=== PATIENT | male | born 1990 | race Caucasian/White ===

== ENCOUNTER → 2018-08-12 13:24 | Outpatient (CLI) | payer SELFPAY ==
[2018-08-12 16:09] LABS: Thyroid Stimulating Hormone 3.92 uIU/mL (0.47-4.68)
== END ==
PROVIDERS: PCP Family Medicine; Visit Provider Internal Medicine
DX: E03.9 Hypothyroidism, unspecified (principal)
CPT/HCPCS: 36415; 84443

== ENCOUNTER → 2019-01-03 14:14 | Outpatient (CLI) | payer OTHER, SELFPAY ==
[2019-01-03 15:29] LABS: Creatinine Urine Random 39.6 mg/dL
[2019-01-03 15:54] LABS: Microalbumi Creatinin Ratio Ur 760.1 ug/mg CR (<30); Microalbumin Urine Random 30.1 mg/dL (0-1.6)
== END ==
PROVIDERS: PCP Student in an Organized Health Care Education/Training Program; Visit Provider Student in an Organized Health Care Education/Training Program
DX: E10.9 Type 1 diabetes mellitus without complications (principal)
CPT/HCPCS: 82043; 82570

== ENCOUNTER → 2019-11-21 14:07 | Outpatient (CLI) | payer OTHER, SELFPAY ==
[2019-11-21 15:33] LABS: BUN Creatinine Ratio 27.1 (6-22); Blood Urea Nitrogen 19 mg/dL (9-20); Carbon Dioxide 27 mmol/L (22-32); Chloride 102 mmol/L (98-107); Cholesterol 232 mg/dL (140-199); Estimated Glomerular Filt Rate > 60.0 mL/min (>60); Glucose 173 mg/dL (70-100); HDL Cholesterol 52 mg/dL (40-60); HEMOLYSIS 18 (0-50); LDL Cholesterol Calculated 166 mg/dL (<100); Potassium 3.8 mmol/L (3.4-5.1); Sodium 142 mmol/L (137-145); Triglycerides 69 mg/dL (35-150); Uric Acid 4.4 mg/dL (3.5-8.5)
[2019-11-21 15:37] LABS: Rheumatoid Factor < 8.6 IU/mL (<12.0)
[2019-11-21 16:27] LABS: Vitamin D 25 Hydroxy (D3) 18.2 ng/mL (30.0-100.0)
[2019-11-21 16:38] LABS: TSH w/ Reflex to FT4 3.75 uIU/mL (0.47-4.68)
[2019-11-28 10:26] LABS: ANA Screen, IFA NEGATIVE (NEGATIVE)
== END ==
PROVIDERS: PCP Student in an Organized Health Care Education/Training Program; Visit Provider Student in an Organized Health Care Education/Training Program
DX: E03.9 Hypothyroidism, unspecified (principal); E10.69 Type 1 diabetes mellitus with other specified complication; E10.9 Type 1 diabetes mellitus without complications; E78.5 Hyperlipidemia, unspecified; M79.673 Pain in unspecified foot; M13.0 Polyarthritis, unspecified
CPT/HCPCS: 36415; 80048; 80061; 82306; 83036; 84443; 84550; 86038; 86430

== ENCOUNTER → 2020-11-10 09:45 | Outpatient (CLI) | payer OTHER, SELFPAY ==
--- NOTE | 2020-11-10 09:48 | DI.RAD.S_ITS ---
PROCEDURE: XR SINUS MIN 3V INDICATIONS: Chronic cough TECHNIQUE: 3 views of the sinuses were acquired. COMPARISON: [facility], , CT SINUS SCREEN, 10/18/2004, 15:01. FINDINGS: Sinuses: The visualized sinuses demonstrate no air-fluid levels or mucosal thickening except at the left maxillary sinus where mild mucosal thickening without air-fluid level appears present. The visualized mastoids also appear clear. Bones: No suspicious bony lesions. Nasal septum is midline. IMPRESSION: No air-fluid level is seen. There is a relatively subtle asymmetric increased radiodensity along the mucosal surface of the left maxillary sinus consistent with mild sinusitis in that area at this time. This may be chronic. On a prior sinus CT from 10/18/04 no mucosal thickening had been present in that area. Dictated by: Rahul Jain M.D. on 11/10/2020 at 11:13 Approved by: Rahul Jain M.D. on 11/10/2020 at 11:16
--- NOTE | 2020-11-10 09:48 | DI.RAD.S_ITS ---
PROCEDURE: XR CHEST 2V INDICATIONS: Chronic cough TECHNIQUE: 2 views of the chest were acquired. COMPARISON: None. FINDINGS: Surgical changes and devices: None. Lungs and pleura: Lungs are clear. No pleural effusions or pneumothorax. Mediastinum: Mediastinal contours are normal. Heart size is normal. Bones and chest wall: No suspicious bony abnormalities. Soft tissues appear unremarkable. IMPRESSION: Normal for age, source of current chronic cough symptoms is not seen. Dictated by: Rahul Jain M.D. on 11/10/2020 at 11:10 Approved by: Rahul Jain M.D. on 11/10/2020 at 11:10
== END ==
PROVIDERS: PCP Student in an Organized Health Care Education/Training Program; Referring Provider Student in an Organized Health Care Education/Training Program; Visit Provider Student in an Organized Health Care Education/Training Program
DX: J40 Bronchitis, not specified as acute or chronic (principal); R05 Cough; R04.0 Epistaxis
CPT/HCPCS: 70220; 71046

== ENCOUNTER → 2021-01-11 07:56 | Outpatient (CLI) | payer OTHER, SELFPAY ==
[2021-01-11 10:21] LABS: Vitamin D 25 Hydroxy (D3) 38.4 ng/mL (30.0-100.0)
[2021-01-13 14:05] LABS: Lipase 35 U/L (23-300)
== END ==
PROVIDERS: PCP Student in an Organized Health Care Education/Training Program; Referring Provider Student in an Organized Health Care Education/Training Program; Visit Provider Student in an Organized Health Care Education/Training Program
DX: E03.9 Hypothyroidism, unspecified (principal); E55.9 Vitamin D deficiency, unspecified
CPT/HCPCS: 36415; 82306; 83690; 84443

== ENCOUNTER 2021-08-29 09:43 | Emergency (ER) | payer OTHER, SELFPAY ==
[2021-08-29 09:58] VITALS: BP 202/111; PULSE 81; RESP 17; TEMP 36.6; O2SAT 100
--- NOTE | 2021-08-29 10:07 | ED_ITS ---
HPI - Abdominal Pain General Chief Complaint: Abdominal Pain Stated Complaint: Abd pain- Sent by [facility] Time Seen by Provider: 08/29/21 10:06 Source: patient Mode of arrival: Wheelchair History of Present Illness HPI narrative: The patient was sent from the walk-in clinic due to concerns for cholecystitis. The patient has right upper quadrant pain. However, patient started experiencing pain yesterday. He works at a nearby [employer]. 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 There is a lot of rotational motion involved. He also does workouts. His workouts require rotational motion also. He has pain in his right back, right flank, and right upper quadrant. He has no nausea or vomiting. He denies abdominal intolerance. He has no history of abdominal or gallbladder disease. He does have anxiety, which is currently quite elevated. He is type 1 diabetic, his glucose was 150 this morning. He denies acute illness. Related Data Previous Rx's Medication Instructions Recorded Glucose: Test Strips #100 each 01/06/19 B-D PEN NEEDLE #400 each 11/12/19 insulin lispro 100 unit/mL 5.5 unit SUBCUT QAC #3 ml 12/09/19 subcutaneous half-unit pen (Humalog Allan KwikPen (U-100)) insulin glargine 100 unit/mL (3 32 unit SUBCUT DAILY #15 ml 02/03/21 mL) subcutaneous pen levothyroxine 150 mcg tablet 150 mcg PO QAM #90 tab 06/28/21 lisinopril 5 mg tablet 5 mg PO DAILY #90 tab 08/04/21 methocarbamol 750 mg tablet 750 mg PO Q6H #30 tab 08/29/21 Allergies Allergy/AdvReac Type Severity Reaction Status Date / Time atorvastatin Allergy Mild kidney Verified 08/29/21 10:05 pain Review of Systems Constitutional Constitutional: Denies body ache(s), Denies chills, Denies fever(s) and Denies headache(s) ENT Ears, Nose, Mouth, and Throat: Denies headache(s), Denies sinus pressure and Denies sore throat Cardiovascular Cardiovascular: Denies chest pain, Denies rapid heart rate and Denies dyspnea Respiratory Respiratory: Denies cough and Denies dyspnea Gastrointestinal Gastrointestinal: Reports as per HPI Genitourinary Genitourinary: Denies testicular pain Musculoskeletal Musculoskeletal: Reports back pain Integumentary/Breasts Skin/Breast: Denies rash Neurologic Neurologic: Denies headache(s) Psychiatric Psychiatric: Reports anxiety Patient History Medical History Acne Ankle pain Anxiety Chicken pox (~1996) Chronic back pain Controlled diabetes mellitus type 1 without complications (03/06/17) Dental caries Depression Diabetes mellitus Hearing loss Hypothyroidism (~1995) Post traumatic stress disorder (PTSD) Restless leg syndrome Seasonal allergies Sleep apnea Surgical History History of repair of pyloric stenosis Family History Father Age: 53 Cancer Hypertension Social History Smoking Status: Former smoker alcohol intake: current substance use type: marijuana Smoking Status: Former smoker alcohol intake frequency: a few times a week Substance Use Type: marijuana Exam Initial Vital Signs Initial Vital Signs: Vital Signs Temperature 98 F 08/29/21 09:58 Pulse Rate 81 08/29/21 09:58 Respiratory Rate 17 08/29/21 09:58 Blood Pressure 202/111 H 08/29/21 09:58 Pulse Oximetry 100 08/29/21 09:58 Const General: cooperative and anxious Nutritional Appearance: well nourished [facility] Head: normocephalic and atraumatic Chest Chest: normal inspection of the chest Resp Auscultation: clear to auscultation bilaterally Cardio Rate: regular rate Rhythm: regular rhythm Heart Sounds: S1 normal, S2 normal and no murmurs GI Inspection: normal to inspection Other: Tenderness along the right costal margin. Mild right upper quadrant tenderness, but the issue seems to be the costal margin. No distension. No masses. No guarding rebound. Normal bowel sounds. Back/Spine/Pelvis Back: normal to inspection and No back tenderness Course Course Course Narrative: Patient's symptoms are much improved with ibuprofen and Robaxin. Ultrasound shows a single gallstone, no suggestion of cholecystitis. Orders Ordered: ED Orders 08/29/21 10:00 Urine Microscopic Stat 08/29/21 10:10 US abdomen limited Stat Discontinued Medications Ibuprofen (Ibuprofen 400 Mg Tablet) 800 mg PO NOW ONE Stop: 08/29/21 10:11 Last Admin: 08/29/21 11:05 Dose: 800 mg Documented by: AIRAM Methocarbamol (Methocarbamol 500 Mg Tablet) 750 mg PO NOW ONE Stop: 08/29/21 10:11 Last Admin: 08/29/21 11:05 Dose: 750 mg Documented by: AIRAM Vital Signs Vital signs: Vital Signs - 8 hr 08/29/21 09:58 Temperature 98 F Pulse Rate 81 Respiratory Rate 17 Blood Pressure 202/111 H Pulse Oximetry 100 MDM - Abdominal Pain Lab Data Labs: Lab Results 08/29/21 Range/Units 10:00 Urine RBC 10-30/hpf H (0-5/HPF) Urine WBC 0-1/hpf (0-5/HPF) Ur Squamous Epith Cells 0-1 /hpf (0-5/HPF) Urine Bacteria Few (2-10) H (None) Ur Culture Indicated? Cult not indicated Point of care testing: Urine Dip Bedside Urine Glucose 250 mg/dl Bedside Urine Bilirubin - Negative Bedside Urine Ketone - Negative Urine Specific [place] 1.025 Bedside Urine Occult Blood +++ Bedside Urine pH 6.0 Bedside Urine Protein - Negative Bedside Urine Urobilinogen - Negative Bedside Urine Nitrite - Negative Bedside Urine Leukocytes - Negative Esterase Imaging Data US - abdomen: Radiologist's Impression: [place] [address] Ultrasound Report Signed Patient: Francis Bazan MR#: [id number] : 1990 Acct:[id number] Age/Sex: 30 / M Date of Service: 08/29/21 Loc: ED Accession Number: [id number] ?? Procedure: US abdomen limited Ordering Provider: Buddy Hendricks MD PROCEDURE: US ABDOMEN LIMITED ? INDICATIONS:? RUQ pain ? TECHNIQUE:? Real-time focused scanning was performed of the abdomen, with image documentation.? ? COMPARISON:? None. ? FINDINGS:? The liver is prominent in size and demonstrates no focal lesions. ? A 7 mm nonobstructing gallstone can seen.? ? The gallbladder wall is not thickened, measuring 3 mm or less.? No specific pericholecystic fluid is seen.? The sonogra phic Rodrigez sign is negative. ? There is minimal biliary dilatation, the common bile duct measures 7-8 mm.? ? No significant pancreatic abnormality is seen on these images.? IMPRESSION:? 7 mm nonobstructing gallstone.? No additional sonographic signs cholecystitis are seen. ? Minimal biliary dilatation, measuring 7-8 mm. ? Prominent liver size. ? Note: Concordant preliminary findings given by the manager regulatory upon the completion of the examination to Dr. Hendricks. ? ? Dictated by: Brodie Jean M.D. on 08/29/2021 at 10:11 ? ? Approved by: Brodie Jean M.D. on 08/29/2021 at 10:15?? Discharge Plan Departure Patient Disposition: Home Clinical Impression: Abdominal muscle strain Qualifiers: Encounter type: initial encounter Qualified Code(s): S39.011A - Strain of muscle, fascia and tendon of abdomen, initial encounter Instructions: DI for Abdominal Muscle Strain Activity Restrictions/Additional Instructions: Advil 2 tablets every 6 hours as needed for pain. Robaxin every 6 hours for spasm. Take the medications at the same time. Rest at home for couple days. I have given you a work release. Follow-up with your doctor if not improved within 3 days. Return here as needed. Prescriptions: New methocarbamol 750 mg tablet 750 mg PO Q6H Qty: 30 RF: 0 No Action (DME) Glucose: Test Strips 0 .Route .MEDSUPPLY Qty: 100 RF: 11 (DME) B-D PEN NEEDLE 8MM Qty: 400 RF: 11 Humalog Allan KwikPen U-100 100 unit/mL insulin pen, half-unit 5.5 unit SUBCUT QAC Qty: 3 RF: 11 levothyroxine 150 mcg tablet 150 mcg PO QAM Qty: 90 RF: 1 lisinopril 5 mg tablet 5 mg PO DAILY Qty: 90 RF: 1 insulin glargine 100 unit/mL (3 mL) insulin pen 32 unit SUBCUT DAILY Qty: 15 RF: 3 Referrals: Devon Gibson MD [Primary Care Provider] - Stand Alone Forms: Work Release Note
--- NOTE | 2021-08-29 10:10 | DI.US.S_ITS ---
PROCEDURE: US ABDOMEN LIMITED INDICATIONS: RUQ pain TECHNIQUE: Real-time focused scanning was performed of the abdomen, with image documentation. COMPARISON: None. FINDINGS: The liver is prominent in size and demonstrates no focal lesions. A 7 mm nonobstructing gallstone can seen. The gallbladder wall is not thickened, measuring 3 mm or less. No specific pericholecystic fluid is seen. The sonographic Rodrigez sign is negative. There is minimal biliary dilatation, the common bile duct measures 7-8 mm. No significant pancreatic abnormality is seen on these images. IMPRESSION: 7 mm nonobstructing gallstone. No additional sonographic signs cholecystitis are seen. Minimal biliary dilatation, measuring 7-8 mm. Prominent liver size. Note: Concordant preliminary findings given by the certified neurodiagnostic technologist upon the completion of the examination to Dr. Hendricks. Dictated by: Brodie Jean M.D. on 08/29/2021 at 10:11 Approved by: Brodie Jean M.D. on 08/29/2021 at 10:15
[2021-08-29] MEDS: methocarbamoL 500 MG TABLET 750 MG PO (11:05)
[2021-08-29] MEDS: IBUPROFEN 400 MG TABLET 800 MG PO (11:05)
[2021-08-29 11:51] LABS: Bacteria Urine Few (2-10); Culture Indicated Urine Cult Not Indicated; RBC Urine 10-30/HPF (0-5/HPF); Squamous Epithelial Cell Urine 0-1 /HPF (0-5/HPF); WBC Urine 0-1/HPF (0-5/HPF)
== END 2021-08-29 11:27 | disposition home or self-care (01) ==
PROVIDERS: Emergency Provider Emergency Medicine; PCP Student in an Organized Health Care Education/Training Program
DX: S39.011A Strain of muscle, fascia and tendon of abdomen, initial encounter (principal); X50.0XXA Overexertion from strenuous movement or load, initial encounter
CPT/HCPCS: 76705; 81003; 81015; 99283

== ENCOUNTER → 2021-09-23 15:36 | Outpatient (CLI) | payer OTHER, SELFPAY ==
[2021-09-23 16:01] LABS: Add Manual Diff / Slide Review NO; Basophils Absolute Auto 0 /uL (0-100); Basophils Percent Auto 0.3 % (0-2); Eosinophils Absolute Auto 100 /uL (0-450); Eosinophils Percent Auto 1.6 % (2-4); Hematocrit 44.3 % (41-53); Hemoglobin 15.4 g/dL (13.5-17.5); Lymphocytes Absolute Auto 2300 /uL (1100-4500); Lymphocytes Percent Auto 29.7 % (25-40); Mean Corpuscular HGB Conc 34.7 % (30-36); Mean Corpuscular Hemoglobin 30.8 PG (26-34); Mean Corpuscular Volume 88.5 fL (80-100); Monocytes Absolute Auto 500 /uL (0-900); Neutrophils Absolute Auto 4700 /uL (1500-7000); Neutrophils Percent Auto 61.4 % (50-75); Platelet Count 249 X10^3/uL (150-400); Red Cell Distribution Width 14.5 % (11.6-14.8); White Blood Cell Count 7.6 X10^3/uL (4.5-11.0)
[2021-09-23 16:13] LABS: Hemoglobin A1C% w Est Avg Glu 6.6 % (4.0-6.0)
[2021-09-23 16:21] LABS: Alanine Aminotransferase 31 IU/L (<50); Albumin Globulin Ratio 1.5 (1.0-2.8); Alkaline Phosphatase 79 U/L (38-126); Aspartate Aminotransferase 33 IU/L (17-59); BUN Creatinine Ratio 16.7 (6-22); Bilirubin Total 1.1 mg/dL (0.2-1.3); Blood Urea Nitrogen 15 mg/dL (9-20); Calcium 9.5 mg/dL (8.4-10.2); Carbon Dioxide 31 mmol/L (22-32); Chloride 98 mmol/L (98-107); Estimated Glomerular Filt Rate > 60.0 mL/min (>60); Gamma Glutamyl Transpeptidase 62 U/L (15-73); Globulin 2.7 g/dL (1.7-4.1); Glucose 342 mg/dL (70-100); HEMOLYSIS < 15 (0-50); Lipase 39 U/L (23-300); Potassium 4.7 mmol/L (3.4-5.1); Sodium 138 mmol/L (137-145); Total Protein 6.7 g/dL (6.3-8.2)
== END ==
PROVIDERS: PCP Student in an Organized Health Care Education/Training Program; Referring Provider Student in an Organized Health Care Education/Training Program; Visit Provider Student in an Organized Health Care Education/Training Program
DX: E10.65 Type 1 diabetes mellitus with hyperglycemia (principal); R10.11 Right upper quadrant pain; F10.10 Alcohol abuse, uncomplicated
CPT/HCPCS: 36415; 80053; 82977; 83036; 83690; 85025

== ENCOUNTER 2021-11-03 15:41 | Emergency (ER) | payer OTHER, SELFPAY ==
[2021-11-03 15:50] VITALS: BP 236/128; PULSE 97; RESP 18; TEMP 37.2; O2SAT 97; BMI 21.9
--- NOTE | 2021-11-03 16:02 | ED_ITS ---
HPI - General Adult General Chief complaint: Hypertension Stated complaint: High BP 220/125 Lowest Time Seen by Provider: 11/03/21 16:02 Source: patient Mode of arrival: Ambulatory Limitations: no limitations History of Present Illness HPI narrative: This is a 31-year-old insulin-dependent diabetic male for his entire life he is on levothyroxine and lisinopril. He has had eye surgery for retinopathy with Lasix, scraping for scar tissue and reattachment of his retina. He was on a medication for his blood pressure kidneys in the past but it made him feel very unwell so they stopped it. He has been his blood pressures were typically in the 180s on primary care visits every 3-6 months. Does not normally check it. Sunday he felt very shaky after having 2 energy drinks, some caffeine and no real food. They checked his glucose was was quite elevated he corrected with his pump but his blood pressure was 210/97. He had multiple checks and has been persistently elevated sometimes in the 200s this week. He had 2 days of headache, his blood pressure was 201 70s at that time. He has not had any new acute vision changes. He denies chest pain, shortness of breath currently. He has got a bit of mild nausea but states he has only had energy drinks today and coffee and no food. No vomiting. No abdominal pain. He states he has a 7 mm stone in his gallbladder which he is aware of. No dysuria, urgency frequency or increasing urine output, no swelling in his extremities. 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 His glucose with his monitor today at this time is 2:50 a.m.. He denies other surgeries besides his eye. No allergies. He quit smoking 5 months ago. He drinks 2 alcoholic drinks nightly and on weekends when he goes out will have 10 alcoholic drinks. No illicit. He does drink 1-3 caffeinated drinks or energy drinks daily. 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 Patient states they discuss starting a blood pressure medication but they were more focused on controlling his glucose and getting his vision changes addressed so this had not been fully addressed. Patient is very polite but adamantly does not really want to do any blood work today. He is open to a chest x-ray. Related Data Previous Rx's Medication Instructions Recorded Glucose: Test Strips #100 each 01/06/19 B-D PEN NEEDLE #400 each 11/12/19 insulin lispro 100 unit/mL 5.5 unit (0.055 mL) SUBCUT QAC #3 12/09/19 subcutaneous half-unit pen ml (Humalog Allan KwikPen (U-100)) insulin glargine 100 unit/mL (3 32 unit (0.32 mL) SUBCUT DAILY #15 02/03/21 mL) subcutaneous pen ml levothyroxine 150 mcg tablet 150 mcg PO QAM #90 tab 06/28/21 lisinopril 5 mg tablet 5 mg PO DAILY #90 tab 08/04/21 methocarbamol 750 mg tablet 750 mg PO Q6H #30 tab 08/29/21 lisinopril 20 mg tablet 20 mg PO DAILY #30 tab 11/03/21 Allergies Allergy/AdvReac Type Severity Reaction Status Date / Time atorvastatin Allergy Mild kidney Verified 09/19/21 09:25 pain Review of Systems Review of Systems ROS Unobtainable: All systems reviewed & are unremarkable except as noted in HPI and below Patient History Medical History Acne Ankle pain Anxiety Chicken pox (~1996) Chronic back pain Controlled diabetes mellitus type 1 without complications (03/06/17) Dental caries Depression Diabetes mellitus Hearing loss Hypothyroidism (~1995) Post traumatic stress disorder (PTSD) Restless leg syndrome Seasonal allergies Sleep apnea Surgical History History of repair of pyloric stenosis Family History Father Age: 53 Cancer Hypertension Social History Smoking Status: Former smoker alcohol intake: current substance use type: marijuana Smoking Status: Former smoker alcohol intake frequency: a few times a week Substance Use Type: marijuana Exam Narrative Exam Narrative: GEN: well nourished, well appearing male, alert and oriented x 3, patient appears to be in mild distress. HEENT: Atraumatic, pupils are equal round reactive to light, extraocular movements are intact, nares are clear. HEART: Regular rate and rhythm without murmur, clicks, rubs. LUNGS:Lungs clear to auscultation, no wheezes, rales, crackles, chest moves symmetrically, no tachypnea accessory muscle use. ABD:bowel sounds normal, nondistended,soft, non-tender, no guarding, rebound, rigidity, no masses noted, no hepatosplenomegaly, no bruit or hepatosplenomegaly. :No CVA tenderness MSCL: Non-tender, no muscle atrophy, muscles strength 5/5 upper and lower extremities, full range of motion, normal gait NEURO:CN 2-12 intact, sensation normal SKIN: No rash, erythema or other skin changes noted. Initial Vital Signs Initial Vital Signs: Vital Signs Temperature 98.9 F 11/03/21 15:50 Pulse Rate 97 H 11/03/21 15:50 Respiratory Rate 18 11/03/21 15:50 Blood Pressure 236/128 H 11/03/21 15:50 Pulse Oximetry 97 11/03/21 15:50 Course Orders Ordered: Discontinued Medications Metoprolol Tartrate (Metoprolol Ir 25 Mg Tablet) 50 mg PO NOW ONE Stop: 11/03/21 16:23 Last Admin: 11/03/21 16:30 Dose: 50 mg Documented by: ADIS Reevaluation(s) Reevaluation #1: Recheck BP 175/96. Discussed recommendations from his primary care service to increase his lisinopril. He had metoprolol as evening so we discussed he can start the lisinopril in the morning it does not half to be this evening. Patient and I discussed his findings today. All questions answered. Return precautions Time: 17:36 Consultations Consultation #1: Dr. Santos covering for Dr. Amador. He recommends increasing lisinopril to 20 mg daily at this time rather than adding a 2nd agent. He will also help facilitate follow-up by making sure Dr. Amador is aware patient was here. We did discuss that patient did not have complete workup of but that he is high risk for cardiac disease as well. Vital Signs Vital signs: Vital Signs - 8 hr 11/03/21 15:50 11/03/21 16:34 11/03/21 17:00 Temperature 98.9 F Pulse Rate 97 H 86 75 Respiratory Rate 18 18 Blood Pressure 236/128 H 232/118 H Pulse Oximetry 97 98 99 11/03/21 17:03 11/03/21 17:30 11/03/21 17:32 Temperature Pulse Rate 75 67 70 Respiratory Rate Blood Pressure 173/92 H 175/96 H Pulse Oximetry 99 96 99 Medical Decision Making Lab Data Labs: Lab Results 11/03/21 Range/Units 15:54 SARS-CoV-2 (PCR) Negative (Negative) Imaging Data Chest x-ray: Radiologist's Impression: [address] [address] XRay Report Signed Patient: Francis Bazan MR#: [id number] : 1990 Acct:[id number] Age/Sex: 31 / M Date of Service: 11/03/21 Loc: ED Accession Number: [id number] ?? Procedure: XR chest 1V Ordering Provider: Reena Pacheco D.O. PROCEDURE:? XR CHEST 1V ? INDICATIONS:? shortness of breath ? TECHNIQUE:? One view of the chest was acquired.? ? COMPARISON:? [facility], CR, XR CHEST 2V, 11/10/2020, 9:49. ? FINDINGS:? ? Surgical changes and devices:? None.? ? Lungs and pleura:? Lungs are clear.? No pleural effusions or pneumothorax.? ? Mediastinum:? Mediastinal contours appear normal.? Heart size is normal.? ? Bones and chest wall:? No suspicious bony lesions.? Overlying soft tissues appear unremarkable.? ? IMPRESSION:? No acute cardiopulmonary disease. ? ? Dictated by: Aria Hernandez M.D. on 11/03/2021 at 16:49 ? ? Approved by: Aria Hernandez M.D. on 11/03/2021 at 16:50?? ECG Data Attestation: I personally reviewed and interpreted this ECG as follows: Interpretation: Sinus rhythm rate 83, WI 152 QRS 82 and QTC 444. Patient has nonspecific change. Elevation in V3 but not appreciated in other leads. Patient does not have prior for comparison. MDM Narrative Medical decision making narrative: This is a 31-year-old insulin-dependent diabetic male with known retinopathy and likely other end-organ disease. Patient comes in feeling shaky with elevated blood pressures in the 200 range consistently for the past week. He has been told he was elevated the 180s in the past. He is on 5 mg lisinopril likely more for nephro protection. Patient is. Polite but does not wish to do any lab work we discussed that I have concerns for potential cardiac or end-organ disease issues and that the only way to check this is with lab work. Patient politely refuses. He is open to chest x-ray, EKG was reviewed. Discussed adding an additional blood pressure medication and he may have his lisinopril adjusted as well. Patient is open to this. His glucose is 250 on his monitor today. Besides his hypertension his vital signs are otherwise appropriate. His exam is otherwise reassuring. Patient has labs from 09/23/2021 which show normal renal function, a serum glucose of 342 and hemoglobin A1c of 6.6 with otherwise negative CBC and CMP. Discharge Plan Departure Patient Disposition: Home Clinical Impression: Hypertension Instructions: DI for High Blood Pressure Activity Restrictions/Additional Instructions: Follow-up with your physician for recheck of blood pressure. I suspect you have had longstanding elevated blood pressure. I recommend having your medications adjusted. I spoke with Dr. Santos who is covering for Dr. Gibson today. They recommend increasing lisinopril from 5mg to 20 mg daily. (You can take 4 tablets of your 5mg lisinopril to finish your home prescription. Prescription sent to [facility] in [place] Please return for fevers, chest pain, shortness of breath, lightheadedness or passing out, decrease in urine output or rapidly increasing amounts and frequency of urine output, elevated or persistently high or low glucose or other new or concerning symptoms. Prescriptions: New lisinopril 20 mg tablet 20 mg PO DAILY Qty: 30 0RF No Action (DME) Glucose: Test Strips 0 .Route .MEDSUPPLY Qty: 100 11RF Dose Instruction: As directed Rx Instructions: Test blood sugars up to 3 times daily (DME) B-D PEN NEEDLE 8MM Qty: 400 11RF Dose Instruction: As directed Rx Instructions: TO ADMINISTER INSULIN UP TO 4 TIMES A DAY Humalog Allan DamirPen U-100 100 unit/mL insulin pen, half-unit 5.5 unit SUBCUT QAC Qty: 3 11RF levothyroxine 150 mcg tablet 150 mcg PO QAM Qty: 90 1RF lisinopril 5 mg tablet 5 mg PO DAILY Qty: 90 1RF insulin glargine 100 unit/mL (3 mL) insulin pen 32 unit SUBCUT DAILY Qty: 15 3RF methocarbamol 750 mg tablet 750 mg PO Q6H Qty: 30 0RF Referrals: Devon Gibson MD [Primary Care Provider] -
--- NOTE | 2021-11-03 16:22 | DI.RAD.S_ITS ---
PROCEDURE: XR CHEST 1V INDICATIONS: shortness of breath TECHNIQUE: One view of the chest was acquired. COMPARISON: [facility], CR, XR CHEST 2V, 11/10/2020, 9:49. FINDINGS: Surgical changes and devices: None. Lungs and pleura: Lungs are clear. No pleural effusions or pneumothorax. Mediastinum: Mediastinal contours appear normal. Heart size is normal. Bones and chest wall: No suspicious bony lesions. Overlying soft tissues appear unremarkable. IMPRESSION: No acute cardiopulmonary disease. Dictated by: Aria Hernandez M.D. on 11/03/2021 at 16:49 Approved by: Aria Hernandez M.D. on 11/03/2021 at 16:50
[2021-11-03 16:23] LABS: COVID19 -Nasal RAPID Negative (Negative)
[2021-11-03] MEDS: METOPROLOL IR 25 MG TABLET 50 MG PO (16:30)
[2021-11-03 16:34] VITALS: BP 232/118; PULSE 86; RESP 18; O2SAT 98
[2021-11-03 17:00] VITALS: PULSE 75; O2SAT 99
[2021-11-03 17:03] VITALS: BP 173/92; PULSE 75; O2SAT 99
[2021-11-03 17:30] VITALS: PULSE 67; O2SAT 96
[2021-11-03 17:32] VITALS: BP 175/96; PULSE 70; O2SAT 99
== END 2021-11-03 17:40 | disposition home or self-care (01) ==
PROVIDERS: Emergency Provider Emergency Medicine; PCP Student in an Organized Health Care Education/Training Program
DX: I10 Essential (primary) hypertension (principal); Z87.891 Personal history of nicotine dependence; Z20.822 Contact with and (suspected) exposure to COVID-19
CPT/HCPCS: 71045; 87635; 93005; 93010; 99283; 99284; C9803

== ENCOUNTER → 2021-11-15 14:45 | Outpatient (CLI) | payer OTHER, SELFPAY ==
[2021-11-15 15:39] LABS: Appearance Urine UA CLEAR; Bilirubin Urine UA NEGATIVE (NEGATIVE); Color Urine UA YELLOW; Glucose Urine UA 2+ g/dL (Negative); Ketones Urine UA NEGATIVE (NEGATIVE); Leukocyte Esterase Urine UA NEGATIVE (NEGATIVE); Nitrite Urine UA NEGATIVE (Negative); Occult Blood Urine UA 3+ (Negative); Protein Urine UA 2+ (Negative); Urobilinogen Urine UA 0.2 E.U./dL (0.2)
[2021-11-15 16:00] LABS: Bacteria Urine None Seen; Culture Indicated Urine Cult Not Indicated; RBC Urine 1-5/HPF (0-5/HPF); Squamous Epithelial Cell Urine None Seen (0-5/HPF); WBC Urine 0-1/HPF (0-5/HPF)
== END ==
PROVIDERS: PCP Student in an Organized Health Care Education/Training Program; Referring Provider Student in an Organized Health Care Education/Training Program; Visit Provider Student in an Organized Health Care Education/Training Program
DX: R31.9 Hematuria, unspecified (principal)
CPT/HCPCS: 81001

== ENCOUNTER → 2021-11-18 09:59 | Outpatient (CLI) | payer OTHER, SELFPAY ==
[2021-11-18 10:59] LABS: Add Manual Diff / Slide Review NO; Basophils Absolute Auto 0 /uL (0-100); Basophils Percent Auto 0.4 % (0-2); Eosinophils Absolute Auto 200 /uL (0-450); Eosinophils Percent Auto 1.9 % (2-4); Hematocrit 46.2 % (41-53); Hemoglobin 16.3 g/dL (13.5-17.5); Lymphocytes Absolute Auto 2600 /uL (1100-4500); Lymphocytes Percent Auto 30.4 % (25-40); Mean Corpuscular HGB Conc 35.2 % (30-36); Mean Corpuscular Hemoglobin 30.7 PG (26-34); Mean Corpuscular Volume 87.1 fL (80-100); Monocytes Absolute Auto 600 /uL (0-900); Monocytes Percent Auto 7.5 % (3-14); Neutrophils Absolute Auto 5100 /uL (1500-7000); Neutrophils Percent Auto 59.8 % (50-75); Platelet Count 263 X10^3/uL (150-400); Red Blood Cell Count 5.31 X10^6/uL (4.5-5.9); Red Cell Distribution Width 13.3 % (11.6-14.8); White Blood Cell Count 8.4 X10^3/uL (4.5-11.0)
[2021-11-18 11:13] LABS: BUN Creatinine Ratio 14.9 (6-22); Blood Urea Nitrogen 13 mg/dL (9-20); Calcium 9.7 mg/dL (8.4-10.2); Carbon Dioxide 34 mmol/L (22-32); Chloride 103 mmol/L (98-107); Estimated Glomerular Filt Rate > 60.0 mL/min (>60); Glucose 75 mg/dL (70-100); HEMOLYSIS < 15 (0-50); Potassium 3.3 mmol/L (3.4-5.1); Sodium 143 mmol/L (137-145)
[2021-11-18 11:44] LABS: Cortisol AM (Before 10AM) 15.5 ug/dL (4.46-22.7)
[2021-11-18 11:45] LABS: TSH w/ Reflex to FT4 2.77 uIU/mL (0.47-4.68)
== END ==
PROVIDERS: PCP Student in an Organized Health Care Education/Training Program; Referring Provider Student in an Organized Health Care Education/Training Program; Visit Provider Student in an Organized Health Care Education/Training Program
DX: I16.1 Hypertensive emergency (principal)
CPT/HCPCS: 36415; 80048; 82384; 82533; 84443; 85025

== ENCOUNTER → 2021-11-23 08:50 | Outpatient (CLI) | payer OTHER, SELFPAY ==
--- NOTE | 2021-11-23 08:54 | DI.CT.S_ITS ---
PROCEDURE: CT ABDOMEN PELVIS WO CON INDICATIONS: Hematuria, flank pain TECHNIQUE: Axial sections were acquired from the lung bases to the pubic symphysis. Coronal and sagittal reformats were performed. For radiation dose reduction, the following was used: automated exposure control, adjustment of mA and/or kV according to patient size. COMPARISON: None. FINDINGS: Image quality: Excellent. Lung bases: Unremarkable. Heart: No significant findings. URINARY: Right Kidney: No stones or hydronephrosis. Right Ureter: No hydroureter. Left Kidney: No stones or hydronephrosis. Left Ureter: No hydroureter. Bladder: Normal wall thickness. No stones. ABDOMEN: Liver: Unremarkable. Gallbladder: There are a few small dependent stones within the gallbladder without wall thickening or pericholecystic fat stranding. Biliary ducts: Unremarkable. Pancreas: Unremarkable. Spleen: Unremarkable. Adrenal Glands: Unremarkable. Stomach and Bowel: Stomach, small bowel loops, and colon are normal in caliber and wall thickness. The appendix is normal in appearance. There is colonic diverticulosis without acute diverticulitis. Peritoneum: No abnormal intraperitoneal fluid. No free air. Ventral Wall: No hernia. Abdominal Nodes: No enlarged retroperitoneal or mesenteric lymph nodes. Vessels: Aorta and inferior vena cava are normal in size. PELVIS: Pelvic Organs: Unremarkable. Pelvic Nodes: Unremarkable. Miscellaneous: No inguinal hernias are seen. Bones: Visualized osseous structures demonstrate no suspicious focal lesions. IMPRESSION: 1. No evidence of nephrolithiasis or obstructive uropathy. 2. No evidence of appendicitis. 3. Colonic diverticulosis without acute diverticulitis. Dictated by: Siddharth De La Garza M.D. on 11/23/2021 at 9:33 Approved by: Siddharth De La Garza M.D. on 11/23/2021 at 9:52
== END ==
PROVIDERS: PCP Student in an Organized Health Care Education/Training Program; Referring Provider Student in an Organized Health Care Education/Training Program; Visit Provider Student in an Organized Health Care Education/Training Program
DX: K57.90 Diverticulosis of intestine, part unspecified, without perforation or abscess without bleeding (principal); R31.9 Hematuria, unspecified; R10.9 Unspecified abdominal pain
CPT/HCPCS: 74176

== ENCOUNTER → 2021-11-28 15:00 | Outpatient (CLI) | payer OTHER, SELFPAY ==
[2021-11-28 15:57] LABS: Appearance Urine UA CLEAR; Bilirubin Urine UA NEGATIVE (NEGATIVE); Color Urine UA YELLOW; Glucose Urine UA 2+ g/dL (Negative); Ketones Urine UA NEGATIVE (NEGATIVE); Leukocyte Esterase Urine UA NEGATIVE (NEGATIVE); Nitrite Urine UA NEGATIVE (Negative); Occult Blood Urine UA 3+ (Negative); Protein Urine UA 1+ (Negative); Specific Gravity Urine UA <=1.005 (1.000-1.035); Urobilinogen Urine UA 0.2 E.U./dL (0.2); pH Urine UA 5.5 (4.5-8.0)
[2021-11-28 16:12] LABS: Bacteria Urine None Seen; Culture Indicated Urine Cult Not Indicated; RBC Urine 1-5/HPF (0-5/HPF); Squamous Epithelial Cell Urine None Seen (0-5/HPF); WBC Urine None Seen (0-5/HPF)
== END ==
PROVIDERS: PCP Student in an Organized Health Care Education/Training Program; Referring Provider Student in an Organized Health Care Education/Training Program; Visit Provider Student in an Organized Health Care Education/Training Program
DX: R10.9 Unspecified abdominal pain (principal); R31.9 Hematuria, unspecified; I16.1 Hypertensive emergency; Z53.20 Procedure and treatment not carried out because of patient's decision for unspecified reasons
CPT/HCPCS: 81001

== ENCOUNTER → 2021-12-09 14:30 | Outpatient (CLI) | payer OTHER, SELFPAY | PROVIDERS: PCP Student in an Organized Health Care Education/Training Program; Referring Provider Student in an Organized Health Care Education/Training Program; Visit Provider Student in an Organized Health Care Education/Training Program | DX: R10.9 Unspecified abdominal pain (principal); Z53.20 Procedure and treatment not carried out because of patient's decision for unspecified reasons; R31.9 Hematuria, unspecified; I16.1 Hypertensive emergency ==

== ENCOUNTER 2022-07-19 04:09 | Emergency (ER) | payer SELFPAY ==
[2022-07-19 04:14] VITALS: BP 185/91; PULSE 99; RESP 16; TEMP 36; O2SAT 99; BMI 21.2
--- NOTE | 2022-07-19 04:14 | ED.GENADULT ---
HPI - General Adult General Chief complaint: Upper Respiratory Symptoms Stated complaint: swollen throat, hard to swallow Time Seen by Provider: 07/19/22 04:11 History of Present Illness HPI narrative: 31-year-old male former smoker with history of hypertension and diabetes presents with family in the chief complaint of sore throat and difficulty swallowing over the course of the day. He denies any runny nose, fever or chills. He is had no chest pain, shortness of breath or cough. He states that he feels like he is gagging and it is caused him to vomit a few times. He denies any swelling of his lips, face and has no rash. He denies any exposure to new substances, foods, lotions, soaps or other Related Data Previous Rx's Medication Instructions Recorded Glucose: Test Strips #100 ea 01/06/19 B-D PEN NEEDLE #400 ea 11/12/19 insulin lispro 100 unit/mL 5.5 unit (0.055 mL) SUBCUT QAC #3 12/09/19 subcutaneous half-unit pen mL (Humalog Allan KwikPen (U-100)) insulin glargine 100 unit/mL (3 32 unit (0.32 mL) SUBCUT DAILY #15 02/03/21 mL) subcutaneous pen mL lisinopril 20 mg tablet 20 mg PO DAILY #90 tabs 12/19/21 levothyroxine 150 mcg tablet 150 mcg PO QAM #90 tabs 12/26/21 acyclovir 5 % topical ointment 1 applic topical QID shingles 7 04/06/22 days #30 grams amlodipine 10 mg tablet 10 mg PO DAILY #90 tabs 06/21/22 hydralazine 25 mg tablet 25 mg PO TID #90 tabs 06/21/22 ketorolac 10 mg tablet 10 mg PO Q6H PRN pain #14 tabs 07/19/22 ondansetron 4 mg disintegrating 4 mg PO TID-QID PRN nausea and 07/19/22 tablet vomiting #10 tabs Allergies Allergy/AdvReac Type Severity Reaction Status Date / Time atorvastatin Allergy Mild kidney Verified 06/21/22 11:22 pain Review of Systems Review of Systems Narrative: GENERAL: Denies chills, fatigue, malaise, fever, sweats. HEENT: See HPI RESPIRATORY: Denies dyspnea, cough, wheezing, hemoptysis, sputum. CARDIOVASCULAR: Denies chest pain, palpitations, orthopnea, edema, GASTROINTESTINAL: See HPI : Denies dysuria, frequency, incontinence, hematuria, urinary retention. MUSCULOSKELETAL: denies weakness, joint pain, or bony pain SKIN: Denies rash, skin lesions, or other NEUROLOGIC: Denies weakness, headache, numbness, change in speech, confusion, seizures, incoordination. PSYCHIATRIC: No concerning psychosocial issues. 12 point review of systems is negative except for those stated above Patient History Medical History Acne Ankle pain Anxiety Chicken pox (~1996) Chronic back pain Controlled diabetes mellitus type 1 without complications (03/06/17) Dental caries Depression Diabetes mellitus Hearing loss Hypothyroidism (~1995) Post traumatic stress disorder (PTSD) Restless leg syndrome Seasonal allergies Shingles Sleep apnea Surgical History History of repair of pyloric stenosis Family History Father Age: 54 Cancer Hypertension Social History Smoking Status: Former smoker alcohol intake: current substance use type: marijuana Smoking Status: Former smoker alcohol intake frequency: a few times a week Substance Use Type: marijuana Exam Narrative Exam Narrative: GENERAL: [31] year old patient appears stated age. Well-developed patient, in mild distress. HEAD: Atraumatic. Normocephalic. EYES: Pupils equal round and reactive. Extraocular motions intact. No scleral icterus. No injection or drainage. ENT: Nose without bleeding, purulent drainage. Throat without erythema, tonsillar hypertrophy or exudate. Airway patent. NECK: Trachea midline. Non tender CARDIOVASCULAR: Regular rate and rhythm without murmurs, gallops, or rubs. RESPIRATORY: Clear to auscultation. Breath sounds equal bilaterally. No wheezes, rales, or rhonchi. GASTROINTESTINAL: Abdomen soft, non-tender, nondistended. EXTREMITIES: No edema or joint tenderness. BACK: Nontender without deformity or crepitance. No flank tenderness. NEURO: AOx3. SKIN: No rash or erythema of visible areas Initial Vital Signs Initial Vital Signs: Vital Signs Temperature 96.8 F L 07/19/22 04:14 Pulse Rate 99 H 07/19/22 04:14 Respiratory Rate 16 07/19/22 04:14 Blood Pressure 185/91 H 07/19/22 04:14 Pulse Oximetry 99 07/19/22 04:14 Oxygen Delivery Method 07/19/22 04:14 Course Orders Ordered: ED Orders 07/19/22 04:35 Throat Culture Stat Discontinued Medications Al Hydrox/Mg Hydrox/Simethicone 20 ml/ Lidocaine HCl 15 ml 0 ml PO NOW ONE Stop: 07/19/22 04:16 Last Admin: 07/19/22 04:21 Dose: 10 ml Documented By: SUSIE Ondansetron HCl (Ondansetron 4 Mg Odt Prepack) 1 bottle MISC SEEINSTR ONE Stop: 07/19/22 04:16 Last Admin: 07/19/22 04:20 Dose: 1 bottle Documented By: SUSIE Vital Signs Vital signs: Vital Signs - 8 hr 07/19/22 04:14 Temperature 96.8 F L Pulse Rate 99 H Respiratory Rate 16 Blood Pressure 185/91 H Pulse Oximetry 99 Oxygen Delivery Method Room Air Medical Decision Making Lab Data Labs: Point of Care Testing Rapid Strep A Negative Point of care testing: Point of Care Testing Rapid Strep A Negative MDM Narrative Additional Information: patient feeling much better after above stated therapies. He is tolerating orals, has no trouble swallowing or breathing. Exam is most consistent with a mild uvulitis. There is no evidence of peritonsillar abscess, strep is negative. We did discuss the potential of using Decadron, however he is a type 1 diabetic and his sugars have been running slightly high lately, as a result we elected not to employed this modality. Patient given return precautions and questions answered to his apparent satisfaction Discharge Plan Departure Patient Disposition: Home Clinical Impression: Uvulitis, Vomiting Instructions: DI for Vomiting -- Adult Activity Restrictions/Additional Instructions: *You have been diagnosed with [uvulitis and vomiting] *What to do: *Please continue to take your regular medications as directed. [x ] New medication prescriptions sent to your pharmacy: [ [facility]] [ ] New medication written as a paper prescription [ ] No new medications given *Please follow up with your primary care provider in 2-3 days, call for an appointment. Let them know you were seen in the Emergency Department and that we ask that you be seen in follow up. We will electronically transmit a record of today's note if your PCP is in our system *If you do not have a primary care provider please contact the [facility] Resource line at [phone]. They will ask some questions about your medical history and help get you set up with a doctor in the community. *Return to Emergency Department if you should have any new, worsening or concerning symptoms, such as [fever greater than 101 F, shaking chills, worsening pain, persistent vomiting or other bothersome symptoms] Prescriptions: New ketorolac 10 mg tablet 10 mg PO Q6H PRN (Reason: pain) Qty: 14 0RF ondansetron 4 mg tablet,disintegrating 4 mg PO TID-QID PRN (Reason: nausea and vomiting) Qty: 10 0RF No Action (DME) Glucose: Test Strips 0 .Route .MEDSUPPLY Qty: 100 11RF Dose Instruction: As directed Rx Instructions: Test blood sugars up to 3 times daily (DME) B-D PEN NEEDLE 8MM Qty: 400 11RF Dose Instruction: As directed Rx Instructions: TO ADMINISTER INSULIN UP TO 4 TIMES A DAY Humalog Allan KwikPen U-100 100 unit/mL insulin pen, half-unit 5.5 unit SUBCUT QAC Qty: 3 11RF lisinopril 20 mg tablet 20 mg PO DAILY Qty: 90 3RF levothyroxine 150 mcg tablet 150 mcg PO QAM Qty: 90 2RF insulin glargine 100 unit/mL (3 mL) insulin pen 32 unit SUBCUT DAILY Qty: 15 3RF acyclovir 5 % ointment 1 applic topical QID 7 Days Qty: 30 1RF Rx Instructions: Minimum 4 times daily to any rash eruption, with potential to go up to 5-6 times daily if helping. amlodipine 10 mg tablet 10 mg PO DAILY Qty: 90 3RF hydralazine 25 mg tablet 25 mg PO TID Qty: 90 0RF Referrals: Devon Gibson MD [Primary Care Provider] -
[2022-07-19] MEDS: ONDANSETRON 4 MG ODT PREPACK 1 BOTTLE MISC (04:20)
[2022-07-19] MEDS: MAG HYDROX/ALUMINUM/SIMETH SUS 20 ML, LIDOCAINE VISCOUS 2% 15 ML PO (04:21)
[2022-07-19 05:44] VITALS: BP 175/74; PULSE 85; RESP 18; O2SAT 100
== END 2022-07-19 05:46 | disposition home or self-care (01) ==
PROVIDERS: Emergency Provider Emergency Medicine; PCP Student in an Organized Health Care Education/Training Program
DX: K12.2 Cellulitis and abscess of mouth (principal); R11.10 Vomiting, unspecified
CPT/HCPCS: 82384; 87070; 87077; 87147; 87880; 99283

== ENCOUNTER → 2022-08-16 10:44 | Outpatient (CLI) | payer SELFPAY ==
[2022-08-21 23:08] LABS: Creatinine, 24 Urine 1208 mg/24 hr (1000-2000); Creatinine,Urine 54.9 mg/dL (Not Estab.); Dopamine, Ur 24hr 125 ug/24 hr (0-510); Epinephrine, U 24hr <2 ug/24 hr (0-20); Norepinephrine Ur 24hr <11 ug/24 hr (0-135)
== END ==
PROVIDERS: PCP Student in an Organized Health Care Education/Training Program; Referring Provider Student in an Organized Health Care Education/Training Program; Visit Provider Student in an Organized Health Care Education/Training Program
DX: I16.1 Hypertensive emergency (principal)
CPT/HCPCS: 82384

== ENCOUNTER → 2022-08-17 08:53 | Outpatient (CLI) | payer SELFPAY ==
--- NOTE | 2022-08-17 09:11 | DI.ECHO.S_ITS ---
[facility] +---------+ : : [address] : : : : [phone] : : : : Phone: [phone]+ Echocardiogram Report + + :Name: YASMIN SMALLWOOD Study Date: 08/17/2022 Height: 67 in : :[facility] ReadingLocation: Weight: 140 lb : : Gender: Male BSA: 1.7 m2 : :: 1990 Age: 31 yrs BP: 165/97 mmHg: :Reason For Study: Hypertension : :Ordering Physician: MICAELA, : :SHRUTHI Performed By: Cedric Beard : :Referring: SHRUTHI HINOJOSA : + + Interpretation Summary The left ventricle is normal in size. There is mild concentric left ventricular hypertrophy. The ejection fraction is estimated to be 65-70%. The right ventricle is normal in size and function. No significant valvular pathology seen. The IVC is of normal diameter and collapses greater than 50% with a sniff. This suggests a low right atrial pressure of 3 mm Hg. Procedure: A two-dimensional transthoracic echocardiogram with color flow and Doppler was performed. The study quality was technically adequate. There is no prior echocardiogram noted for this patient. The patient was in normal sinus rhythm during the exam. Left Ventricle: The left ventricle is normal in size. There is mild concentric left ventricular hypertrophy. There is no thrombus. Left ventricular systolic function is normal. The ejection fraction is estimated to be 65-70%. There are no focal wall motion abnormalities. Diastolic parameters suggest a relaxation abnormality of the left ventricle, consistent with probable normal filling pressures. Right Ventricle: The right ventricle is normal in size and function. Atria: Both atria are normal in size. The interatrial septum grossly appears intact with no obvious evidence for an atrial septal defect. Mitral Valve: The mitral valve is normal in structure and function. There is no mitral regurgitation noted. Aortic Valve: The aortic valve is normal in structure and function. The aortic valve is trileaflet. There is no aortic valve stenosis. There is trace aortic regurgitation. Tricuspid Valve: The tricuspid valve is normal in structure and function. Pulmonary artery pressures cannot be estimated because of the lack of a measurable TR jet velocity. There is trace tricuspid regurgitation. Pulmonic Valve: The pulmonic valve is normal in structure and function. There is no pulmonic valvular regurgitation. Great Vessels: The aortic root is normal size. The dimensions of the ascending aorta are normal. The IVC is of normal diameter and collapses greater than 50% with a sniff. This suggests a low right atrial pressure of 3 mm Hg. Pericardium/ Pleura There is no pericardial effusion. There is no pleural effusion. MMode/2D Measurements & Calculations LVIDd: 4.2 cm LVOT diam: 2.1 cm LVIDs: 2.8 cm Ao root diam: 3.4 cm FS: 33.3 % asc Aorta Diam: 3.0 cm IVSd: 1.2 cm LVPWd: 1.3 cm LV velasco. diameter/BSA (cm/m^2): 2.4 LV sys. diameter/BSA (cm/m^2): 1.6 LA dimension: 3.0 cm RA long axis: 4.9 cm LA A2 area: 17.6 cm2 RA area: 14.1 cm2 LA A4 area: 17.0 cm2 RA vol: 34.1 ml LA length (vol): 5.2 cm RA : 19.6 ml/m2 LA vol: 48.9 ml LA vol index: 28.2 ml/m2 TAPSE_phl: 2.4 cm Doppler Measurements & Calculations Ao V2 max: 155.0 cm/sec LVOT Max Josafat: 131.0 cm/sec Ao V2 mean: 106.0 cm/sec LV V1 max P.9 mmHg Ao max P.0 mmHg LV V1 VTI: 25.0 cm Ao mean P.0 mmHg SURY(I,D): 3.1 cm2 Ao V2 VTI: 28.1 cm SURY(V,D): 2.9 cm2 sev ratio: 0.89 SURY indexed to BSA (cm^2/m^2): 1.8 MV E max josafat: 104.0 cm/sec SV(LVOT): 86.6 ml MV A max josafat: 113.0 cm/sec MV E/A: 0.92 Med Peak E' Josafat: 7.5 cm/sec E/E' med: 13.8 Lat Peak E' Josafat: 11.6 cm/sec E/E' lat: 9.0 E/e' average: 11.4 MV dec time: 0.26 sec AV VR_phl: 0.85 MV P1/2t-pr_phl: 76.0 msec SURY(VTI)/BSA_phl: 1.8 Reading Physician:04:14 PM
== END ==
PROVIDERS: PCP Student in an Organized Health Care Education/Training Program; Referring Provider Student in an Organized Health Care Education/Training Program; Visit Provider Student in an Organized Health Care Education/Training Program
DX: I16.1 Hypertensive emergency (principal)
CPT/HCPCS: 93306

== ENCOUNTER → 2022-09-25 17:29 | Outpatient (CLI) | payer OTHER, SELFPAY ==
--- NOTE | 2022-09-25 17:37 | DI.RAD.S_ITS ---
PROCEDURE: XR CHEST 2V INDICATIONS: Cough, congestion TECHNIQUE: 2 views of the chest were acquired. COMPARISON: [facility], CR, XR CHEST 1V, 11/03/2021, 16:26. [facility], CR, XR CHEST 2V, 11/10/2020, 9:49. FINDINGS: Surgical changes and devices: None. Lungs and pleura: No acute airspace opacity. No pleural effusions or pneumothorax. Mediastinum: Mediastinal contours are normal. Heart size is normal. Bones and chest wall: No suspicious bony abnormalities. Soft tissues appear unremarkable. IMPRESSION: No acute cardiopulmonary process demonstrated radiographically. Dictated by: Stewart Alejandra M.D. on 09/25/2022 at 17:04 Approved by: Stewart Alejandra M.D. on 09/25/2022 at 17:06
== END ==
PROVIDERS: PCP Student in an Organized Health Care Education/Training Program; Referring Provider Student in an Organized Health Care Education/Training Program; Visit Provider Student in an Organized Health Care Education/Training Program
DX: R05.9 Cough, unspecified (principal); Z87.891 Personal history of nicotine dependence
CPT/HCPCS: 71046

== ENCOUNTER → 2022-09-29 09:03 | Outpatient (CLI) | payer OTHER, SELFPAY ==
--- NOTE | 2022-09-29 09:06 | DI.US.S_ITS ---
PROCEDURE: US ABDOMEN LIMITED INDICATIONS: PAIN. HISTORY OF BILIARY DISEASE. TECHNIQUE: Real-time focused scanning was performed of the abdomen, with image documentation. COMPARISON: [facility], CT, CT ABDOMEN PELVIS WO CON, 11/23/2021, 8:54. [facility], US, US ABDOMEN LIMITED, 08/29/2021, 10:36. FINDINGS: The liver is increased in size and demonstrates no focal lesions. Minimal mobile gallbladder sludge can be seen. There are multiple mobile gallstone seen, with the largest measuring up to 9 mm. The gallbladder wall is not thickened, measuring 3 mm or less. No specific pericholecystic fluid is seen. The sonographic Rodrigez sign is negative. There is no biliary dilatation, the common bile duct measures 5-6 mm. No significant pancreatic abnormality is seen on these images. However, the pancreas is not well seen. The right kidney is prominent in size, measuring 13.7 cm, with mildly increased generalized echogenicity. No hydronephrosis is seen. IMPRESSION: Gallbladder sludge and multiple mobile gallstones are seen, without additional sonographic signs of cholecystitis. The common bile duct measures near the upper limits of normal. Mildly enlarged liver. Mildly prominent right kidney size, without hydronephrosis. Dictated by: Brodie Jean M.D. on 09/29/2022 at 15:14 Approved by: Brodie Jean M.D. on 09/29/2022 at 15:15
== END ==
PROVIDERS: PCP Student in an Organized Health Care Education/Training Program; Referring Provider Student in an Organized Health Care Education/Training Program; Visit Provider Student in an Organized Health Care Education/Training Program
DX: K80.20 Calculus of gallbladder without cholecystitis without obstruction (principal); R10.11 Right upper quadrant pain; R16.0 Hepatomegaly, not elsewhere classified
CPT/HCPCS: 76705

== ENCOUNTER → 2022-10-24 12:45 | Outpatient (CLI) | payer OTHER, MEDICAID, SELFPAY ==
[2022-10-24 15:43] LABS: Creatinine Urine Random 59.8 mg/dL; Protein (Total) Urine Random 1012 mg/dL (0-12); Protein Creatinine Ratio Urine 16.92 GRAM/24H
[2022-10-28 11:51] LABS: Renin Activity < 0.167 ng/mL/hr (0.167-5.380)
== END ==
PROVIDERS: PCP Student in an Organized Health Care Education/Training Program; Referring Provider Internal Medicine Cardiovascular Disease; Visit Provider Internal Medicine Cardiovascular Disease
DX: I10 Essential (primary) hypertension (principal)
CPT/HCPCS: 36415; 82088; 82570; 84156; 84244

== ENCOUNTER 2022-10-29 02:21 | Emergency (ER) | payer OTHER, MEDICAID, SELFPAY ==
--- NOTE | 2022-10-29 02:23 | ED_ITS ---
HPI - SOB/Dyspnea General Chief Complaint: Shortness of Breath/Dyspnea Stated Complaint: sob Time Seen by Provider: 10/29/22 02:23 History of Present Illness HPI Narrative: 32-year-old male former smoker with history of hypertension diabetes presents with family in the chief complaint of increasing shortness of breath over the course of the day. He states that he has been having trouble with swelling in his lower extremities for some time and as a result he alternates the dosing of his amlodipine between 5 and 10 mg over the course of the week with the permission of his carding utility tender. He states that he feels short of breath with exertion and when he lays back, he has had some cough and denies much in the way of sputum production. He denies any runny nose or sore throat. He denies any fever. He denies change in his medications or diet. He denies recent trauma, travel or history of blood clot Related Data Previous Rx's Medication Instructions Recorded Glucose: Test Strips #100 ea 01/06/19 B-D PEN NEEDLE #400 ea 11/12/19 insulin lispro 100 unit/mL 5.5 unit (0.055 mL) SUBCUT QAC #3 12/09/19 subcutaneous half-unit pen mL (Humalog Allan KwikPen (U-100)) insulin glargine 100 unit/mL (3 32 unit (0.32 mL) SUBCUT DAILY #15 02/03/21 mL) subcutaneous pen mL lisinopril 20 mg tablet 20 mg PO DAILY #90 tabs 12/19/21 levothyroxine 150 mcg tablet 150 mcg PO QAM #90 tabs 12/26/21 ondansetron 4 mg disintegrating 4 mg PO DAILY PRN nausea and 08/01/22 tablet vomiting #90 tabs clonidine 0.3 mg/24 hr weekly 1 patch transdermal QWEEK #4 ea 09/25/22 transdermal patch amlodipine 5 mg tablet 5 mg PO DAILY #90 tabs 10/24/22 amoxicillin 500 mg capsule 1,000 mg PO Q8H 5 days #30 caps 10/29/22 furosemide 40 mg tablet (Lasix) 40 mg PO DAILY 4 days #4 tabs 10/29/22 Allergies Allergy/AdvReac Type Severity Reaction Status Date / Time atorvastatin Allergy Mild kidney Verified 09/25/22 16:29 pain Review of Systems Review of Systems Narrative: GENERAL: Denies chills, fatigue, malaise, fever, sweats. HEENT: See HPI RESPIRATORY: See HPI CARDIOVASCULAR: See HPI GASTROINTESTINAL: Denies nausea, vomiting, abdominal pain, diarrhea, constipation, melena. : Denies dysuria, frequency, incontinence, hematuria, urinary retention. MUSCULOSKELETAL: See HPI SKIN: Denies rash, skin lesions, or other NEUROLOGIC: Denies weakness, headache, numbness, change in speech, confusion, seizures, incoordination. PSYCHIATRIC: No concerning psychosocial issues. 12 point review of systems is negative except for those stated above Patient History Medical History Acne Ankle pain Anxiety Chicken pox (~1996) Chronic back pain Controlled diabetes mellitus type 1 without complications (03/06/17) Dental caries Depression Diabetes mellitus Hearing loss Hypothyroidism (~1995) Post traumatic stress disorder (PTSD) Restless leg syndrome Seasonal allergies Shingles Sleep apnea Surgical History History of repair of pyloric stenosis Family History Father Age: 54 Cancer Hypertension Social History Smoking Status: Former smoker alcohol intake: current substance use type: marijuana Smoking Status: Former smoker alcohol intake frequency: a few times a week Substance Use Type: marijuana Exam Narrative Exam Narrative: GENERAL: [32] year old patient appears stated age. Well-developed patient, in mild distress. Anxious, rapid shallow breathing HEAD: Atraumatic. Normocephalic. EYES: Pupils equal round and reactive. Extraocular motions intact. No scleral icterus. No injection or drainage. ENT: Nose without bleeding, purulent drainage. Throat without erythema, tonsillar hypertrophy or exudate. Airway patent. NECK: Trachea midline. Non tender CARDIOVASCULAR: Regular rate and rhythm without murmurs, gallops, or rubs. RESPIRATORY: Faint crackles in bilateral bases, he is breathing rapidly and shallow but no use of accessory muscles, no hypoxemia GASTROINTESTINAL: Abdomen soft, non-tender, nondistended. EXTREMITIES: 1+ pitting edema in his bilateral lower extremity BACK: Nontender without deformity or crepitance. No flank tenderness. NEURO: AOx3. SKIN: No rash or erythema of visible areas Initial Vital Signs Initial Vital Signs: Vital Signs Temperature 98.9 F 10/29/22 02:34 Pulse Rate 94 H 10/29/22 02:34 Respiratory Rate 25 H 10/29/22 02:34 Blood Pressure 185/97 H 10/29/22 02:34 Pulse Oximetry 100 10/29/22 02:34 Oxygen Delivery Method 10/29/22 02:34 Course Orders Ordered: ED Orders 10/29/22 02:33 Procalcitonin Stat VBG [Venous Blood Gas] Stat 10/29/22 02:34 XR chest 2V Stat Complete Blood Count AUTO DIFF Stat Comprehensive Metabolic Panel Stat Lactate (Lactic Acid) Stat Lipase Stat Magnesium Stat NT-proBNP (BNP-Adult 18+) Stat Partial Thromboplastin Time Stat Prothrombin Time INR Stat Troponin & CK Cardiac Panel Stat EKG-12 Lead Stat 10/29/22 03:25 Covid-19 + FLU A/B + RSV - PCR Stat Reevaluation(s) Reevaluation #1: Patient admittedly gets crippling anxiety with blood draws and for a significant amount of time refuses blood work or IV but eventually suggest we may attempt an IV. He states that in the past he has received anxiolytics but that seems to make things worse and would prefer not getting any medication to help with the process. Despite our best efforts 1st attempt at an IV was unsuccessful and patient refused any further attempts. He does understand that without IV access and blood work we are at risk for missing underlying diagnoses including significant heart failure or other cardiac issues, electrolyte disturbance, diabetic emergencies or other. Soon after this IV attempt patient's respiratory symptoms have completely resolved, he is calm and absent of any shortness of breath Vital Signs Vital signs: Vital Signs - 8 hr 10/29/22 02:34 Temperature 98.9 F Pulse Rate 94 H Respiratory Rate 25 H Blood Pressure 185/97 H Pulse Oximetry 100 Oxygen Delivery Method Room Air MDM - SOB/Dyspnea Imaging Data Chest x-ray: Radiologist's Impression: Bilateral infiltrates MDM Narrative Medical decision making narrative: [32-year-old male former smoker with history of hypertension and diabetes presents with shortness of breath over the course of the day] Multiple etiologies for patient's symptoms considered including, but not limited to: [Congestive heart failure, cardiac disease, pulmonary embolism, pneumonia, COVID, flu, peripheral edema from amlodipine versus other] Prior Charts reviewed: Including multiple emergency department visits from 2021 including hypertension, uvulitis among others Imaging reviewed: Bibasilar infiltrates Patient shortness of breath completely resolved after attempts at IV and blood draw. Chest x-ray does demonstrate bilateral infiltrates and we will treat with antibiotics. Despite multiple conversations patient refuses any further attempts at lab work or IV. It seems unlikely that any significant underlying diagnosis is present given his complete resolution of symptoms. We discussed multiple times and at length about the risk associated with not completing the workup but patient states he understands and accepts these risks. Given x-ray findings we will treat with antibiotics. We discussed keeping him on amlodipine and adding a diuretic versus switching the amlodipine which could certainly be contributing to peripheral edema and he would prefer not to do that which seems reasonable, allowing his carding utility tender to make changes Patient's symptoms improved over duration of stay with above-stated therapies. Findings and discharge diagnosis discussed with patient/family followed by verbalization of understanding Return precautions discussed with patient/family whom verbalize understanding of diagnosis and plan Discharge Plan Departure Patient Disposition: Home Clinical Impression: Pneumonia, Edema, peripheral Instructions: DI for Pneumonia -- Adult, DI for Peripheral Edema -- Bilateral Activity Restrictions/Additional Instructions: *You have been diagnosed with [pneumonia and bilateral peripheral edema] *What to do: *Please continue to take your regular medications as directed. [x ] New medication prescriptions sent to your pharmacy: [[facility] ] [ ] New medication written as a paper prescription [ ] No new medications given *Please follow up with your primary care provider in 2-3 days, call for an appointment. Let them know you were seen in the Emergency Department and that we ask that you be seen in follow up. We will electronically transmit a record of today's note if your PCP is in our system *If you do not have a primary care provider please contact the [facility] Resource line at [phone]. They will ask some questions about your medical history and help get you set up with a doctor in the community. *Return to Emergency Department if you should have any new, worsening or concerning symptoms, such as [fever greater than 101 F, shaking chills, worsening pain, persistent vomiting or other bothersome symptoms] Prescriptions: New amoxicillin 500 mg capsule 1,000 mg PO Q8H 5 Days Qty: 30 0RF furosemide [Lasix] 40 mg tablet 40 mg PO DAILY 4 Days Qty: 4 0RF No Action (DME) Glucose: Test Strips 0 .Route .MEDSUPPLY Qty: 100 11RF Dose Instruction: As directed Rx Instructions: Test blood sugars up to 3 times daily (DME) B-D PEN NEEDLE 8MM Qty: 400 11RF Dose Instruction: As directed Rx Instructions: TO ADMINISTER INSULIN UP TO 4 TIMES A DAY Humalog Allan Hector U-100 100 unit/mL insulin pen, half-unit 5.5 unit SUBCUT QAC Qty: 3 11RF lisinopril 20 mg tablet 20 mg PO DAILY Qty: 90 3RF levothyroxine 150 mcg tablet 150 mcg PO QAM Qty: 90 2RF ondansetron 4 mg tablet,disintegrating 4 mg PO DAILY PRN (Reason: nausea and vomiting) Qty: 90 1RF amlodipine 5 mg tablet 5 mg PO DAILY Qty: 90 3RF insulin glargine 100 unit/mL (3 mL) insulin pen 32 unit SUBCUT DAILY Qty: 15 3RF clonidine 0.3 mg/24 hr patch weekly 1 patch transdermal QWEEK Qty: 4 11RF Referrals: Devon Gibson MD [Primary Care Provider] - Stand Alone Forms: Patient Portal/API
[2022-10-29 02:31] VITALS: PULSE 95; O2SAT 100
[2022-10-29 02:34] VITALS: BP 185/97; PULSE 94; RESP 25; TEMP 37.2; O2SAT 100; BMI 22.3
--- NOTE | 2022-10-29 02:34 | DI.RAD.S_ITS ---
PROCEDURE: XR CHEST 2V INDICATIONS: SOB TECHNIQUE: 2 views of the chest were acquired. COMPARISON: [facility], CR, XR CHEST 2V, 09/25/2022, 17:44. FINDINGS: Surgical changes and devices: None. Lungs and pleura: Atelectasis and or infiltrate noted in the costophrenic sulci bilaterally. Low lung volumes accentuate pulmonary interstitium Mediastinum: Mediastinal contours are normal. Heart size is normal. Bones and chest wall: No suspicious bony abnormalities. Soft tissues appear unremarkable. IMPRESSION: Bibasilar atelectasis and or infiltrate Approved by: Pepito Fallon M.D. on 10/29/2022 at 6:44
[2022-10-29 02:39] VITALS: BP 181/106; PULSE 107; O2SAT 100
[2022-10-29 04:09] LABS: Influenza A - CEPHEID Flu A NEGATIVE (NEGATIVE); Influenza B - CEPHEID Flu B NEGATIVE (NEGATIVE); Respiratory Syncytial Virus Negative (Negative)
[2022-10-29 04:11] LABS: COVID-19 CEPHEID 4-PLEX PCR Negative (Negative)
[2022-10-29 04:15] VITALS: BP 170/96; PULSE 82; RESP 20; TEMP 36.4; O2SAT 96
== END 2022-10-29 04:00 | disposition home or self-care (01) ==
PROVIDERS: Emergency Provider Emergency Medicine; PCP Student in an Organized Health Care Education/Training Program
DX: J18.9 Pneumonia, unspecified organism (principal); R60.0 Localized edema; R07.9 Chest pain, unspecified; Z79.899 Other long term (current) drug therapy; Z20.822 Contact with and (suspected) exposure to COVID-19
CPT/HCPCS: 0241U; 71046; 93005; 93010; 99281; 99284

== ENCOUNTER → 2022-12-06 15:56 | Outpatient (CLI) | payer OTHER, MEDICAID, SELFPAY ==
[2022-12-06 17:31] LABS: Creatinine Urine Random 76.9 mg/dL
[2022-12-06 18:06] LABS: Microalbumi Creatinin Ratio Ur 21950.5 ug/mg CR (<30)
== END ==
PROVIDERS: PCP Student in an Organized Health Care Education/Training Program; Referring Provider Internal Medicine Cardiovascular Disease; Visit Provider Internal Medicine Cardiovascular Disease
DX: I10 Essential (primary) hypertension (principal)
CPT/HCPCS: 82043; 82570

== ENCOUNTER 2022-12-21 09:32 | Emergency (ER) | payer OTHER, MEDICAID, SELFPAY ==
[2022-12-21] VITALS (31 sets, daily range): BP systolic 161–238; BP diastolic 86–124; PULSE 62–79; RESP 10–17; TEMP 37.1; O2SAT 94–99; BMI 24.5
--- NOTE | 2022-12-21 09:43 | ED_ITS ---
HPI - General Adult <Ministerio Alexandre MD - Last Filed: 12/21/22 22:30> General Chief complaint: Hypertension Stated complaint: sent by DR olivera BP T-3/headache/ Time Seen by Provider: 12/21/22 09:43 History of Present Illness HPI narrative: 32 year old male with history of DM1, hypertension presenting with poorly controlled hypertension, neck pain, headaches. Pt referred from clinic 2/2 blood pressures consistently above 200's. Pt reports that he had difficulty controlling blood pressures over the last several days, pt reports good compliance with his medications. Intermittent nausea, no deyanira abdominal pain. No fevers. Pt reports being resistant to getting labs drawn because he does not like needles. Continues to make urine. Related Data Home Medications Medication Instructions Recorded Confirmed hydralazine 100 mg tablet 100 mg PO TID 11/24/22 12/06/22 losartan 50 mg tablet 50 mg PO BEDTIME 11/24/22 12/06/22 pen needle, diabetic 32 gauge x #50 ea 11/24/22 12/06/22 (BD Ultra-Fine Neelima Pen Needle) Previous Rx's Medication Instructions Recorded Glucose: Test Strips #100 ea 01/06/19 B-D PEN NEEDLE #400 ea 11/12/19 ondansetron 4 mg disintegrating 4 mg PO DAILY PRN nausea and 08/01/22 tablet vomiting #90 tabs clonidine 0.3 mg/24 hr weekly 1 patch transdermal QWEEK #4 ea 09/25/22 transdermal patch propranolol 60 mg capsule,24 60 mg PO DAILY #30 caps 12/06/22 hr,extended release spironolactone 100 mg tablet 100 mg PO DAILY #30 tabs 12/06/22 torsemide 20 mg tablet 20 - 60 mg PO DAILY PRN edema #90 12/06/22 tabs Humalog Allan KwikPen U-100 100 5.5 unit (0.055 mL) SUBCUT QAC #15 12/14/22 unit/mL subcutaneous half-unit pen mL (insulin lispro) Lantus Solostar U-100 Insulin 100 24 unit (0.24 mL) SUBCUT QAM #15 mL 12/14/22 unit/mL (3 mL) subcutaneous pen (insulin glargine) levothyroxine 150 mcg tablet 150 mcg PO QAM #90 tabs 02/28/23 Allergies Allergy/AdvReac Type Severity Reaction Status Date / Time atorvastatin Allergy Mild kidney Verified 12/21/22 09:46 pain Patient History <Ministerio Alexandre MD - Last Filed: 12/21/22 22:30> Medical History Acne Ankle pain Anxiety Chicken pox (~1996) Chronic back pain Controlled diabetes mellitus type 1 without complications (03/06/17) Dental caries Depression Diabetes mellitus Essential hypertension Hearing loss Hypothyroidism (~1995) Post traumatic stress disorder (PTSD) Restless leg syndrome Seasonal allergies Shingles Sleep apnea Surgical History History of repair of pyloric stenosis Family History Father Age: 54 Cancer Hypertension Social History Smoking Status: Former smoker alcohol intake: current substance use type: marijuana Smoking Status: Former smoker alcohol intake frequency: a few times a week Substance Use Type: marijuana Exam <Ministerio Alexandre MD - Last Filed: 12/21/22 22:30> Narrative Exam Narrative: Vitals reviewed. Nursing note reviewed Constitutional: interactive, chronically ill appearing, pale HENT: Moist mucous membranes EYES: No scleral icterus NECK: no masses CV: Well perfused peripherally, no cyanosis present PULM: Unlabored respirations, symmetric chest rise ABD: Non-distended MS: No gross deformities, pitting edema in the bilateral lower extremities SKIN: Warm and dry PSYCH: flat affect NEURO: Follows simple commands, moves extremities, interactive with exam Initial Vital Signs Initial Vital Signs: Vital Signs Temperature 98.7 F 12/21/22 09:40 Pulse Rate 77 12/21/22 09:40 Respiratory Rate 15 12/21/22 09:40 Blood Pressure 228/114 H 12/21/22 09:40 Pulse Oximetry 99 12/21/22 09:40 Oxygen Delivery Method Room Air 12/21/22 09:40 <Kevin Timmons DO - Last Filed: 12/22/22 00:35> Initial Vital Signs Initial Vital Signs: Vital Signs Temperature 98.7 F 12/21/22 09:40 Pulse Rate 77 12/21/22 09:40 Respiratory Rate 15 12/21/22 09:40 Blood Pressure 228/114 H 12/21/22 09:40 Pulse Oximetry 99 12/21/22 09:40 Oxygen Delivery Method Room Air 12/21/22 09:40 Course <Ministerio Alexandre MD - Last Filed: 12/21/22 22:30> Orders Ordered: ED Orders 12/21/22 16:28 COVID19 -Nasal RAPID/Pre-Proc Stat 12/21/22 19:06 Creatinine Urine Random Stat Sodium Urine Random Stat UA Complete [Urinalysis and Microscopic] Stat Urine Culture Stat Discontinued Medications Acetaminophen (Acetaminophen 325 Mg Tablet) 650 mg PO NOW ONE Stop: 12/21/22 19:20 Last Admin: 12/21/22 19:27 Dose: 650 mg Documented By: WILBERT Hydralazine HCl (Hydralazine 25 Mg Tablet) 25 mg PO NOW ONE Stop: 12/21/22 10:08 Last Admin: 12/21/22 10:31 Dose: 25 mg Documented By: ELAINE Hydralazine HCl (Hydralazine 25 Mg Tablet) 100 mg PO NOW ONE Stop: 12/21/22 21:18 Last Admin: 12/21/22 22:12 Dose: 100 mg Documented By: GENE Labetalol HCl (Labetalol 100 Mg Tablet) 100 mg PO NOW ONE Stop: 12/21/22 13:36 Last Admin: 12/21/22 13:47 Dose: 100 mg Documented By: LILIAN Lorazepam (Lorazepam 0.5 Mg Tablet) 1 mg PO NOW ONE Stop: 12/21/22 10:08 Last Admin: 12/21/22 10:32 Dose: 1 mg Documented By: ELAINE Losartan Potassium (Losartan 50 Mg Tablet) 50 mg PO NOW ONE Stop: 12/21/22 10:08 Last Admin: 12/21/22 10:32 Dose: 50 mg Documented By: ELAINE Ondansetron HCl (Ondansetron 4 Mg Odt) 4 mg SL NOW ONE Stop: 12/21/22 10:20 Last Admin: 12/21/22 10:23 Dose: 4 mg Documented By: ELAINE Vital Signs Vital signs: Vital Signs - 8 hr 12/21/22 17:00 12/21/22 17:30 12/21/22 18:00 Pulse Rate 67 67 67 Respiratory Rate 16 13 12 Blood Pressure 201/99 H 201/106 H 211/105 H Pulse Oximetry 97 96 97 Oxygen Delivery Method Room Air 12/21/22 18:30 12/21/22 19:00 12/21/22 19:30 Pulse Rate 62 65 Respiratory Rate 12 14 Blood Pressure 203/100 H 217/112 H 220/109 H Pulse Oximetry 96 97 Oxygen Delivery Method Room Air Room Air 12/21/22 19:30 12/21/22 20:00 12/21/22 20:30 Pulse Rate 66 64 64 Respiratory Rate 10 L 16 12 Blood Pressure 196/97 H 161/86 H Pulse Oximetry 98 96 95 Oxygen Delivery Method 12/21/22 21:00 12/21/22 21:24 12/21/22 22:08 Pulse Rate 65 71 Respiratory Rate 12 14 Blood Pressure 193/97 H 204/99 H Pulse Oximetry 96 97 Oxygen Delivery Method Room Air 12/21/22 22:45 12/21/22 23:00 12/21/22 23:30 Pulse Rate 69 66 68 Respiratory Rate 13 13 Blood Pressure Pulse Oximetry Oxygen Delivery Method 12/21/22 23:38 12/21/22 23:38 12/22/22 00:00 Pulse Rate 70 68 Respiratory Rate 13 14 Blood Pressure 183/97 H Pulse Oximetry Oxygen Delivery Method <Kevin Timmons, DO - Last Filed: 12/22/22 00:35> Orders Ordered: ED Orders 12/21/22 16:28 COVID19 -Nasal RAPID/Pre-Proc Stat 12/21/22 19:06 Creatinine Urine Random Stat Sodium Urine Random Stat UA Complete [Urinalysis and Microscopic] Stat Urine Culture Stat Discontinued Medications Acetaminophen (Acetaminophen 325 Mg Tablet) 650 mg PO NOW ONE Stop: 12/21/22 19:20 Last Admin: 12/21/22 19:27 Dose: 650 mg Documented By: WILBERT Hydralazine HCl (Hydralazine 25 Mg Tablet) 25 mg PO NOW ONE Stop: 12/21/22 10:08 Last Admin: 12/21/22 10:31 Dose: 25 mg Documented By: ELAINE Hydralazine HCl (Hydralazine 25 Mg Tablet) 100 mg PO NOW ONE Stop: 12/21/22 21:18 Last Admin: 12/21/22 22:12 Dose: 100 mg Documented By: GENE Labetalol HCl (Labetalol 100 Mg Tablet) 100 mg PO NOW ONE Stop: 12/21/22 13:36 Last Admin: 12/21/22 13:47 Dose: 100 mg Documented By: LILIAN Lorazepam (Lorazepam 0.5 Mg Tablet) 1 mg PO NOW ONE Stop: 12/21/22 10:08 Last Admin: 12/21/22 10:32 Dose: 1 mg Documented By: ELAINE Losartan Potassium (Losartan 50 Mg Tablet) 50 mg PO NOW ONE Stop: 12/21/22 10:08 Last Admin: 12/21/22 10:32 Dose: 50 mg Documented By: ELAINE Ondansetron HCl (Ondansetron 4 Mg Odt) 4 mg SL NOW ONE Stop: 12/21/22 10:20 Last Admin: 12/21/22 10:23 Dose: 4 mg Documented By: ELAINE Vital Signs Vital signs: Vital Signs - 8 hr 12/21/22 17:00 12/21/22 17:30 12/21/22 18:00 Pulse Rate 67 67 67 Respiratory Rate 16 13 12 Blood Pressure 201/99 H 201/106 H 211/105 H Pulse Oximetry 97 96 97 Oxygen Delivery Method Room Air 12/21/22 18:30 12/21/22 19:00 12/21/22 19:30 Pulse Rate 62 65 Respiratory Rate 12 14 Blood Pressure 203/100 H 217/112 H 220/109 H Pulse Oximetry 96 97 Oxygen Delivery Method Room Air Room Air 12/21/22 19:30 12/21/22 20:00 12/21/22 20:30 Pulse Rate 66 64 64 Respiratory Rate 10 L 16 12 Blood Pressure 196/97 H 161/86 H Pulse Oximetry 98 96 95 Oxygen Delivery Method 12/21/22 21:00 12/21/22 21:24 12/21/22 22:08 Pulse Rate 65 71 Respiratory Rate 12 14 Blood Pressure 193/97 H 204/99 H Pulse Oximetry 96 97 Oxygen Delivery Method Room Air 12/21/22 22:45 12/21/22 23:00 12/21/22 23:30 Pulse Rate 69 66 68 Respiratory Rate 13 13 Blood Pressure Pulse Oximetry Oxygen Delivery Method 12/21/22 23:38 12/21/22 23:38 12/22/22 00:00 Pulse Rate 70 68 Respiratory Rate 13 14 Blood Pressure 183/97 H Pulse Oximetry Oxygen Delivery Method Medical Decision Making <Ministerio Alexandre MD - Last Filed: 12/21/22 22:30> Lab Data 12/21/22 13:36 12/21/22 13:36 Labs: Lab Results 12/21/22 12/21/22 12/21/22 Range/Units 13:36 13:36 13:36 WBC 15.0 H (4.5-11.0) X10^3/uL RBC 3.84 L (4.5-5.9) X10^6/uL Hgb 11.0 L (13.5-17.5) g/dL Hct 31.5 L (41-53) % MCV 82.1 (80-100) fL MCH 28.6 (26-34) PG MCHC 34.8 (30-36) % RDW 14.8 (11.6-14.8) % Plt Count 402 H (150-400) X10^3/uL Neut % (Auto) 77.1 H (50-75) % Lymph % (Auto) 13.7 L (25-40) % [place] % (Auto) 5.8 (3-14) % Eos % (Auto) 2.5 (2-4) % Baso % (Auto) 0.9 (0-2) % Neut # (Auto) 28616 H (5863-7929) /uL Lymph # (Auto) 2000 (5151-9137) /uL [place] # (Auto) 900 (0-900) /uL Eos # (Auto) 400 (0-450) /uL Baso # (Auto) 100 (0-100) /uL Sodium 136 L (137-145) mmol/L Potassium 3.3 L (3.4-5.1) mmol/L Chloride 105 (98-107) mmol/L Carbon Dioxide 27 (22-32) mmol/L BUN 56 H (9-20) mg/dL Creatinine 4.88 H (0.66-1.25) mg/dL Estimated GFR 15 L (>60) mL/min BUN/Creatinine Ratio 11.5 (6-22) Glucose 84 (70-100) mg/dL Calcium 7.9 L (8.4-10.2) mg/dL Total Bilirubin 0.5 (0.2-1.3) mg/dL AST 31 (17-59) IU/L ALT 21 (<50) IU/L Alkaline Phosphatase 98 (38-126) U/L Total Protein 5.7 L (6.3-8.2) g/dL Albumin 2.6 L (3.5-5.0) g/dL Globulin 3.1 (1.7-4.1) g/dL Albumin/Globulin Ratio 0.8 L (1.0-2.8) TSH 8.93 H (0.47-4.68) uIU/mL Free T4 2.19 (0.78-2.19) ng/dL Urine Color Urine Appearance Urine pH (4.5-8.0) Ur Specific [place] (1.000-1.035) Urine Protein (Negative) Urine Glucose (UA) (Negative) g/dL Urine Ketones (NEGATIVE) Urine Occult Blood (Negative) Urine Nitrate (Negative) Urine Bilirubin (NEGATIVE) Urine Urobilinogen (0.2) E.U./dL Ur Leukocyte Esterase (NEGATIVE) Urine RBC (0-5/HPF) Urine WBC (0-5/HPF) Ur Squamous Epith Cells (0-5/HPF) Urine Bacteria (None) Hyaline Casts (None) Ur Culture Indicated? Ur Random Sodium (30-90) mmol/L Urine Creatinine mg/dL SARS-CoV-2 (PCR) (Negative) 12/21/22 12/21/22 12/21/22 Range/Units 16:28 19:06 19:06 WBC (4.5-11.0) X10^3/uL RBC (4.5-5.9) X10^6/uL Hgb (13.5-17.5) g/dL Hct (41-53) % MCV (80-100) fL MCH (26-34) PG MCHC (30-36) % RDW (11.6-14.8) % Plt Count (150-400) X10^3/uL Neut % (Auto) (50-75) % Lymph % (Auto) (25-40) % [place] % (Auto) (3-14) % Eos % (Auto) (2-4) % Baso % (Auto) (0-2) % Neut # (Auto) (0381-3465) /uL Lymph # (Auto) (5315-8471) /uL [place] # (Auto) (0-900) /uL Eos # (Auto) (0-450) /uL Baso # (Auto) (0-100) /uL Sodium (137-145) mmol/L Potassium (3.4-5.1) mmol/L Chloride (98-107) mmol/L Carbon Dioxide (22-32) mmol/L BUN (9-20) mg/dL Creatinine (0.66-1.25) mg/dL Estimated GFR (>60) mL/min BUN/Creatinine Ratio (6-22) Glucose (70-100) mg/dL Calcium (8.4-10.2) mg/dL Total Bilirubin (0.2-1.3) mg/dL AST (17-59) IU/L ALT (<50) IU/L Alkaline Phosphatase (38-126) U/L Total Protein (6.3-8.2) g/dL Albumin (3.5-5.0) g/dL Globulin (1.7-4.1) g/dL Albumin/Globulin Ratio (1.0-2.8) TSH (0.47-4.68) uIU/mL Free T4 (0.78-2.19) ng/dL Urine Color Yellow Urine Appearance Sl cloudy Urine pH 6.5 (4.5-8.0) Ur Specific [place] 1.015 (1.000-1.035) Urine Protein 2+ H (Negative) Urine Glucose (UA) 1+ H (Negative) g/dL Urine Ketones Negative (NEGATIVE) Urine Occult Blood 1+ H (Negative) Urine Nitrate Negative (Negative) Urine Bilirubin Negative (NEGATIVE) Urine Urobilinogen 0.2 (0.2) E.U./dL Ur Leukocyte Esterase Negative (NEGATIVE) Urine RBC 1-5/hpf (0-5/HPF) Urine WBC 5-10/hpf H (0-5/HPF) Ur Squamous Epith Cells 1-5 /hpf (0-5/HPF) Urine Bacteria Few (2-10) H (None) Hyaline Casts 1-5/lpf (None) Ur Culture Indicated? Specimen cultured Ur Random Sodium 36 (30-90) mmol/L Urine Creatinine 48.2 mg/dL SARS-CoV-2 (PCR) Negative (Negative) Point of Care Testing Glucose POC 71 Point of care testing: Point of Care Testing Glucose POC 71 MDM Narrative Medical decision making narrative: 32 year old male presenting with poorly controlled hypertension, headaches, and nausea in the setting of poorly controlled DM1, found to have new onset renal failure. On presentation, vitals notable hypertension. Physical exam notable for ill appearing 32 year old male, reassuring cardiopulmonary exam, benign abdomen, pitting edema in the bilateral lower extremities. Initial concern for electrolyte derangement, medication non-compliance, medication effect, renal failure, infectious etiology, vascular dissection. Pt highly resistive to IV access/lab draw. Discussed that pt would require IV access for further evaluation of possible acute emergent pathology. Pt eventually convinced to allow IV access. Labs notable for DOTTIE with Cr at 4.88, up from baseline for 0.8, one year prior to presentation. No clear evidence of acute infectious. Evaluation of vascular dissection deferred to inpatient team. Pt administered multiple medications to control hypertension without significant effect. Discussed findings with pt and family at bedside. Discussed case with nephrology and internal medicine, pt subsequently accepted for admission at [facility] for ongoing management. <Kevin Timmons DO - Last Filed: 12/22/22 00:35> Lab Data Labs: Lab Results 12/21/22 12/21/22 12/21/22 Range/Units 13:36 13:36 13:36 WBC 15.0 H (4.5-11.0) X10^3/uL RBC 3.84 L (4.5-5.9) X10^6/uL Hgb 11.0 L (13.5-17.5) g/dL Hct 31.5 L (41-53) % MCV 82.1 (80-100) fL MCH 28.6 (26-34) PG MCHC 34.8 (30-36) % RDW 14.8 (11.6-14.8) % Plt Count 402 H (150-400) X10^3/uL Neut % (Auto) 77.1 H (50-75) % Lymph % (Auto) 13.7 L (25-40) % [place] % (Auto) 5.8 (3-14) % Eos % (Auto) 2.5 (2-4) % Baso % (Auto) 0.9 (0-2) % Neut # (Auto) 34961 H (5934-6641) /uL Lymph # (Auto) 2000 (2693-7370) /uL [place] # (Auto) 900 (0-900) /uL Eos # (Auto) 400 (0-450) /uL Baso # (Auto) 100 (0-100) /uL Sodium 136 L (137-145) mmol/L Potassium 3.3 L (3.4-5.1) mmol/L Chloride 105 (98-107) mmol/L Carbon Dioxide 27 (22-32) mmol/L BUN 56 H (9-20) mg/dL Creatinine 4.88 H (0.66-1.25) mg/dL Estimated GFR 15 L (>60) mL/min BUN/Creatinine Ratio 11.5 (6-22) Glucose 84 (70-100) mg/dL Calcium 7.9 L (8.4-10.2) mg/dL Total Bilirubin 0.5 (0.2-1.3) mg/dL AST 31 (17-59) IU/L ALT 21 (<50) IU/L Alkaline Phosphatase 98 (38-126) U/L Total Protein 5.7 L (6.3-8.2) g/dL Albumin 2.6 L (3.5-5.0) g/dL Globulin 3.1 (1.7-4.1) g/dL Albumin/Globulin Ratio 0.8 L (1.0-2.8) TSH 8.93 H (0.47-4.68) uIU/mL Free T4 2.19 (0.78-2.19) ng/dL Urine Color Urine Appearance Urine pH (4.5-8.0) Ur Specific [place] (1.000-1.035) Urine Protein (Negative) Urine Glucose (UA) (Negative) g/dL Urine Ketones (NEGATIVE) Urine Occult Blood (Negative) Urine Nitrate (Negative) Urine Bilirubin (NEGATIVE) Urine Urobilinogen (0.2) E.U./dL Ur Leukocyte Esterase (NEGATIVE) Urine RBC (0-5/HPF) Urine WBC (0-5/HPF) Ur Squamous Epith Cells (0-5/HPF) Urine Bacteria (None) Hyaline Casts (None) Ur Culture Indicated? Ur Random Sodium (30-90) mmol/L Urine Creatinine mg/dL SARS-CoV-2 (PCR) (Negative) 12/21/22 12/21/22 12/21/22 Range/Units 16:28 19:06 19:06 WBC (4.5-11.0) X10^3/uL RBC (4.5-5.9) X10^6/uL Hgb (13.5-17.5) g/dL Hct (41-53) % MCV (80-100) fL MCH (26-34) PG MCHC (30-36) % RDW (11.6-14.8) % Plt Count (150-400) X10^3/uL Neut % (Auto) (50-75) % Lymph % (Auto) (25-40) % [place] % (Auto) (3-14) % Eos % (Auto) (2-4) % Baso % (Auto) (0-2) % Neut # (Auto) (9414-5556) /uL Lymph # (Auto) (5658-5344) /uL [place] # (Auto) (0-900) /uL Eos # (Auto) (0-450) /uL Baso # (Auto) (0-100) /uL Sodium (137-145) mmol/L Potassium (3.4-5.1) mmol/L Chloride (98-107) mmol/L Carbon Dioxide (22-32) mmol/L BUN (9-20) mg/dL Creatinine (0.66-1.25) mg/dL Estimated GFR (>60) mL/min BUN/Creatinine Ratio (6-22) Glucose (70-100) mg/dL Calcium (8.4-10.2) mg/dL Total Bilirubin (0.2-1.3) mg/dL AST (17-59) IU/L ALT (<50) IU/L Alkaline Phosphatase (38-126) U/L Total Protein (6.3-8.2) g/dL Albumin (3.5-5.0) g/dL Globulin (1.7-4.1) g/dL Albumin/Globulin Ratio (1.0-2.8) TSH (0.47-4.68) uIU/mL Free T4 (0.78-2.19) ng/dL Urine Color Yellow Urine Appearance Sl cloudy Urine pH 6.5 (4.5-8.0) Ur Specific [place] 1.015 (1.000-1.035) Urine Protein 2+ H (Negative) Urine Glucose (UA) 1+ H (Negative) g/dL Urine Ketones Negative (NEGATIVE) Urine Occult Blood 1+ H (Negative) Urine Nitrate Negative (Negative) Urine Bilirubin Negative (NEGATIVE) Urine Urobilinogen 0.2 (0.2) E.U./dL Ur Leukocyte Esterase Negative (NEGATIVE) Urine RBC 1-5/hpf (0-5/HPF) Urine WBC 5-10/hpf H (0-5/HPF) Ur Squamous Epith Cells 1-5 /hpf (0-5/HPF) Urine Bacteria Few (2-10) H (None) Hyaline Casts 1-5/lpf (None) Ur Culture Indicated? Specimen cultured Ur Random Sodium 36 (30-90) mmol/L Urine Creatinine 48.2 mg/dL SARS-CoV-2 (PCR) Negative (Negative) Point of Care Testing Glucose POC 71 Point of care testing: Point of Care Testing Glucose POC 71 <Kevin Timmons, DO - Last Filed: 12/22/22 00:35> Critical Care Time Critical Care Time: Yes Total Critical Care Time: 45 Attestation: The high probability of a clinically significant, sudden or life threatening deterioration of the [] system(s) required my full and direct attention, intervention and personal management. The aggregate critical care time was [45] minutes. This time is in addition to time spent performing reported procedures but includes the following: x Data Review and interpretation [x] Patient assessment and monitoring of vital signs [x] Documentation [x] Medication orders and management Discharge Plan Departure Patient Disposition: [facility] Clinical Impression: Acute renal failure Prescriptions: No Action (DME) Glucose: Test Strips 0 .Route .MEDSUPPLY Qty: 100 11RF Dose Instruction: As directed Rx Instructions: Test blood sugars up to 3 times daily (DME) B-D PEN NEEDLE 8MM Qty: 400 11RF Dose Instruction: As directed Rx Instructions: TO ADMINISTER INSULIN UP TO 4 TIMES A DAY ondansetron 4 mg tablet,disintegrating 4 mg PO DAILY PRN (Reason: nausea and vomiting) Qty: 90 1RF insulin glargine [Lantus Solostar U-100 Insulin] 100 unit/mL (3 mL) insulin pen 24 unit SUBCUT QAM Qty: 15 0RF Rx Instructions: Lantus pen only please for insurance coverage Humalog Allan KwikPen U-100 100 unit/mL insulin pen, half-unit 5.5 unit SUBCUT QAC Qty: 15 11RF Rx Instructions: Humalog only for insurance coverage please levothyroxine 150 mcg tablet 150 mcg PO QAM Qty: 90 3RF clonidine 0.3 mg/24 hr patch weekly 1 patch transdermal QWEEK Qty: 4 11RF (DME) pen needle, diabetic [BD Ultra-Fine Neelima Pen Needle] 32 gauge x 5/32 needle See Rx Instructions .ROUTE .MEDSUPPLY Qty: 50 Patient Comments: USE TO INJECT INSULIN PEN 4 TIMES DAILY.Pt is overdue to follow up appt. Please call office.[phone]. Must have appt for further refills Rx Instructions: As directed losartan 50 mg tablet 50 mg PO BEDTIME Patient Comments: TAKE ONE TABLET BY MOUTH NIGHTLY AT BEDTIME hydralazine 100 mg tablet 100 mg PO TID Hold Instructions: Patient insists on once daily dosing Patient Comments: TAKE ONE TABLET BY MOUTH THREE TIMES DAILY torsemide 20 mg tablet 20 - 60 mg PO DAILY PRN (Reason: edema) Qty: 90 0RF spironolactone 100 mg tablet 100 mg PO DAILY Qty: 30 0RF propranolol 60 mg capsule,extended release 24 hr 60 mg PO DAILY Qty: 30 0RF Referrals: Devon Gibson MD [Primary Care Provider] -
[2022-12-21] MEDS: ONDANSETRON 4 MG ODT SL (10:23)
[2022-12-21] MEDS: HYDRALAZINE 25 MG TABLET PO (10:31)
[2022-12-21] MEDS: LORazepam 0.5 MG TABLET 1 MG PO (10:32)
[2022-12-21] MEDS: LOSARTAN 50 MG TABLET PO (10:32)
--- NOTE | 2022-12-21 11:34 | PC.NURSE ---
Pt reports feeling the affect of the ativan and allowed this Rn to attempt IV access but would only let RN attempt on pt's L forearm. This RN attempted once wihtout success. Pt stated that he felt like he was going to have an anxiety attack and per pt request, this RN is giving pt a few minutes before attempting an IV again. notified.
--- NOTE | 2022-12-21 12:12 | PC.NURSE ---
Pt continues to refuse to let this RN place an IV anywhere other than his L forearm. This RN attempted an IV but the moment the needle made contact with his arm pt yelled, take it out!. The RN removed needle and pt refused anymore IV attempts.
[2022-12-21 13:47] LABS: Add Manual Diff / Slide Review NO; Basophils Absolute Auto 100 /uL (0-100); Basophils Percent Auto 0.9 % (0-2); Eosinophils Absolute Auto 400 /uL (0-450); Eosinophils Percent Auto 2.5 % (2-4); Hematocrit 31.5 % (41-53); Lymphocytes Absolute Auto 2000 /uL (1100-4500); Lymphocytes Percent Auto 13.7 % (25-40); Mean Corpuscular HGB Conc 34.8 % (30-36); Mean Corpuscular Hemoglobin 28.6 PG (26-34); Mean Corpuscular Volume 82.1 fL (80-100); Monocytes Absolute Auto 900 /uL (0-900); Monocytes Percent Auto 5.8 % (3-14); Neutrophils Absolute Auto 11600 /uL (1500-7000); Neutrophils Percent Auto 77.1 % (50-75); Platelet Count 402 X10^3/uL (150-400); Red Blood Cell Count 3.84 X10^6/uL (4.5-5.9); Red Cell Distribution Width 14.8 % (11.6-14.8)
[2022-12-21] MEDS: LABETALOL 100 MG TABLET PO (13:47)
[2022-12-21 14:01] LABS: Alanine Aminotransferase 21 IU/L (<50); Albumin 2.6 g/dL (3.5-5.0); Albumin Globulin Ratio 0.8 (1.0-2.8); Alkaline Phosphatase 98 U/L (38-126); Aspartate Aminotransferase 31 IU/L (17-59); BUN Creatinine Ratio 11.5 (6-22); Bilirubin Total 0.5 mg/dL (0.2-1.3); Blood Urea Nitrogen 56 mg/dL (9-20); Calcium 7.9 mg/dL (8.4-10.2); Carbon Dioxide 27 mmol/L (22-32); Chloride 105 mmol/L (98-107); Estimated Glomerular Filt Rate 15 mL/min (>60); Globulin 3.1 g/dL (1.7-4.1); Glucose 84 mg/dL (70-100); HEMOLYSIS < 15 (0-50); Potassium 3.3 mmol/L (3.4-5.1); Sodium 136 mmol/L (137-145); Total Protein 5.7 g/dL (6.3-8.2)
[2022-12-21 14:17] LABS: Free T4, Direct Thyroxine 2.19 ng/dL (0.78-2.19)
[2022-12-21 14:31] LABS: Thyroid Stimulating Hormone 8.93 uIU/mL (0.47-4.68)
--- NOTE | 2022-12-21 14:36 | PC.NURSE ---
1330: Pt continues to refuse IV but is willing to have lab draw blood. Lab notified.
--- NOTE | 2022-12-21 15:01 | PC.NURSE ---
After speaking with MD, pt is willing to have RN place IV in L hand. This RN educated pt on need to place an IV in a larger vein that will tolerate larger IVs and medications but pt refused to have a line placed anywhere else. This RN placed a 20g in L hand.
--- NOTE | 2022-12-21 15:13 | DI.US.S_ITS ---
PROCEDURE: US RENAL COMPLETE INDICATIONS: RENAL FAILURE TECHNIQUE: Real-time scanning was performed of the kidneys and bladder, with image documentation. COMPARISON: [facility], CT, CT ABDOMEN PELVIS WO [facility], 11/23/2021, 8:54. FINDINGS: Kidneys: Right kidney measures 14.5 cm long; left kidney measures 14.8 cm long. Right renal cortical thickness is 2.5 cm; left renal cortical thickness is 3.0 cm. Renal cortical echotexture is increased throughout. No hydronephrosis or nephrolithiasis. No suspicious solid mass lesions. Bladder: Pre-void bladder volume is 69 mL. Post-void residual was not obtained. Pre-void images demonstrate no intraluminal masses or stones. On pre-void images, neither ureteral jets are noted with color Doppler interrogation. (Of note, ureteral jets may not be detectable in up to 25% of cases due to insufficient differences in specific gravity between ureteral and bladder urine). Miscellaneous: There is incidentally noted trace ascites within the right lower quadrant. IMPRESSION: 1. Enlarged bilateral kidneys with increased cortical echogenicity. The significance of this finding is unclear. Differential considerations include diabetic nephropathy, an infiltrative process such as a hematologic neoplasm or amyloidosis, and vasculitis. 2. No hydronephrosis. Dictated by: Elda Amaro M.D. on 12/21/2022 at 16:30 Approved by: Elda Amaro M.D. on 12/21/2022 at 16:36
[2022-12-21 16:51] LABS: COVID19 -Nasal RAPID Negative (Negative)
--- NOTE | 2022-12-21 18:27 | PC.NURSE ---
Pt reports that his own glucometer indicated 71. Pt given 167cc of orange juice to drink. MD notified.
[2022-12-21 19:11] LABS: Appearance Urine UA SL CLOUDY; Bilirubin Urine UA NEGATIVE (NEGATIVE); Color Urine UA YELLOW; Glucose Urine UA 1+ g/dL (Negative); Ketones Urine UA NEGATIVE (NEGATIVE); Leukocyte Esterase Urine UA NEGATIVE (NEGATIVE); Nitrite Urine UA NEGATIVE (Negative); Occult Blood Urine UA 1+ (Negative); Protein Urine UA 2+ (Negative); Specific Gravity Urine UA 1.015 (1.000-1.035); Urobilinogen Urine UA 0.2 E.U./dL (0.2); pH Urine UA 6.5 (4.5-8.0)
[2022-12-21] MEDS: ACETAMINOPHEN 325 MG TABLET 650 MG PO (19:27)
[2022-12-21 19:31] LABS: Bacteria Urine Few (2-10); Culture Indicated Urine Specimen Cultured; Hyaline Casts Urine 1-5/LPF; RBC Urine 1-5/HPF (0-5/HPF); Squamous Epithelial Cell Urine 1-5 /HPF (0-5/HPF); WBC Urine 5-10/HPF (0-5/HPF)
[2022-12-21 19:34] LABS: Creatinine Urine Random 48.2 mg/dL; Sodium Urine Random 36 mmol/L (30-90)
[2022-12-21] MEDS: HYDRALAZINE 25 MG TABLET 100 MG PO (22:12)
[2022-12-22] VITALS: PULSE 68; RESP 14
[2022-12-22 00:30] VITALS: PULSE 80; RESP 17
[2022-12-22 01:00] VITALS: PULSE 75; RESP 16
[2022-12-22 01:03] VITALS: BP 187/96; PULSE 74; RESP 13
--- NOTE | 2022-12-22 01:06 | PC.NURSE ---
His blood glucose is 154 now.
== END 2022-12-22 01:26 | disposition short-term general hospital (02) ==
PROVIDERS: Emergency Medicine; Emergency Provider Emergency Medicine; PCP Student in an Organized Health Care Education/Training Program
DX: N17.9 Acute kidney failure, unspecified (principal); I10 Essential (primary) hypertension; R79.89 Other specified abnormal findings of blood chemistry; Z20.822 Contact with and (suspected) exposure to COVID-19
CPT/HCPCS: 36415; 76770; 80053; 81001; 82570; 82962; 84300; 84439; 84443; 85025; 87086; 87635; 93005; 99284; 99285; C9803

== ENCOUNTER 2023-04-07 22:45 | Emergency (ER) | payer MEDICARE, MEDICAID, SELFPAY ==
--- NOTE | 2023-04-07 23:03 | DI.RAD.S_ITS ---
PROCEDURE: XR CHEST 2V INDICATIONS: flushed CP feeling after dialysis cather use today TECHNIQUE: 2 views of the chest were acquired. COMPARISON: [facility], CR, XR CHEST 2V, 10/29/2022, 2:36. [facility], CR, XR CHEST 2V, 09/25/2022, 17:44. FINDINGS: Surgical changes and devices: Double-lumen presumed dialysis catheter extends into the right atrium from right-sided approach. Lungs and pleura: Lungs are clear. No pleural effusions or pneumothorax. Mediastinum: Mediastinal contours are normal. Heart size is normal. Bones and chest wall: No suspicious bony abnormalities. Soft tissues appear unremarkable. IMPRESSION: Presumed dialysis catheter in normal position, source of chest pain is not seen. Dictated by: Rahul Jain M.D. on 04/08/2023 at 0:05 Approved by: Rahul Jain M.D. on 04/08/2023 at 0:06
[2023-04-07 23:10] VITALS: BP 183/75; PULSE 70; RESP 20; TEMP 36.6; O2SAT 100
--- NOTE | 2023-04-07 23:21 | PC.NURSE ---
Pt denies any chest discomfort on arrival, states t was transient and occurred for short time immediately after post-dialysis port flush. Pt declines IV, informing this RN he has severe PTSD. Also states that he takes medications at night for severe hypertension and meds are due now. Provider informed.
--- NOTE | 2023-04-07 23:25 | PC.NURSE ---
MD Dean approved pt to take home meds for hypertension. Pt taking the following: Carvedilol 25 mg Felodipine 5 mg Losartan 50 mg Isosorbide dinatrate 30 mg
[2023-04-07 23:31] VITALS: PULSE 71; O2SAT 100
--- NOTE | 2023-04-07 23:34 | PC.NURSE ---
Safe handoff report to ROYAL Mckay. Pt A&Ox4, sitting comfortably on bed, denies chest pain or discomfort or other concerning symptoms.
[2023-04-08] VITALS: BP 182/89; PULSE 72; O2SAT 100
[2023-04-08 00:30] VITALS: BP 169/81; PULSE 70; O2SAT 100
[2023-04-08 01:00] VITALS: BP 184/87; PULSE 79; O2SAT 99
--- NOTE | 2023-04-08 01:11 | ED.GENADULT ---
HPI - General Adult General Chief complaint: Syncope Stated complaint: 07/31 chest pain after dialysis Time Seen by Provider: 04/07/23 22:49 Source: patient and EMS Mode of arrival: EMS History of Present Illness HPI narrative: 32-year-old gentleman with type 1 diabetes renal failure on dialysis, severe hypertension difficult to control, anxiety who is finishing up his usual dialysis this afternoon. As a nurse was flushing his tunneled dialysis catheter he describes a acute painful almost internal burp/bubble holding painful feeling that persisted for approximately 20 minutes. Associated with severe central chest pain. Per dialysis protocol he was given 3 sublingual nitroglycerin with subsequent hypotension, systolics down to the 60s. Medics were contacted and he was transferred to [facility] for further evaluation. He is awake, alert and appropriate. On arrival pain is significantly improved to almost resolved. He declines IV and lab work at this time and requests to be able to take his evening blood pressure medications. Aside from today's acute issues he is not noticed fever, chills, chest pain, diaphoresis feels that his blood sugars have been in good control recently. Related Data Home Medications Medication Instructions Recorded Confirmed hydralazine 100 mg tablet 100 mg PO TID 11/24/22 01/18/23 losartan 50 mg tablet 50 mg PO BEDTIME 11/24/22 01/18/23 pen needle, diabetic 32 gauge x #50 ea 11/24/22 01/18/23 (BD Ultra-Fine Neelima Pen Needle) carvedilol 25 mg tablet 25 mg PO BID 01/18/23 01/18/23 cyclobenzaprine 5 mg tablet 5 mg PO TID PRN 01/18/23 01/18/23 furosemide 80 mg tablet 80 mg PO BID 01/18/23 01/18/23 isosorbide dinitrate 30 mg tablet 30 mg PO BID 01/18/23 01/18/23 sevelamer HCl 800 mg tablet 1,600 mg PO TID 01/18/23 01/18/23 trazodone 50 mg tablet 50 mg PO BEDTIME PRN 01/18/23 01/18/23 Previous Rx's Medication Instructions Recorded Glucose: Test Strips #100 ea 01/06/19 B-D PEN NEEDLE #400 ea 11/12/19 ondansetron 4 mg disintegrating 4 mg PO DAILY PRN nausea and 08/01/22 tablet vomiting #90 tabs clonidine 0.3 mg/24 hr weekly 1 patch transdermal QWEEK #4 ea 09/25/22 transdermal patch spironolactone 100 mg tablet 100 mg PO DAILY #30 tabs 12/06/22 Humalog Allan KwikPen U-100 100 5.5 unit (0.055 mL) SUBCUT QAC #15 12/14/22 unit/mL subcutaneous half-unit pen mL (insulin lispro) Lantus Solostar U-100 Insulin 100 24 unit (0.24 mL) SUBCUT QAM #15 mL 12/14/22 unit/mL (3 mL) subcutaneous pen (insulin glargine) levothyroxine 150 mcg tablet 150 mcg PO QAM #90 tabs 12/19/22 felodipine 5 mg tablet,extended 5 mg PO TID #270 tabs 02/13/23 release 24 hr Allergies Allergy/AdvReac Type Severity Reaction Status Date / Time atorvastatin Allergy Mild kidney Verified 01/18/23 15:24 pain Review of Systems Review of Systems Narrative: Pertinent positive and negative findings as per HPI Patient History Medical History Acne Ankle pain Anxiety Chicken pox (~1996) Chronic back pain Dental caries Depression Diabetes mellitus type 1 Hearing loss Hypothyroidism (~1995) Post traumatic stress disorder (PTSD) Restless leg syndrome Seasonal allergies Shingles Sleep apnea Surgical History History of repair of pyloric stenosis Family History Father Age: 55 Cancer Hypertension Social History Smoking Status: Former smoker alcohol intake: current substance use type: marijuana Smoking Status: Former smoker alcohol intake frequency: a few times a week Substance Use Type: marijuana Exam Initial Vital Signs Initial Vital Signs: Vital Signs Temperature 97.8 F 04/07/23 23:10 Pulse Rate 70 04/07/23 23:10 Respiratory Rate 20 04/07/23 23:10 Blood Pressure 183/75 H 04/07/23 23:10 Pulse Oximetry 100 04/07/23 23:10 Oxygen Delivery Method Room Air 04/07/23 23:10 General: Chronically ill-appearing but in no acute distress. Able to give a complete and coherent history. HEENT: Moist mucous membranes, normal sclera with reactive pupils, Respiratory: Lungs are clear to auscultation, no wheezing no rales no rhonchi. Full and symmetrical air movement. Tunneled dialysis catheter in the right upper chest is unremarkable Cardiac: Regular rate and rhythm no murmurs no bruits Abdomen: Soft, nontender, good bowel tones, no flank pain Skin: Warm and dry, no rashes Neurologic: Grossly neurologically intact with no obvious asymmetries or abnormalities Extremities: No trauma, well perfused Psych: Cooperative, appropriate insight and affect Course Orders Ordered: ED Orders 04/07/23 22:49 Complete Blood Count AUTO DIFF Stat Comprehensive Metabolic Panel Stat Troponin I Stat 04/07/23 22:50 EKG-12 Lead Stat 04/07/23 23:03 XR chest 2V Stat Discontinued Medications Aspirin (Aspirin 81 Mg Chew Tab) 324 mg PO NOW ONE Stop: 04/07/23 22:50 Last Admin: 04/07/23 23:50 Dose: Not Given Documented By: DEMI Vital Signs Vital signs: Vital Signs - 8 hr 04/07/23 23:10 04/07/23 23:31 04/08/23 00:00 Temperature 97.8 F Pulse Rate 70 71 Respiratory Rate 20 Blood Pressure 183/75 H 182/89 H Pulse Oximetry 100 100 Oxygen Delivery Method Room Air 04/08/23 00:00 04/08/23 00:30 04/08/23 00:30 Temperature Pulse Rate 72 70 Respiratory Rate Blood Pressure 169/81 H Pulse Oximetry 100 100 Oxygen Delivery Method Medical Decision Making [facility] Narrative Medical decision making narrative: CC: Sensation of ?chest bubble? with significant pain while flushing tunneled dialysis catheter after dialysis run. This is an acute problem uncertain prognosis Complicating co-morbidities: Chronic dialysis patient, type 1 diabetes, hypertension Data collected from: patient, Medical records reviewed: Prior ER notes regarding renal failure, peripheral edema and hypertension are reviewed Differential considered: Small air embolism from tunneled dialysis catheter, acute coronary syndrome, pulmonary embolism, pneumothorax, Exam documented above, pertinent findings include: Entirely benign exam at this point. No jugular venous distention, lungs are completely clear. No murmurs appreciated Lab Test results independently reviewed as above. Pertinent findings: Patient declined lab work from the emergency department today Independently reviewed EKG Sinus rhythm at a rate of 69 Leftward axis, normal intervals No acute ischemic changes Imaging studies independently reviewed: Chest x-ray is unremarkable. No pneumothorax, no pneumomediastinum. No consolidated findings. Discussion: 32-year-old gentleman presents after feeling a bubble like feeling in his chest after dialysis catheter was discontinued from dialysis machine. He was given sublingual nitro at the clinic with subsequent significant hypotension. He did have approximately 20 minutes of chest pain that has now resolved. Initial EKG is unremarkable as is chest x-ray. He feels his absolutely related to the dialysis catheter itself. He declined any additional workup for acute coronary syndrome and stated his main reason for coming to the emergency department was to make sure with safe for him to take his evening blood pressure medications. By the time he arrived in the emergency department his blood pressure is again significantly elevated and taking his evening medications is not only safe but also recommended. At this point he has regular follow-up with multiple physicians and dialysis scheduled in another 72 hours. No evidence of acute coronary syndrome. No pneumothorax, obvious air embolism or consequential hemodynamic instability. He is alert appropriate and he is safe for discharge home Discharge Plan Departure Patient Disposition: Home Clinical Impression: Hemodialysis status Chest pain Qualifiers: Chest pain type: unspecified Qualified Code(s): R07.9 - Chest pain, unspecified Type 1 diabetes Qualifiers: Diabetes mellitus complication status: with other specified complication Qualified Code(s): E10.69 - Type 1 diabetes mellitus with other specified complication Hypertension Qualifiers: Hypertension type: primary hypertension Qualified Code(s): I10 - Essential (primary) hypertension Activity Restrictions/Additional Instructions: Thank you for coming in today The sensation that you described sounds almost like a small air bubble that was in the dialysis catheter at the time it was flushed. That could have given you the bubble like feeling in your heart and the chest pain lasting approximately 20 minutes. On arrival in the emergency department you are certainly feeling better. Your EKG is reassuring. There is no evidence of acute heart disease at this time. Your blood pressures returned to normal after your hypotension secondary to the nitrates given at dialysis for your chest pain. Please take all of your usual nighttime medications I encourage you to keep all scheduled appointments including your hemodialysis. If you find that you are getting worse or develop any new symptoms, please feel free to return to the emergency department for further evaluation. Prescriptions: No Action (DME) Glucose: Test Strips 0 .Route .MEDSUPPLY Qty: 100 11RF Dose Instruction: As directed Rx Instructions: Test blood sugars up to 3 times daily (DME) B-D PEN NEEDLE 8MM Qty: 400 11RF Dose Instruction: As directed Rx Instructions: TO ADMINISTER INSULIN UP TO 4 TIMES A DAY ondansetron 4 mg tablet,disintegrating 4 mg PO DAILY PRN (Reason: nausea and vomiting) Qty: 90 1RF insulin glargine [Lantus Solostar U-100 Insulin] 100 unit/mL (3 mL) insulin pen 24 unit SUBCUT QAM Qty: 15 0RF Rx Instructions: Lantus pen only please for insurance coverage Humalog Allan KwikPen U-100 100 unit/mL insulin pen, half-unit 5.5 unit SUBCUT QAC Qty: 15 11RF Rx Instructions: Humalog only for insurance coverage please levothyroxine 150 mcg tablet 150 mcg PO QAM Qty: 90 3RF felodipine 5 mg tablet extended release 24 hr 5 mg PO TID Qty: 270 1RF clonidine 0.3 mg/24 hr patch weekly 1 patch transdermal QWEEK Qty: 4 11RF (DME) pen needle, diabetic [BD Ultra-Fine Neelima Pen Needle] 32 gauge x 5/32 needle See Rx Instructions .ROUTE .MEDSUPPLY Qty: 50 Patient Comments: USE TO INJECT INSULIN PEN 4 TIMES DAILY.Pt is overdue to follow up appt. Please call office.[phone]. Must have appt for further refills Rx Instructions: As directed losartan 50 mg tablet 50 mg PO BEDTIME Patient Comments: TAKE ONE TABLET BY MOUTH NIGHTLY AT BEDTIME hydralazine 100 mg tablet 100 mg PO TID Hold Instructions: Patient insists on once daily dosing Patient Comments: TAKE ONE TABLET BY MOUTH THREE TIMES DAILY spironolactone 100 mg tablet 100 mg PO DAILY Qty: 30 0RF carvedilol 25 mg tablet 25 mg PO BID Rx Instructions: must administer with a meal/food cyclobenzaprine 5 mg tablet 5 mg PO TID PRN furosemide 80 mg tablet 80 mg PO BID isosorbide dinitrate 30 mg tablet 30 mg PO BID Rx Instructions: allow nitrate-free interval of 12-14 hrs per 24-hr period sevelamer HCl 800 mg tablet 1,600 mg PO TID Rx Instructions: must administer with a meal/food trazodone 50 mg tablet 50 mg PO BEDTIME PRN Referrals: Devon Gibson MD [Primary Care Provider] - Stand Alone Forms: Patient Portal/API
[2023-04-08 01:30] VITALS: PULSE 82; O2SAT 99
[2023-04-08 01:39] VITALS: TEMP 36.5
== END 2023-04-08 01:39 | disposition home or self-care (01) ==
PROVIDERS: Emergency Provider Emergency Medicine; PCP Student in an Organized Health Care Education/Training Program
DX: R07.9 Chest pain, unspecified (principal); I10 Essential (primary) hypertension; E10.69 Type 1 diabetes mellitus with other specified complication; Z99.2 Dependence on renal dialysis; Z87.891 Personal history of nicotine dependence
CPT/HCPCS: 71046; 93005; 99283

== ENCOUNTER → 2023-06-01 12:39 | Outpatient (CLI) | payer MEDICARE, MEDICAID, SELFPAY ==
--- NOTE | 2023-06-01 | DI.US.S_ITS ---
ULTRASOUND OF RIGHT BREAST: 06/01/2023 CLINICAL: Palpable right breast lump. Comparison is made to exam dated: 06/01/2023 mammogram - [facility]. Color flow ultrasound of the right breast was performed. Morales scale images of the real-time examination were reviewed. There is prominent subareolar male breast tissue. Two more focal areas of hypoechoic tissue are noted measuring approximately 2.3 x 0.7 x 1.3 cm and 0.5 x 0.2 x 0.4 cm in size. There is mild adjacent vascularity. There is also an isoechoic mass noted adjacent to these hypoehoic masses measuring 1.0 x 0.7 x 0.5 cm. These are likely related to visualized gynecomastia seen on today's comparison mammogram. IMPRESSION: PROBABLY BENIGN Suspected changes of gynecomastia which are probably benign. A follow up mammogram and ultrasound in 6 months is recommended to document stability. Also, recommend clinical follow up for persistent or worsening symptoms or development of any new suspicious features. A follow-up mammogram and an ultrasound in 6 months is recommended to demonstrate stability. Findings and recommendations were conveyed to the patient during today's evaluation. This exam was interpreted at Station ID: [id number]. Electronically Signed By: Shawn Stahl M.D. aty/:06/02/2023 00:23:17 letter sent: Followup Recommended Ultrasound BI-RADS: 3 Probably benign
--- NOTE | 2023-06-01 12:41 | DI.US.S_ITS ---
ULTRASOUND OF LEFT BREAST: 06/01/2023 CLINICAL: Palpable left breast lump. Comparison is made to exam dated: 06/01/2023 mammogram - [facility]. Color flow and real-time ultrasound of the left breast were performed. Morales scale images of the real-time examination were reviewed. There is a 0.6 cm x 0.4 cm x 0.5 cm mass in the left breast central to the nipple in the retroareolar region. This mass is hyperechoic with no posterior acoustic shadowing or enhancement. This correlates over area of palpated and clinical concernand. Color flow imaging demonstrates that there is an adjacent vascularity. IMPRESSION: PROBABLY BENIGN The 0.6 cm x 0.4 cm x 0.5 cm mass in the left breast is consistent with a lipoma versus gynecomastia and is probably benign. A follow-up mammogram and an ultrasound in 6 months is recommended to demonstrate stability. Findings and recommendations were conveyed to the patient during today's evaluation. This exam was interpreted at Station ID: [id number]. Electronically Signed By: Shawn Stahl M.D. at/:06/01/2023 23:36:53 letter sent: Followup Recommended Ultrasound BI-RADS: 3 Probably benign
--- NOTE | 2023-06-01 12:41 | DI.MG.S_ITS ---
MALE BILATERAL DIGITAL DIAGNOSTIC MAMMOGRAM 3D/2D: 06/01/2023 CLINICAL: Left lump x 6 weeks. Right lump x3 weeks. CBE done. Port on Right for dialysis. No prior exams were available for comparison. There is gynecomastia in both breasts that correlates with clinical concern, palpable abnormality, and reported tenderness. No other significant masses, calcifications, or other findings are seen in either breast. IMPRESSION: INCOMPLETE: NEEDS ADDITIONAL IMAGING EVALUATION Limited evaluation of the right breast secondary to inability to obtain right craniocaudal view secondary to presence of port device. There is likely bilateral gynecomastia. However, further evaluation with bilateral breast ultrasound is recommend and is scheduled to immediately follow this exam. This exam was interpreted at Station ID: [id number]. NOTE: For mammograms, a report in lay terms will be sent to the patient. Approximately 15% of breast malignancies will not be visualized mammographically. In the management of a palpable breast mass, a negative mammogram must not discourage biopsy of a clinically suspicious lesion. Electronically Signed By: Shawn Stahl M.D. aty/:06/01/2023 23:29:11 ACR BI-RADS Category 0: Incomplete [id number]
== END ==
PROVIDERS: PCP Pediatrics; Referring Provider Pediatrics; Visit Provider Pediatrics
DX: R92.8 Other abnormal and inconclusive findings on diagnostic imaging of breast (principal); N63.10 Unspecified lump in the right breast, unspecified quadrant; N63.20 Unspecified lump in the left breast, unspecified quadrant; N62 Hypertrophy of breast; N64.4 Mastodynia; Z95.828 Presence of other vascular implants and grafts
CPT/HCPCS: 76642; 77066; G0279

== ENCOUNTER 2023-10-21 13:09 | Emergency (ER) | payer MEDICARE, MEDICAID, SELFPAY ==
[2023-10-21] VITALS (27 sets, daily range): BP systolic 121–203; BP diastolic 62–98; PULSE 64–80; RESP 7–26; TEMP 36.4–37; O2SAT 96–100; BMI 21.9
--- NOTE | 2023-10-21 13:32 | DI.RAD.S_ITS ---
PROCEDURE: XR CHEST 1V INDICATIONS: chest pain TECHNIQUE: One view of the chest was acquired. COMPARISON: [facility], CR, XR CHEST 2V, 04/07/2023, 23:26. [facility], CR, XR CHEST 2V, 10/29/2022, 2:36. FINDINGS: Surgical changes and devices: Of right dialysis catheter terminates in the right atrium. Lungs and pleura: Mildly low lung volumes. No dense consolidation or pleural effusion. Mediastinum: Heart size is at the upper limit of normal. Bones and chest wall: Unremarkable IMPRESSION: Single view radiograph with mildly low lung volumes. No acute abnormality. Dictated by: Jose Ronquillo M.D. on 10/21/2023 at 14:09 Approved by: Jose Ronquillo M.D. on 10/21/2023 at 14:10
[2023-10-21 14:00] LABS: Add Manual Diff / Slide Review NO; Basophils Absolute Auto 100 /uL (0-100); Basophils Percent Auto 0.7 % (0-2); Eosinophils Absolute Auto 200 /uL (0-450); Eosinophils Percent Auto 2.5 % (2-4); Hematocrit 33.8 % (41-53); Hemoglobin 11.8 g/dL (13.5-17.5); Lymphocytes Absolute Auto 1500 /uL (1100-4500); Lymphocytes Percent Auto 18.2 % (25-40); Mean Corpuscular Hemoglobin 29.2 PG (26-34); Mean Corpuscular Volume 83.4 fL (80-100); Monocytes Absolute Auto 700 /uL (0-900); Monocytes Percent Auto 8.5 % (3-14); Neutrophils Absolute Auto 5800 /uL (1500-7000); Neutrophils Percent Auto 70.1 % (50-75); Platelet Count 379 X10^3/uL (150-400); Red Blood Cell Count 4.05 X10^6/uL (4.5-5.9); Red Cell Distribution Width 13.8 % (11.6-14.8); White Blood Cell Count 8.2 X10^3/uL (4.5-11.0)
--- NOTE | 2023-10-21 14:03 | ED.CHESTPAIN ---
HPI - Chest Pain <Katia Palacios MD - Last Filed: 10/31/23 10:26> General Chief Complaint: Chest Pain Stated Complaint: chest pain kidney failure Time Seen by Provider: 10/21/23 13:32 Source: patient Mode of arrival: Ambulatory Limitations: no limitations History of Present Illness HPI narrative: Patient here with mother. Complains of burning sensation to the chest. He states it feels like ?icy hot? on his chest. He states his spitting up and nausea is not new. This is chronic daily with his acid reflux. No fever chills. No known sick contacts. Patient had dialysis yesterday for 3.5 hours. He has dialysis port on his right chest. Denies denies any pain at the port site. He does not feel that it is infected. Patient denies any shortness of breath or dyspnea. Patient does have chronic dental caries the 2 back once on top left. The front 2 and on the top. And bottom left last molar. No facial swelling. He is scheduled to have teeth pulled. Related Data Home Medications Medication Instructions Recorded Confirmed hydralazine 100 mg tablet 100 mg PO TID 11/24/22 10/19/23 losartan 50 mg tablet 50 mg PO BEDTIME 11/24/22 10/19/23 carvedilol 25 mg tablet 25 mg PO BID 01/18/23 10/19/23 cyclobenzaprine 5 mg tablet 5 mg PO TID PRN 01/18/23 10/19/23 furosemide 80 mg tablet 80 mg PO BID 01/18/23 10/19/23 isosorbide dinitrate 30 mg tablet 30 mg PO BID 01/18/23 10/19/23 sevelamer HCl 800 mg tablet 1,600 mg PO TID 01/18/23 10/19/23 trazodone 50 mg tablet 50 mg PO BEDTIME PRN 01/18/23 10/19/23 felodipine 2.5 mg tablet,extended 2.5 mg PO BID PRN 10/19/23 10/19/23 release 24 hr Previous Rx's Medication Instructions Recorded Glucose: Test Strips #100 ea 01/06/19 spironolactone 100 mg tablet 100 mg PO DAILY #30 tabs 12/06/22 ondansetron 4 mg disintegrating 4 mg PO DAILY PRN nausea and 04/10/23 tablet vomiting #90 tabs insulin glargine 100 unit/mL (3 28 unit (0.28 mL) SUBCUT QPM #15 mL 08/06/23 mL) subcutaneous pen (Basaglar KwikPen U-100 Insulin) B-D PEN NEEDLE #400 ea 08/20/23 insulin aspart U-100 100 unit/mL 5 unit (0.05 mL) SUBCUT TID #15 mL 08/20/23 (3 mL) subcutaneous pen (Novolog FlexPen U-100 Insulin aspart) flash glucose scanning reader #1 ea 08/31/23 (FreeStyle Dilia 2 Hannacroix) escitalopram oxalate 10 mg tablet 5 mg (1/2 x 10 mg) PO DAILY #45 10/01/23 tabs levothyroxine 150 mcg tablet 150 mcg PO QAM #90 tabs 10/08/23 clonidine 0.3 mg/24 hr weekly 1 patch transdermal QWEEK #4 ea 10/09/23 transdermal patch flash glucose sensor (FreeStyle #2 ea 10/19/23 Dilia 2 Sensor kit) pen needle, diabetic 32 gauge x #100 ea 10/19/23 5/32 (BD Ultra-Fine Neelima Pen Needle) omeprazole 20 mg capsule,delayed 20 mg PO DAILY #30 caps 10/22/23 release potassium chloride 10 mEq 10 meq PO DAILY #14 tabs 10/31/23 tablet,extended release(part/cryst) (Klor-Con M) Allergies Allergy/AdvReac Type Severity Reaction Status Date / Time atorvastatin Allergy Mild kidney Verified 10/21/23 13:23 pain apple juice AdvReac Uncoded 10/22/23 10:02 Review of Systems <Katia Palacios MD - Last Filed: 10/31/23 10:26> Review of Systems Narrative: GENERAL: Positive chills, negative fatigue, malaise, fever, sweats. HEENT: negative sinus pain, ear pain, sore throat RESPIRATORY: negative dyspnea, cough CARDIOVASCULAR: Positive chest pain, negative palpitations GASTROINTESTINAL: negative nausea, vomiting, abdominal pain : negative dysuria, frequency, hematuria MUSCULOSKELETAL: negative muscle or bony pain SKIN: negative rash, skin lesions NEUROLOGIC: negative weakness, numbness ROS Unobtainable: All systems reviewed & are unremarkable except as noted in HPI and below Patient History <Katia Palacios MD - Last Filed: 10/31/23 10:26> Medical History Benign essential HTN Breast mass in male Mastodynia of left breast Palpitations Diabetes mellitus type 1 Shingles Sleep apnea Seasonal allergies Post traumatic stress disorder (PTSD) Restless leg syndrome Chronic back pain Chicken pox (~1996) Hearing loss Hypothyroidism (~1995) Depression Anxiety Ankle pain Acne Dental caries Surgical History History of repair of pyloric stenosis Family History Father Age: 55 Cancer Hypertension Social History Smoking Status: Former smoker alcohol intake: current substance use type: marijuana Smoking Status: Former smoker alcohol intake frequency: a few times a week Substance Use Type: marijuana Exam <Katia Palacios MD - Last Filed: 10/31/23 10:26> Narrative Exam Narrative: GENERAL: in no distress, not toxic not dyspneic HEAD: Normocephalic. EYES: Pupils equal round ENT: Mucous membranes moist. NECK: Trachea midline. CARDIOVASCULAR: Regular rate and rhythm, right chest is nontender. No heart murmur, no friction rub. No pain or discomfort with deep breath or cough or movement. RESPIRATORY: Clear to auscultation. Breath sounds equal bilaterally. No wheezes, rales, or rhonchi. GASTROINTESTINAL: Abdomen soft, non-tender EXTREMITIES: No gross deformities. BACK: No flank tenderness. NEURO: AOx4. SKIN: Warm and dry PSYCH: Not anxious, is cooperative Initial Vital Signs Initial Vital Signs: Vital Signs Pulse Rate 72 10/21/23 13:17 Respiratory Rate 11 L 10/21/23 13:17 Pulse Oximetry 100 10/21/23 13:17 <Eri Jesus DO - Last Filed: 10/22/23 13:10> Initial Vital Signs Initial Vital Signs: Vital Signs Pulse Rate 72 10/21/23 13:17 Respiratory Rate 11 L 10/21/23 13:17 Pulse Oximetry 100 10/21/23 13:17 Course <Katia Palacios MD - Last Filed: 10/31/23 10:26> Orders Ordered: Discontinued Medications Ceftriaxone Sodium 2,000 mg/ (Sodium Chloride) 100 mls @ 200 mls/hr IV NOW ONE Stop: 10/21/23 15:42 Last Infusion: 10/21/23 18:20 Dose: Infused Documented By: Admin: 10/21/23 17:35 Dose: 200 mls/hr Documented By: GUY Vancomycin HCl (Vancomycin) 1,250 mg in 250 mls @ 250 mls/hr IV NOW ONE Stop: 10/21/23 17:14 Last Infusion: 10/21/23 20:39 Dose: Infused Documented By: Admin: 10/21/23 18:32 Dose: 250 mls/hr Documented By: GUY Vancomycin HCl (Vancomycin Per Pharmacy) 1 request MISC NOW PRN PRN Reason: Chest Pain Vital Signs Vital signs: Vital Signs - 8 hr 10/22/23 05:30 10/22/23 05:30 10/22/23 06:00 Temperature Pulse Rate 72 Respiratory Rate 13 Blood Pressure 182/87 H 184/90 H Pulse Oximetry 99 Oxygen Delivery Method 10/22/23 06:00 10/22/23 06:30 10/22/23 06:30 Temperature Pulse Rate 72 69 Respiratory Rate 13 13 Blood Pressure 176/86 H Pulse Oximetry 99 98 Oxygen Delivery Method 10/22/23 07:00 10/22/23 07:00 10/22/23 07:30 Temperature Pulse Rate 69 Respiratory Rate 12 Blood Pressure 186/89 H 165/85 H Pulse Oximetry 99 Oxygen Delivery Method 10/22/23 07:30 10/22/23 08:00 10/22/23 08:00 Temperature Pulse Rate 79 69 Respiratory Rate 14 14 Blood Pressure 168/78 H Pulse Oximetry 98 98 Oxygen Delivery Method 10/22/23 08:30 10/22/23 08:30 10/22/23 09:00 Temperature Pulse Rate 72 Respiratory Rate Blood Pressure 172/90 H 180/87 H Pulse Oximetry 99 Oxygen Delivery Method 10/22/23 09:00 10/22/23 09:30 10/22/23 09:30 Temperature Pulse Rate 72 76 Respiratory Rate 15 14 Blood Pressure 159/71 H Pulse Oximetry 99 Oxygen Delivery Method 10/22/23 10:00 10/22/23 10:00 10/22/23 10:23 Temperature 98.6 F Pulse Rate 68 71 Respiratory Rate 12 20 Blood Pressure 168/80 H 168/80 H Pulse Oximetry 100 Oxygen Delivery Method Room Air <Eri Botnick, DO - Last Filed: 10/22/23 13:10> Orders Ordered: Discontinued Medications Ceftriaxone Sodium 2,000 mg/ (Sodium Chloride) 100 mls @ 200 mls/hr IV NOW ONE Stop: 10/21/23 15:42 Last Infusion: 10/21/23 18:20 Dose: Infused Documented By: Admin: 10/21/23 17:35 Dose: 200 mls/hr Documented By: GUY Vancomycin HCl (Vancomycin) 1,250 mg in 250 mls @ 250 mls/hr IV NOW ONE Stop: 10/21/23 17:14 Last Infusion: 10/21/23 20:39 Dose: Infused Documented By: Admin: 10/21/23 18:32 Dose: 250 mls/hr Documented By: GUY Vancomycin HCl (Vancomycin Per Pharmacy) 1 request MISC NOW PRN PRN Reason: Chest Pain Vital Signs Vital signs: Vital Signs - 8 hr 10/22/23 05:30 10/22/23 05:30 10/22/23 06:00 Temperature Pulse Rate 72 Respiratory Rate 13 Blood Pressure 182/87 H 184/90 H Pulse Oximetry 99 Oxygen Delivery Method 10/22/23 06:00 10/22/23 06:30 10/22/23 06:30 Temperature Pulse Rate 72 69 Respiratory Rate 13 13 Blood Pressure 176/86 H Pulse Oximetry 99 98 Oxygen Delivery Method 10/22/23 07:00 10/22/23 07:00 10/22/23 07:30 Temperature Pulse Rate 69 Respiratory Rate 12 Blood Pressure 186/89 H 165/85 H Pulse Oximetry 99 Oxygen Delivery Method 10/22/23 07:30 10/22/23 08:00 10/22/23 08:00 Temperature Pulse Rate 79 69 Respiratory Rate 14 14 Blood Pressure 168/78 H Pulse Oximetry 98 98 Oxygen Delivery Method 10/22/23 08:30 10/22/23 08:30 10/22/23 09:00 Temperature Pulse Rate 72 Respiratory Rate Blood Pressure 172/90 H 180/87 H Pulse Oximetry 99 Oxygen Delivery Method 10/22/23 09:00 10/22/23 09:30 10/22/23 09:30 Temperature Pulse Rate 72 76 Respiratory Rate 15 14 Blood Pressure 159/71 H Pulse Oximetry 99 Oxygen Delivery Method 10/22/23 10:00 10/22/23 10:00 10/22/23 10:23 Temperature 98.6 F Pulse Rate 68 71 Respiratory Rate 12 20 Blood Pressure 168/80 H 168/80 H Pulse Oximetry 100 Oxygen Delivery Method Room Air MDM - Chest Pain <Katia Palacios MD - Last Filed: 10/31/23 10:26> Lab Data 10/21/23 13:52 10/21/23 13:52 Labs: Lab Results 10/21/23 10/21/23 10/21/23 Range/Units 13:52 14:03 14:15 WBC 8.2 (4.5-11.0) X10^3/uL RBC 4.05 L (4.5-5.9) X10^6/uL Hgb 11.8 L (13.5-17.5) g/dL Hct 33.8 L (41-53) % MCV 83.4 (80-100) fL MCH 29.2 (26-34) PG MCHC 35.0 (30-36) % RDW 13.8 (11.6-14.8) % Plt Count 379 (150-400) X10^3/uL Neut % (Auto) 70.1 (50-75) % Lymph % (Auto) 18.2 L (25-40) % [facility] % (Auto) 8.5 (3-14) % Eos % (Auto) 2.5 (2-4) % Baso % (Auto) 0.7 (0-2) % Neut # (Auto) 5800 (1564-5465) /uL Lymph # (Auto) 1500 (8598-4140) /uL [facility] # (Auto) 700 (0-900) /uL Eos # (Auto) 200 (0-450) /uL Baso # (Auto) 100 (0-100) /uL ESR 65 H (0-15) MM/HR Sodium 133 L (137-145) mmol/L Potassium 4.0 (3.4-5.1) mmol/L Chloride 93 L (98-107) mmol/L Carbon Dioxide 30 (22-32) mmol/L BUN 20 (9-20) mg/dL Creatinine 3.82 H (0.66-1.25) mg/dL Estimated GFR 20 L (>60) mL/min BUN/Creatinine Ratio 5.2 L (6-22) Glucose 113 H (70-100) mg/dL Lactate 1.0 (0.7-2.1) mmol/L Calcium 9.9 (8.4-10.2) mg/dL Total Bilirubin 0.9 (0.2-1.3) mg/dL AST 26 (17-59) IU/L ALT 20 (<50) IU/L Alkaline Phosphatase 86 (38-126) U/L Total Creatine Kinase 89 (55-170) U/L Troponin I < 0.012 (0.01-0.034) ng/mL C-Reactive Protein 2.3 H (<1.0) mg/dL Total Protein 8.2 (6.3-8.2) g/dL Albumin 4.4 (3.5-5.0) g/dL Globulin 3.8 (1.7-4.1) g/dL Albumin/Globulin Ratio 1.2 (1.0-2.8) Procalcitonin 0.41 (<0.5) ng/mL Urine Color Yellow Urine Appearance Clear Urine pH 6.0 (4.5-8.0) Ur Specific Alpine 1.015 (1.000-1.035) Urine Protein 2+ H (Negative) Urine Glucose (UA) 2+ H (Negative) g/dL Urine Ketones Negative (NEGATIVE) Urine Occult Blood 1+ H (Negative) Urine Nitrate Negative (Negative) Urine Bilirubin Negative (NEGATIVE) Urine Urobilinogen 0.2 (0.2) E.U./dL Ur Leukocyte Esterase Negative (NEGATIVE) Urine RBC 0-1/hpf (0-5/HPF) Urine WBC 1-5/hpf (0-5/HPF) Ur Squamous Epith Cells None seen (0-5/HPF) Urine Bacteria None seen (None) Ur Culture Indicated? Cult not indicated Chlamy pneumoniae PCR Not detected (Not Detect) Adenovirus (PCR) Not detected (Not Detect) B.parapertussis DNA PCR Not detected (Not Detecte) Coronavirus OC43 (PCR) Not detected (Not Detect) Coronavirus HKU1 (PCR) Not detected (Not Detect) Coronavirus 229E (PCR) Not detected (Not Detect) SARS-CoV-2 (PCR) Not detected (Not Detecte) Coronavirus NL63 (PCR) Not detected (Not Detect) Human Metapneumovir PCR Not detected (Not Detect) Influenza Type A (PCR) Not detected (Not Detect) Influenza Type B (PCR) Not detected (Not Detect) M. pneumoniae (PCR) Not detected (Not Detect) Parainfluenza 1 (PCR) Not detected (Not Detect) Parainfluenza 2 (PCR) Not detected (Not Detect) Parainfluenza 3 (PCR) Not detected (Not Detect) Parainfluenza 4 (PCR) Not detected (Not Detect) RSV (PCR) Not detected (Not Detect) Entero/Rhino (PCR) Not detected (Not Detect) Point of Care Testing Glucose POC 167 Imaging Data Chest x-ray: Radiologist's Impression: [address] [address] XRay Report Signed Patient: Yasmin Bazan MR#: [id number] : 1990 Acct:[id number] Age/Sex: 33 / M Date of Service: 10/21/23 Loc: ED Accession Number: [id number] Procedure: XR chest 1V Ordering Provider: Katia Palacios MD PROCEDURE: XR CHEST 1V INDICATIONS: chest pain TECHNIQUE: One view of the chest was acquired. COMPARISON: [facility], CR, XR CHEST 2V, 04/07/2023, 23:26. [facility], CR, XR CHEST 2V, 10/29/2022, 2:36. FINDINGS: Surgical changes and devices: Of right dialysis catheter terminates in the right atrium. Lungs and pleura: Mildly low lung volumes. No dense consolidation or pleural effusion. Mediastinum: Heart size is at the upper limit of normal. Bones and chest wall: Unremarkable IMPRESSION: Single view radiograph with mildly low lung volumes. No acute abnormality. Dictated by: Jose Ronquillo M.D. on 10/21/2023 at 14:09 Approved by: Jose Ronquillo M.D. on 10/21/2023 at 14:10 [facility] Narrative Medical decision making narrative: Patient here with mother. Complains of burning sensation to the chest. He states it feels like ?icy hot? on his chest. He states his spitting up and nausea is not new. This is chronic daily with his acid reflux. No fever chills. No known sick contacts. Patient had dialysis yesterday for 3.5 hours. He has dialysis port on his right chest. Denies denies any pain at the port site. He does not feel that it is infected. Patient denies any shortness of breath or dyspnea. Patient does have chronic dental caries the 2 back once on top left. The front 2 and on the top. And bottom left last molar. No facial swelling. He is scheduled to have teeth pulled. After history and exam CBC CMP lactic acid procalcitonin ESR CRP EKG chest x-ray respiratory panel [facility] CC: Chest pain Complicating co-morbidities: Dialysis/diabetes Data collected from: Patient and mother Differential considered: Includes but not limited to endocarditis pericarditis myocarditis, pneumonia viral syndrome Exam documented above, pertinent findings include: Nontender chest. Equal lung sounds. No murmur or friction rub Lab Test results independently reviewed as above. Pertinent findings: WBC 8.2 hemoglobin 11.8 Sodium 133 potassium 4.0 BUN 20 creatinine 3.82 Lactate 1.0 troponin less than 0.012 CRP 2.3 procalcitonin 0.41 Viral panel negative Independently reviewed EKG normal sinus rhythm rate 74 prolonged QT Imaging studies independently reviewed: Chest x-ray no acute finding Consultations: Treatments: Vancomycin Rocephin Re-evaluations: 3:44 p.m.. Updated patient and grandmother results. At this time echocardiogram would be optimal for endocarditis evaluation. We do not have available today. We do not have Nephrology. We need to transfer patient that has nephrology services/dialysis. We do not have dialysis here. Discussion: Appropriate for transfer for need of echocardiogram and nephrology services as standby as we do not have dialysis services or nephrology here. Antibiotics have been started. Blood cultures have been obtained. Patient immune compromise., he states his reaction to infections is atypical. Given this, abundance of precaution, will need echocardiogram for evaluation. Diagnosis: Chest pain 6:00 p.m.. Suzanne: Sign out to Dr Dean. Patient here for evaluation for endocarditis. Echocardiogram has been ordered however disposition still would be transfer as possible endocarditis. Echocardiogram would not be done until tomorrow <Eri Jesus DO - Last Filed: 10/22/23 13:10> Lab Data Labs: Lab Results 10/21/23 10/21/23 10/21/23 Range/Units 13:52 14:03 14:15 WBC 8.2 (4.5-11.0) X10^3/uL RBC 4.05 L (4.5-5.9) X10^6/uL Hgb 11.8 L (13.5-17.5) g/dL Hct 33.8 L (41-53) % MCV 83.4 (80-100) fL MCH 29.2 (26-34) PG MCHC 35.0 (30-36) % RDW 13.8 (11.6-14.8) % Plt Count 379 (150-400) X10^3/uL Neut % (Auto) 70.1 (50-75) % Lymph % (Auto) 18.2 L (25-40) % [facility] % (Auto) 8.5 (3-14) % Eos % (Auto) 2.5 (2-4) % Baso % (Auto) 0.7 (0-2) % Neut # (Auto) 5800 (4050-7710) /uL Lymph # (Auto) 1500 (6221-6877) /uL [facility] # (Auto) 700 (0-900) /uL Eos # (Auto) 200 (0-450) /uL Baso # (Auto) 100 (0-100) /uL ESR 65 H (0-15) MM/HR Sodium 133 L (137-145) mmol/L Potassium 4.0 (3.4-5.1) mmol/L Chloride 93 L (98-107) mmol/L Carbon Dioxide 30 (22-32) mmol/L BUN 20 (9-20) mg/dL Creatinine 3.82 H (0.66-1.25) mg/dL Estimated GFR 20 L (>60) mL/min BUN/Creatinine Ratio 5.2 L (6-22) Glucose 113 H (70-100) mg/dL Lactate 1.0 (0.7-2.1) mmol/L Calcium 9.9 (8.4-10.2) mg/dL Total Bilirubin 0.9 (0.2-1.3) mg/dL AST 26 (17-59) IU/L ALT 20 (<50) IU/L Alkaline Phosphatase 86 (38-126) U/L Total Creatine Kinase 89 (55-170) U/L Troponin I < 0.012 (0.01-0.034) ng/mL C-Reactive Protein 2.3 H (<1.0) mg/dL Total Protein 8.2 (6.3-8.2) g/dL Albumin 4.4 (3.5-5.0) g/dL Globulin 3.8 (1.7-4.1) g/dL Albumin/Globulin Ratio 1.2 (1.0-2.8) Procalcitonin 0.41 (<0.5) ng/mL Urine Color Yellow Urine Appearance Clear Urine pH 6.0 (4.5-8.0) Ur Specific Alpine 1.015 (1.000-1.035) Urine Protein 2+ H (Negative) Urine Glucose (UA) 2+ H (Negative) g/dL Urine Ketones Negative (NEGATIVE) Urine Occult Blood 1+ H (Negative) Urine Nitrate Negative (Negative) Urine Bilirubin Negative (NEGATIVE) Urine Urobilinogen 0.2 (0.2) E.U./dL Ur Leukocyte Esterase Negative (NEGATIVE) Urine RBC 0-1/hpf (0-5/HPF) Urine WBC 1-5/hpf (0-5/HPF) Ur Squamous Epith Cells None seen (0-5/HPF) Urine Bacteria None seen (None) Ur Culture Indicated? Cult not indicated Chlamy pneumoniae PCR Not detected (Not Detect) Adenovirus (PCR) Not detected (Not Detect) B.parapertussis DNA PCR Not detected (Not Detecte) Coronavirus OC43 (PCR) Not detected (Not Detect) Coronavirus HKU1 (PCR) Not detected (Not Detect) Coronavirus 229E (PCR) Not detected (Not Detect) SARS-CoV-2 (PCR) Not detected (Not Detecte) Coronavirus NL63 (PCR) Not detected (Not Detect) Human Metapneumovir PCR Not detected (Not Detect) Influenza Type A (PCR) Not detected (Not Detect) Influenza Type B (PCR) Not detected (Not Detect) M. pneumoniae (PCR) Not detected (Not Detect) Parainfluenza 1 (PCR) Not detected (Not Detect) Parainfluenza 2 (PCR) Not detected (Not Detect) Parainfluenza 3 (PCR) Not detected (Not Detect) Parainfluenza 4 (PCR) Not detected (Not Detect) RSV (PCR) Not detected (Not Detect) Entero/Rhino (PCR) Not detected (Not Detect) Point of Care Testing Glucose POC 167 Imaging Data ECHO: Radiologist's Impression: [facility] +---------+ : : [address] : : : : [place] : : : : [id number] : : : : Phone: [phone] Echocardiogram Report + + :Name: YASMIN BAZAN Study Date: 10/22/2023 Height: 67 in : :[facility] ReadingLocation: Weight: 140 lb : : Gender: Male BSA: 1.7 m2 : :: 1990 Age: 33 yrs BP: 172/90 mmHg: :Reason For Study: POSSIBLE ENDOCARDITIS : :Ordering Physician: SUZANNE : :KATIA Performed By: Chantal Matthew : :Referring: KATIA PALACIOS : + + Interpretation Summary Limited study. The left ventricle is normal in size. There is mild concentric left ventricular hypertrophy. The left ventricular ejection fraction is normal. The ejection fraction is estimated to be 60-65%. No significant change from the previous study. The right ventricle is normal in size and function. Catheter like structure seen in the right atrium. Correlate clinically. If patient has a central line, consider pulling back to the superior vena cava. Not seen in previous echocardiogram. Mild aortic regurgitation. Previously trace. No obvious vegetation seen. The IVC is of normal diameter and collapses greater than 50% with a sniff. This suggests a low right atrial pressure of 3 mm Hg. Procedure: A two-dimensional transthoracic echocardiogram with color flow Doppler was performed. The study quality was technically adequate. Comparison is made with the echocardiogram of 08/17/2022. The patient was in sinus rhythm with heart rates between 71-76 bpm during the exam. Left Ventricle: The left ventricle is normal in size. There is mild concentric left ventricular hypertrophy. The ejection fraction is estimated to be 60-65%. The left ventricular ejection fraction is normal. There has been no significant change since the previous exam. There are no focal wall motion abnormalities. Right Ventricle: The right ventricle is normal in size and function. Atria: Catheter like structure seen in the right atrium. Correlate clinically. If patient has a central line, consider pulling back to the superior vena cava. Not seen in previous echocardiogram. Mitral Valve: The mitral valve is normal in structure and function. There is trace mitral regurgitation. Aortic Valve: The aortic valve is trileaflet. The aortic valve opens well. There is mild aortic regurgitation. Tricuspid Valve: The tricuspid valve is normal in structure and function. There is trace tricuspid regurgitation. Pulmonic Valve: The pulmonic valve is not well seen, but is grossly normal. There is no pulmonic valvular regurgitation. Great Vessels: The IVC is of normal diameter and collapses greater than 50% with a sniff. This suggests a low right atrial pressure of 3 mm Hg. Pericardium/ Pleura There is no pericardial effusion. There is no pleural effusion. MMode/2D Measurements & Calculations LVIDd: 4.4 cm IVC diam: 1.2 cm LVIDs: 3.0 cm FS: 31.3 % IVSd: 1.1 cm LVPWd: 1.2 cm LV velasco. diameter/BSA (cm/m^2): 2.5 LV sys. diameter/BSA (cm/m^2): 1.7 MDM Narrative Medical decision making narrative: Patient here with mother. Complains of burning sensation to the chest. He states it feels like ?icy hot? on his chest. He states his spitting up and nausea is not new. This is chronic daily with his acid reflux. No fever chills. No known sick contacts. Patient had dialysis yesterday for 3.5 hours. He has dialysis port on his right chest. Denies denies any pain at the port site. He does not feel that it is infected. Patient denies any shortness of breath or dyspnea. Patient does have chronic dental caries the 2 back once on top left. The front 2 and on the top. And bottom left last molar. No facial swelling. He is scheduled to have teeth pulled. After history and exam CBC CMP lactic acid procalcitonin ESR CRP EKG chest x-ray respiratory panel [facility] CC: Chest pain Complicating co-morbidities: Dialysis/diabetes Data collected from: Patient and mother Differential considered: Includes but not limited to endocarditis pericarditis myocarditis, pneumonia viral syndrome Exam documented above, pertinent findings include: Nontender chest. Equal lung sounds. No murmur or friction rub Lab Test results independently reviewed as above. Pertinent findings: WBC 8.2 hemoglobin 11.8 Sodium 133 potassium 4.0 BUN 20 creatinine 3.82 Lactate 1.0 troponin less than 0.012 CRP 2.3 procalcitonin 0.41 Viral panel negative Independently reviewed EKG normal sinus rhythm rate 74 prolonged QT Imaging studies independently reviewed: Chest x-ray no acute finding Consultations: Treatments: Vancomycin Rocephin Re-evaluations: 3:44 p.m.. Updated patient and grandmother results. At this time echocardiogram would be optimal for endocarditis evaluation. We do not have available today. We do not have Nephrology. We need to transfer patient that has nephrology services/dialysis. We do not have dialysis here. Discussion: Appropriate for transfer for need of echocardiogram and nephrology services as standby as we do not have dialysis services or nephrology here. Antibiotics have been started. Blood cultures have been obtained. Patient immune compromise., he states his reaction to infections is atypical. Given this, abundance of precaution, will need echocardiogram for evaluation. Diagnosis: Chest pain 6:00 p.m.. Suzanne: Sign out to Dr Dean. Patient here for evaluation for endocarditis. Echocardiogram has been ordered however disposition still would be transfer as possible endocarditis. Echocardiogram would not be done until tomorrow 10/22/[address] Jesus-[place] received sign-out from Dr. Dean. Son evaluated patient myself. Sleeping arousable. He reports that he felt burning all around his chest called it ?icy hot. He has not currently on antibiotics for any sort of dental infection he denies any dental pain he has no facial swelling. He actually sees a dentist tomorrow but this does not seem to be his complaint today. Vitals are stable he is without fever I do not appreciate murmur on exam no evidence of shortness of breath. A echocardiogram does not show any evidence of endocarditis or wall motion abnormality. No need for transfer or admission. Patient can follow-up and continue antibiotics for his dental issues. He has no longer having any sort of chest pain. At this time no need for any further inpatient workup. Encourage outpatient stress test. He did describe his chest pain to me as burning he has chronic acid reflux he vomits about a week with it. Discharge Plan Departure Patient Disposition: Home Clinical Impression: Atypical chest pain Instructions: DI for Atypical Chest Pain Activity Restrictions/Additional Instructions: *You have been diagnosed with atypical chest pain *What to do: At this time your echocardiogram was within normal limits. There is no evidence of any sort of infection in your heart or abnormality. Please talk with your primary care provider about possible stress test. *Continue to take medications as directed Omeprazole 20 mg once daily --> SAFEWAY [place]ort[place] Stop pepcid *Follow up with your primary care provider in 2-3 days or call [phone] *Return to ER if you should have increasing chest pain shortness of breath or any new, worsening or concerning symptoms Prescriptions: New omeprazole 20 mg capsule,delayed release(DR/EC) 20 mg PO DAILY Qty: 30 0RF No Action escitalopram oxalate 10 mg tablet 5 mg PO DAILY Qty: 45 3RF (DME) Glucose: Test Strips 0 .Route .MEDSUPPLY Qty: 100 11RF Dose Instruction: As directed Rx Instructions: Test blood sugars up to 3 times daily ondansetron 4 mg tablet,disintegrating 4 mg PO DAILY PRN (Reason: nausea and vomiting) Qty: 90 0RF insulin glargine [Basaglar KwikPen U-100 Insulin] 100 unit/mL (3 mL) insulin pen 28 unit SUBCUT QPM Qty: 15 3RF (DME) FreeStyle Dilia 2 [place] Misc See Rx Instructions .Route Qty: 1 4RF Rx Instructions: Use to continuously monitor blood sugars levothyroxine 150 mcg tablet 150 mcg PO QAM Qty: 90 3RF clonidine 0.3 mg/24 hr patch weekly 1 patch transdermal QWEEK Qty: 4 0RF losartan 50 mg tablet 50 mg PO BEDTIME Patient Comments: TAKE ONE TABLET BY MOUTH NIGHTLY AT BEDTIME hydralazine 100 mg tablet 100 mg PO TID Hold Instructions: Patient insists on once daily dosing Patient Comments: TAKE ONE TABLET BY MOUTH THREE TIMES DAILY spironolactone 100 mg tablet 100 mg PO DAILY Qty: 30 0RF carvedilol 25 mg tablet 25 mg PO BID Rx Instructions: must administer with a meal/food cyclobenzaprine 5 mg tablet 5 mg PO TID PRN furosemide 80 mg tablet 80 mg PO BID isosorbide dinitrate 30 mg tablet 30 mg PO BID Rx Instructions: allow nitrate-free interval of 12-14 hrs per 24-hr period sevelamer HCl 800 mg tablet 1,600 mg PO TID Rx Instructions: must administer with a meal/food trazodone 50 mg tablet 50 mg PO BEDTIME PRN insulin aspart U-100 [Novolog FlexPen U-100 Insulin] 100 unit/mL (3 mL) insulin pen 5 unit SUBCUT TID Qty: 15 11RF Rx Instructions: before meals (DME) B-D PEN NEEDLE 8MM Qty: 400 11RF Dose Instruction: As directed Rx Instructions: TO ADMINISTER INSULIN UP TO 4 TIMES A DAY felodipine 2.5 mg tablet extended release 24 hr 2.5 mg PO BID PRN (DME) FreeStyle Dilia 2 Sensor Kit See Rx Instructions .Route Qty: 2 11RF Rx Instructions: Use to continuously monitor blood sugars (DME) pen needle, diabetic [BD Ultra-Fine Neelima Pen Needle] 32 gauge x 5/32 needle See Rx Instructions .ROUTE .MEDSUPPLY Qty: 100 4RF Rx Instructions: to adminster insulin four times daily potassium chloride [Klor-Con M10] 10 mEq tablet,ER particles/crystals 10 meq PO DAILY Qty: 14 0RF Referrals: Juaquin Moreland DO [Primary Care Provider] - Stand Alone Forms: Patient Portal/API
[2023-10-21 14:13] LABS: Alanine Aminotransferase 20 IU/L (<50); Albumin 4.4 g/dL (3.5-5.0); Albumin Globulin Ratio 1.2 (1.0-2.8); Alkaline Phosphatase 86 U/L (38-126); Aspartate Aminotransferase 26 IU/L (17-59); BUN Creatinine Ratio 5.2 (6-22); Bilirubin Total 0.9 mg/dL (0.2-1.3); Blood Urea Nitrogen 20 mg/dL (9-20); C-Reactive Protein Quant 2.3 mg/dL (<1.0); Calcium 9.9 mg/dL (8.4-10.2); Carbon Dioxide 30 mmol/L (22-32); Chloride 93 mmol/L (98-107); Estimated Glomerular Filt Rate 20 mL/min (>60); Globulin 3.8 g/dL (1.7-4.1); Glucose 113 mg/dL (70-100); HEMOLYSIS < 15 (0-50); Sodium 133 mmol/L (137-145); Total Protein 8.2 g/dL (6.3-8.2)
[2023-10-21 14:20] LABS: Creatine Kinase 89 U/L (55-170)
[2023-10-21 14:21] LABS: Erythrocyte Sedimentation Rate 65 MM/HR (0-15)
[2023-10-21 14:23] LABS: Appearance Urine UA CLEAR; Bilirubin Urine UA NEGATIVE (NEGATIVE); Color Urine UA YELLOW; Glucose Urine UA 2+ g/dL (Negative); Ketones Urine UA NEGATIVE (NEGATIVE); Leukocyte Esterase Urine UA NEGATIVE (NEGATIVE); Nitrite Urine UA NEGATIVE (Negative); Occult Blood Urine UA 1+ (Negative); Protein Urine UA 2+ (Negative); Specific Gravity Urine UA 1.015 (1.000-1.035); Urobilinogen Urine UA 0.2 E.U./dL (0.2)
[2023-10-21 14:27] LABS: Procalcitonin 0.41 ng/mL (<0.5)
[2023-10-21 14:31] LABS: Bacteria Urine None Seen; Culture Indicated Urine Cult Not Indicated; RBC Urine 0-1/HPF (0-5/HPF); Squamous Epithelial Cell Urine None Seen (0-5/HPF); WBC Urine 1-5/HPF (0-5/HPF)
[2023-10-21 14:33] LABS: Troponin I < 0.012 ng/mL (0.01-0.034)
--- NOTE | 2023-10-21 14:49 | PC.NURSE ---
Pt complains of difficulty breathing, feeling hot, and feeling worse. CBG stick reads 52, Dr. Bhat notified and patient given 3x orange juice, each is 13g carbs. Pt provided with peanut butter on saltines and states it is too much at this time, just orange juice please
[2023-10-21 14:59] LABS: Adenovirus Not Detected (Not Detect); B. parapertussis Not Detected (Not Detecte); Bordetella pertussis Not Detected (Not Detect); Chlamydophila pneumoniae Not Detected (Not Detect); Coronavirus 229E Not Detected (Not Detect); Coronavirus HKU1 Not Detected (Not Detect); Coronavirus NL 63 Not Detected (Not Detect); Coronavirus OC43 Not Detected (Not Detect); Human Metapneumovirus Not Detected (Not Detect); Human Rhinovirus/Enterovirus Not Detected (Not Detect); Influenza A Not Detected (Not Detect); Influenza B Not Detected (Not Detect); Mycoplasma pneumoniae Not Detected (Not Detect); Parainfluenza Virus 1 Not Detected (Not Detect); Parainfluenza Virus 2 Not Detected (Not Detect); Parainfluenza Virus 3 Not Detected (Not Detect); Parainfluenza Virus 4 Not Detected (Not Detect); Respiratory Syncytial Virus Not Detected (Not Detect); SARS- CoV-2 Not Detected (Not Detecte)
--- NOTE | 2023-10-21 15:00 | PC.NURSE ---
Pt had a total of 4x orange juice containers and 2x saltines with peanut butter smeared on them. Pt states he is feeling better and can breath easier. Pt denies pain. His family member brought his cgm monitor which is now charging at the ER nurse station.
--- NOTE | 2023-10-21 15:31 | PC.NURSE ---
Pt states not feeling well since this morning with SOB and difficulty breathing. Pt's ox sat 99-100% on room air, breath sounds clear bilaterally. BG dropped to 52 and patient became SOB, diaphoretic, weak. Pt drank 4x orange juice in ER and BG increasing, see POC documentation.
[2023-10-21] MEDS: cefTRIAXone 2,000 MG in SODIUM CHLORIDE 0.9% 100 ML 200 MG IV (17:35)
--- NOTE | 2023-10-21 18:27 | DI.ECHO.S_ITS ---
[facility]---------+ [facility] +---------+ : : [address] : : : : [id number] : : : : Phone: [phone]+ Echocardiogram Report + + :Name: YASMIN SMALLWOOD Study Date: 10/22/2023 Height: 67 in : :[facility] ReadingLocation: Weight: 140 lb : : Gender: Male BSA: 1.7 m2 : :: 1990 Age: 33 yrs BP: 172/90 mmHg: :Reason For Study: POSSIBLE ENDOCARDITIS : :Ordering Physician: SUZANNE, : :KATIA Performed By: Chantal Matthew : :Referring: KATIA PALACIOS : + + Interpretation Summary Limited study. The left ventricle is normal in size. There is mild concentric left ventricular hypertrophy. The left ventricular ejection fraction is normal. The ejection fraction is estimated to be 60-65%. No significant change from the previous study. The right ventricle is normal in size and function. Catheter like structure seen in the right atrium. Correlate clinically. If patient has a central line, consider pulling back to the superior vena cava. Not seen in previous echocardiogram. Mild aortic regurgitation. Previously trace. No obvious vegetation seen. The IVC is of normal diameter and collapses greater than 50% with a sniff. This suggests a low right atrial pressure of 3 mm Hg. Procedure: A two-dimensional transthoracic echocardiogram with color flow Doppler was performed. The study quality was technically adequate. Comparison is made with the echocardiogram of 08/17/2022. The patient was in sinus rhythm with heart rates between 71-76 bpm during the exam. Left Ventricle: The left ventricle is normal in size. There is mild concentric left ventricular hypertrophy. The ejection fraction is estimated to be 60-65%. The left ventricular ejection fraction is normal. There has been no significant change since the previous exam. There are no focal wall motion abnormalities. Right Ventricle: The right ventricle is normal in size and function. Atria: Catheter like structure seen in the right atrium. Correlate clinically. If patient has a central line, consider pulling back to the superior vena cava. Not seen in previous echocardiogram. Mitral Valve: The mitral valve is normal in structure and function. There is trace mitral regurgitation. Aortic Valve: The aortic valve is trileaflet. The aortic valve opens well. There is mild aortic regurgitation. Tricuspid Valve: The tricuspid valve is normal in structure and function. There is trace tricuspid regurgitation. Pulmonic Valve: The pulmonic valve is not well seen, but is grossly normal. There is no pulmonic valvular regurgitation. Great Vessels: The IVC is of normal diameter and collapses greater than 50% with a sniff. This suggests a low right atrial pressure of 3 mm Hg. Pericardium/ Pleura There is no pericardial effusion. There is no pleural effusion. MMode/2D Measurements & Calculations LVIDd: 4.4 cm IVC diam: 1.2 cm LVIDs: 3.0 cm FS: 31.3 % IVSd: 1.1 cm LVPWd: 1.2 cm LV velasco. diameter/BSA (cm/m^2): 2.5 LV sys. diameter/BSA (cm/m^2): 1.7 Reading Physician:09:54 AM
[2023-10-21] MEDS: VANCOMYCIN 1,250 MG/250 ML PIGGYBACK 250 MG IV (18:32)
[2023-10-22] VITALS (22 sets, daily range): BP systolic 141–186; BP diastolic 71–90; PULSE 68–82; RESP 11–20; TEMP 36.3–37; O2SAT 97–100
--- NOTE | 2023-10-22 08:28 | PC.NURSE ---
Pt laying in bed at this time and a&ox4. Denies any pain & n/v. Pt states that he is comfortable and would like to continue to sleep for a little while longer. 200mL of clear, yellow urine out in the urinal.
--- NOTE | 2023-10-22 09:11 | PC.NURSE ---
Pt checked BG with personal monitor.
--- NOTE | 2023-10-22 09:34 | PC.NURSE ---
Pt reports that he has been taking all of his own home medications and insulin. Pt continues to monitor BG on his own and states that he if needs to correct BG he will inform us. Dr Jesus aware.
== END 2023-10-22 10:26 | disposition home or self-care (01) ==
PROVIDERS: Emergency Medicine; Emergency Provider Emergency Medicine; PCP Family Medicine
DX: R07.89 Other chest pain (principal); E10.9 Type 1 diabetes mellitus without complications; Z79.899 Other long term (current) drug therapy; Z20.822 Contact with and (suspected) exposure to COVID-19
CPT/HCPCS: 36415; 71045; 80053; 81001; 82550; 82962; 83605; 84145; 84484; 85025; 85651; 86140; 87040; 87633; 93005; 93307; 96365; 96366; 96367; 99284; J0696

== ENCOUNTER 2023-10-30 23:23 | Emergency (ER) | payer MEDICARE, MEDICAID, SELFPAY ==
--- NOTE | 2023-10-30 23:27 | DI.RAD.S_ITS ---
PROCEDURE: XR CHEST 1V INDICATIONS: SOB TECHNIQUE: One view of the chest was acquired. COMPARISON: [facility], CR, XR CHEST 1V, 10/21/2023, 13:50. [facility], CR, XR CHEST 2V, 04/07/2023, 23:26. FINDINGS: Surgical changes and devices: A right central line terminates in the lower SVC. Lungs and pleura: No dense consolidation or pleural effusion. Mediastinum: Normal heart size Bones and chest wall: No suspicious findings. IMPRESSION: No acute radiographic abnormality on this single view study. Dictated by: Jose Ronquillo M.D. on 10/31/2023 at 0:40 Approved by: Jose Ronquillo M.D. on 10/31/2023 at 0:40
[2023-10-30 23:32] VITALS: PULSE 82; O2SAT 100
[2023-10-30 23:39] VITALS: BP 214/105; PULSE 76; RESP 16; TEMP 36.9; O2SAT 100; BMI 21.4
[2023-10-31] VITALS: PULSE 80
[2023-10-31 00:13] VITALS: BP 188/91; PULSE 70; RESP 12
[2023-10-31 00:23] LABS: Add Manual Diff / Slide Review NO; Basophils Absolute Auto 100 /uL (0-100); Basophils Percent Auto 1.2 % (0-2); Eosinophils Absolute Auto 300 /uL (0-450); Eosinophils Percent Auto 3.8 % (2-4); Hematocrit 32.7 % (41-53); Hemoglobin 11.6 g/dL (13.5-17.5); Lymphocytes Absolute Auto 2100 /uL (1100-4500); Lymphocytes Percent Auto 28.5 % (25-40); Mean Corpuscular HGB Conc 35.6 % (30-36); Mean Corpuscular Hemoglobin 29.9 PG (26-34); Monocytes Absolute Auto 500 /uL (0-900); Monocytes Percent Auto 6.4 % (3-14); Neutrophils Absolute Auto 4500 /uL (1500-7000); Neutrophils Percent Auto 60.1 % (50-75); Platelet Count 323 X10^3/uL (150-400); Red Blood Cell Count 3.89 X10^6/uL (4.5-5.9); Red Cell Distribution Width 14.2 % (11.6-14.8); White Blood Cell Count 7.4 X10^3/uL (4.5-11.0)
[2023-10-31 00:30] VITALS: BP 161/82; PULSE 65; RESP 13; O2SAT 98
[2023-10-31 00:35] LABS: Alanine Aminotransferase 21 IU/L (<50); Albumin 4.1 g/dL (3.5-5.0); Albumin Globulin Ratio 1.1 (1.0-2.8); Alkaline Phosphatase 80 U/L (38-126); Aspartate Aminotransferase 28 IU/L (17-59); BUN Creatinine Ratio 4.9 (6-22); Bilirubin Total 0.7 mg/dL (0.2-1.3); Blood Urea Nitrogen 13 mg/dL (9-20); Calcium 8.8 mg/dL (8.4-10.2); Carbon Dioxide 28 mmol/L (22-32); Chloride 94 mmol/L (98-107); Creatine Kinase 55 U/L (55-170); Estimated Glomerular Filt Rate 32 mL/min (>60); Globulin 3.6 g/dL (1.7-4.1); Glucose 99 mg/dL (70-100); HEMOLYSIS < 15 (0-50); Lipase 34 U/L (23-300); Sodium 133 mmol/L (137-145); Total Protein 7.7 g/dL (6.3-8.2)
[2023-10-31 00:42] LABS: Potassium 2.6 mmol/L (3.4-5.1)
[2023-10-31 00:47] LABS: Troponin I 0.013 ng/mL (0.01-0.034)
[2023-10-31 01:00] VITALS: BP 171/86; PULSE 69; RESP 13; O2SAT 99
--- NOTE | 2023-10-31 01:07 | ED.CHESTPAIN ---
HPI - Chest Pain General Chief Complaint: Chest Pain Stated Complaint: chest tightness, lightheaded, dialysis Time Seen by Provider: 10/30/23 23:26 Source: patient Mode of arrival: Ambulatory Limitations: no limitations History of Present Illness HPI narrative: Patient is a 33-year-old male. He is on dialysis. Had a full dialysis treatment today. After dialysis stated that he had a episode of lightheadedness and chest tightness. He was also hypertensive at the time. He then took his antihypertensive medication and since that time his symptoms have either gradually improved or resolved. At the time of my evaluation he states he is feeling much better. No palpitations. No nausea vomiting. He did have blood work drawn today at the dialysis center. Next dialysis treatment is on . Related Data Home Medications Medication Instructions Recorded Confirmed hydralazine 100 mg tablet 100 mg PO TID 11/24/22 10/19/23 losartan 50 mg tablet 50 mg PO BEDTIME 11/24/22 10/19/23 carvedilol 25 mg tablet 25 mg PO BID 01/18/23 10/19/23 cyclobenzaprine 5 mg tablet 5 mg PO TID PRN 01/18/23 10/19/23 furosemide 80 mg tablet 80 mg PO BID 01/18/23 10/19/23 isosorbide dinitrate 30 mg tablet 30 mg PO BID 01/18/23 10/19/23 sevelamer HCl 800 mg tablet 1,600 mg PO TID 01/18/23 10/19/23 trazodone 50 mg tablet 50 mg PO BEDTIME PRN 01/18/23 10/19/23 felodipine 2.5 mg tablet,extended 2.5 mg PO BID PRN 10/19/23 10/19/23 release 24 hr Previous Rx's Medication Instructions Recorded Glucose: Test Strips #100 ea 01/06/19 spironolactone 100 mg tablet 100 mg PO DAILY #30 tabs 12/06/22 ondansetron 4 mg disintegrating 4 mg PO DAILY PRN nausea and 04/10/23 tablet vomiting #90 tabs insulin glargine 100 unit/mL (3 28 unit (0.28 mL) SUBCUT QPM #15 mL 08/06/23 mL) subcutaneous pen (Basaglar KwikPen U-100 Insulin) B-D PEN NEEDLE #400 ea 08/20/23 insulin aspart U-100 100 unit/mL 5 unit (0.05 mL) SUBCUT TID #15 mL 08/20/23 (3 mL) subcutaneous pen (Novolog FlexPen U-100 Insulin aspart) flash glucose scanning reader #1 ea 08/31/23 (FreeStyle Dilia 2 [place]) escitalopram oxalate 10 mg tablet 5 mg (1/2 x 10 mg) PO DAILY #45 10/01/23 tabs levothyroxine 150 mcg tablet 150 mcg PO QAM #90 tabs 10/08/23 clonidine 0.3 mg/24 hr weekly 1 patch transdermal QWEEK #4 ea 10/09/23 transdermal patch flash glucose sensor (FreeStyle #2 ea 10/19/23 Dilia 2 Sensor kit) pen needle, diabetic 32 gauge x #100 ea 10/19/23 (BD Ultra-Fine Neelima Pen Needle) omeprazole 20 mg capsule,delayed 20 mg PO DAILY #30 caps 10/22/23 release potassium chloride 10 mEq 10 meq PO DAILY #14 tabs 10/31/23 tablet,extended release(part/cryst) (Klor-Con M) Allergies Allergy/AdvReac Type Severity Reaction Status Date / Time atorvastatin Allergy Mild kidney Verified 10/21/23 13:23 pain apple juice AdvReac Uncoded 10/22/23 10:02 Review of Systems Constitutional Constitutional: Reports system reviewed and no additional complaints, except as documented Cardiovascular Cardiovascular: Reports system reviewed and no additional complaints, except as documented Respiratory Respiratory: Reports system reviewed and no additional complaints, except as documented Gastrointestinal Gastrointestinal: Reports system reviewed and no additional complaints, except as documented Integumentary/Breasts Skin/Breast: Reports system reviewed and no additional complaints, except as documented Neurologic Neurologic: Reports system reviewed and no additional complaints, except as documented Patient History Medical History Benign essential HTN Breast mass in male Mastodynia of left breast Palpitations Diabetes mellitus type 1 Shingles Sleep apnea Seasonal allergies Post traumatic stress disorder (PTSD) Restless leg syndrome Chronic back pain Chicken pox (~1996) Hearing loss Hypothyroidism (~1995) Depression Anxiety Ankle pain Acne Dental caries Surgical History History of repair of pyloric stenosis Family History Father Age: 55 Cancer Hypertension Social History Smoking Status: Former smoker alcohol intake: current substance use type: marijuana Smoking Status: Former smoker alcohol intake frequency: a few times a week Substance Use Type: marijuana Exam Initial Vital Signs Initial Vital Signs: Vital Signs Pulse Rate 82 10/30/23 23:32 Pulse Oximetry 100 10/30/23 23:32 Oxygen Delivery Method Room Air 10/30/23 23:32 Const General: cooperative HENMT Head: normal to inspection and normocephalic Chest Other: Dialysis ports right upper chest Resp Effort & Inspection: normal respiratory effort Cardio Rate: regular rate Skin General: no rashes or lesions noted Neuro General: patient alert, patient awake and moves all extremities Extrem General: capillary refill normal Course Orders Ordered: ED Orders 10/30/23 23:27 XR chest 1V Stat Complete Blood Count AUTO DIFF Stat Comprehensive Metabolic Panel Stat Lipase Stat Troponin & CK Cardiac Panel Stat EKG-12 Lead Stat Vital Signs Vital signs: Vital Signs - 8 hr 10/30/23 23:32 10/30/23 23:39 10/31/23 00:00 Temperature 98.4 F Pulse Rate 82 76 80 Respiratory Rate 16 Blood Pressure 214/105 H Pulse Oximetry 100 100 Oxygen Delivery Method Room Air Room Air 10/31/23 00:13 10/31/23 00:13 10/31/23 00:30 Temperature Pulse Rate 70 65 Respiratory Rate 12 13 Blood Pressure 188/91 H Pulse Oximetry 98 Oxygen Delivery Method Room Air 10/31/23 00:30 10/31/23 01:00 10/31/23 01:00 Temperature Pulse Rate 69 Respiratory Rate 13 Blood Pressure 161/82 H 171/86 H Pulse Oximetry 99 Oxygen Delivery Method Room Air MDM - Chest Pain Lab Data Attestation: I reviewed the patient's lab results. 10/31/23 00:10 10/31/23 00:10 Labs: Lab Results 10/31/23 Range/Units 00:10 WBC 7.4 (4.5-11.0) X10^3/uL RBC 3.89 L (4.5-5.9) X10^6/uL Hgb 11.6 L (13.5-17.5) g/dL Hct 32.7 L (41-53) % MCV 84.0 (80-100) fL MCH 29.9 (26-34) PG MCHC 35.6 (30-36) % RDW 14.2 (11.6-14.8) % Plt Count 323 (150-400) X10^3/uL Neut % (Auto) 60.1 (50-75) % Lymph % (Auto) 28.5 (25-40) % Wolfe % (Auto) 6.4 (3-14) % Eos % (Auto) 3.8 (2-4) % Baso % (Auto) 1.2 (0-2) % Neut # (Auto) 4500 (1777-8592) /uL Lymph # (Auto) 2100 (6656-4228) /uL Wolfe # (Auto) 500 (0-900) /uL Eos # (Auto) 300 (0-450) /uL Baso # (Auto) 100 (0-100) /uL Sodium 133 L (137-145) mmol/L Potassium 2.6 L* D (3.4-5.1) mmol/L Chloride 94 L (98-107) mmol/L Carbon Dioxide 28 (22-32) mmol/L BUN 13 (9-20) mg/dL Creatinine 2.63 H (0.66-1.25) mg/dL Estimated GFR 32 L (>60) mL/min BUN/Creatinine Ratio 4.9 L (6-22) Glucose 99 (70-100) mg/dL Calcium 8.8 (8.4-10.2) mg/dL Total Bilirubin 0.7 (0.2-1.3) mg/dL AST 28 (17-59) IU/L ALT 21 (<50) IU/L Alkaline Phosphatase 80 (38-126) U/L Total Creatine Kinase 55 (55-170) U/L Troponin I 0.013 (0.01-0.034) ng/mL Total Protein 7.7 (6.3-8.2) g/dL Albumin 4.1 (3.5-5.0) g/dL Globulin 3.6 (1.7-4.1) g/dL Albumin/Globulin Ratio 1.1 (1.0-2.8) Lipase 34 (23-300) U/L Imaging Data Chest x-ray: Radiologist's Impression: PROCEDURE: XR CHEST 1V INDICATIONS: SOB TECHNIQUE: One view of the chest was acquired. COMPARISON: [facility], CR, XR CHEST 1V, 10/21/2023, 13:50. [facility], CR, XR CHEST 2V, 04/07/2023, 23:26. FINDINGS: Surgical changes and devices: A right central line terminates in the lower SVC. Lungs and pleura: No dense consolidation or pleural effusion. Mediastinum: Normal heart size Bones and chest wall: No suspicious findings. IMPRESSION: No acute radiographic abnormality on this single view study. ECG Data Attestation: I personally reviewed and interpreted this ECG as follows: Interpretation: Sinus rhythm Ventricular rate is 72 Normal axis Normal QRS Nonspecific ST T wave changes MDM Narrative Medical decision making narrative: Patient states he is feeling much better now that he is taken his blood pressure medicines. His blood pressure has improved. Patient is hypokalemic. I feel that this is a incidental finding and not related to what brought him into the emergency department today. I had a long discussion regarding this to him. Patient is very well in tune with his electrolytes in his dialysis. He is concerned that if we give him potassium today that we potentially would give him too much before his next dialysis treatment. He is also concerned that because they tami blood today at the dialysis center that if we change his electrolytes by giving him potassium today that that would interfere with the adjustments that they would make to his dialysis treatments. We discussed potassium in the concerned that we have regarding it being low. Plan will be is to give him a prescription for potassium. He was going to contact his pairer odds when the office is open later today to decide whether or not he should take the potassium or wait until his next dialysis treatment. Know that his blood pressures improved he is feeling better. No indication to change any of his medications. Suspicion for acute ACS. Discharge patient home with above instructions he expressed understanding and agreement with the plan. Discharge Plan Departure Patient Disposition: Home Clinical Impression: Hypertension, Hypokalemia Instructions: High Blood Pressure Activity Restrictions/Additional Instructions: Your potassium was somewhat low today. I recommend that when the office is open later today that you call them and talk about your potassium level. You are given a prescription for oral potassium and if they would like you to take some then you can fill this prescription and take it as they direct. Keep all of your scheduled medical appointments. Return to the emergency department for new or worsening symptoms. Prescriptions: New potassium chloride [Klor-Con M10] 10 mEq tablet,ER particles/crystals 10 meq PO DAILY Qty: 14 0RF No Action escitalopram oxalate 10 mg tablet 5 mg PO DAILY Qty: 45 3RF (DME) Glucose: Test Strips 0 .Route .MEDSUPPLY Qty: 100 11RF Dose Instruction: As directed Rx Instructions: Test blood sugars up to 3 times daily ondansetron 4 mg tablet,disintegrating 4 mg PO DAILY PRN (Reason: nausea and vomiting) Qty: 90 0RF insulin glargine [Basaglar KwikPen U-100 Insulin] 100 unit/mL (3 mL) insulin pen 28 unit SUBCUT QPM Qty: 15 3RF (DME) FreeStyle Dilia 2 [place] Misc See Rx Instructions .Route Qty: 1 4RF Rx Instructions: Use to continuously monitor blood sugars levothyroxine 150 mcg tablet 150 mcg PO QAM Qty: 90 3RF clonidine 0.3 mg/24 hr patch weekly 1 patch transdermal QWEEK Qty: 4 0RF losartan 50 mg tablet 50 mg PO BEDTIME Patient Comments: TAKE ONE TABLET BY MOUTH NIGHTLY AT BEDTIME hydralazine 100 mg tablet 100 mg PO TID Hold Instructions: Patient insists on once daily dosing Patient Comments: TAKE ONE TABLET BY MOUTH THREE TIMES DAILY spironolactone 100 mg tablet 100 mg PO DAILY Qty: 30 0RF carvedilol 25 mg tablet 25 mg PO BID Rx Instructions: must administer with a meal/food cyclobenzaprine 5 mg tablet 5 mg PO TID PRN furosemide 80 mg tablet 80 mg PO BID isosorbide dinitrate 30 mg tablet 30 mg PO BID Rx Instructions: allow nitrate-free interval of 12-14 hrs per 24-hr period sevelamer HCl 800 mg tablet 1,600 mg PO TID Rx Instructions: must administer with a meal/food trazodone 50 mg tablet 50 mg PO BEDTIME PRN insulin aspart U-100 [Novolog FlexPen U-100 Insulin] 100 unit/mL (3 mL) insulin pen 5 unit SUBCUT TID Qty: 15 11RF Rx Instructions: before meals (DME) B-D PEN NEEDLE 8MM Qty: 400 11RF Dose Instruction: As directed Rx Instructions: TO ADMINISTER INSULIN UP TO 4 TIMES A DAY felodipine 2.5 mg tablet extended release 24 hr 2.5 mg PO BID PRN (DME) FreeStyle Dilia 2 Sensor Kit See Rx Instructions .Route Qty: 2 11RF Rx Instructions: Use to continuously monitor blood sugars (DME) pen needle, diabetic [BD Ultra-Fine Neelima Pen Needle] 32 gauge x 5/32 needle See Rx Instructions .ROUTE .MEDSUPPLY Qty: 100 4RF Rx Instructions: to adminster insulin four times daily omeprazole 20 mg capsule,delayed release(DR/EC) 20 mg PO DAILY Qty: 30 0RF Referrals: Juaquin Moreland DO [Primary Care Provider] - Stand Alone Forms: Patient Portal/API
== END 2023-10-31 01:30 | disposition home or self-care (01) ==
PROVIDERS: Emergency Provider Emergency Medicine; PCP Family Medicine
DX: I10 Essential (primary) hypertension (principal); E87.6 Hypokalemia; R42 Dizziness and giddiness; R06.02 Shortness of breath; Z99.2 Dependence on renal dialysis
CPT/HCPCS: 36415; 71045; 80053; 82550; 83690; 84484; 85025; 93005; 93010; 99283; 99284

== ENCOUNTER 2024-01-22 15:49 | Emergency (ER) | payer MEDICARE, MEDICAID, SELFPAY ==
[2024-01-22 15:55] VITALS: BP 183/88; PULSE 74; O2SAT 100
[2024-01-22 15:58] VITALS: BP 183/88; PULSE 70; RESP 16; TEMP 36.7; O2SAT 99
[2024-01-22 16:00] VITALS: BP 161/78; PULSE 69; RESP 14; O2SAT 100
--- NOTE | 2024-01-22 16:01 | DI.RAD.S_ITS ---
PROCEDURE: XR CHEST 1V INDICATIONS: chest pain TECHNIQUE: One view of the chest was acquired. COMPARISON: [facility], CR, XR CHEST 1V, 10/30/2023, 23:45. FINDINGS: Surgical changes and devices: Right-sided dialysis catheter tip is in SVC/right atrium. Lungs and pleura: Lungs are clear. No pleural effusions or pneumothorax. Mediastinum: Mediastinal contours appear normal. Heart size is enlarged. Bones and chest wall: No suspicious bony lesions. Overlying soft tissues appear unremarkable. IMPRESSION: No acute cardiopulmonary pathology. Dictated by: Kale Sharma M.D. on 01/22/2024 at 16:31 Approved by: Klae Sharma M.D. on 01/22/2024 at 16:32
[2024-01-22 16:30] VITALS: BP 129/66; PULSE 65; RESP 11; O2SAT 95
[2024-01-22 17:00] VITALS: BP 129/69; PULSE 66; RESP 11; O2SAT 99
[2024-01-22 17:30] VITALS: BP 133/66; PULSE 67; RESP 11; O2SAT 99
--- NOTE | 2024-01-22 17:31 | ED.CHESTPAIN ---
HPI - Chest Pain General Chief Complaint: Chest Pain Stated Complaint: chest pain/ weakness Time Seen by Provider: 01/22/24 17:31 Source: patient and EMS Mode of arrival: EMS Limitations: no limitations History of Present Illness HPI narrative: Patient is a 33-year-old male history of diabetes on dialysis, hypertension presenting today with some dizziness while having dialysis. He reports that he had about 3-1/2 hours of dialysis he was almost done he had to go the bathroom when he came back he got very dizzy and lightheaded blood pressure went up very high. Glucose in the ED was found to be 84 he is given some juice. He overall refused any type of blood work he is feeling much better vitals have improved. He denies any sort of chest pain he did not pass out or have a syncopal episode Related Data Home Medications Medication Instructions Recorded Confirmed hydralazine 100 mg tablet 100 mg PO TID 11/24/22 10/19/23 losartan 50 mg tablet 50 mg PO BEDTIME 11/24/22 10/19/23 carvedilol 25 mg tablet 25 mg PO BID 01/18/23 10/19/23 cyclobenzaprine 5 mg tablet 5 mg PO TID PRN 01/18/23 10/19/23 furosemide 80 mg tablet 80 mg PO BID 01/18/23 10/19/23 isosorbide dinitrate 30 mg tablet 30 mg PO BID 01/18/23 10/19/23 sevelamer HCl 800 mg tablet 1,600 mg PO TID 01/18/23 10/19/23 trazodone 50 mg tablet 50 mg PO BEDTIME PRN 01/18/23 10/19/23 felodipine 2.5 mg tablet,extended 2.5 mg PO BID PRN 10/19/23 10/19/23 release 24 hr Previous Rx's Medication Instructions Recorded Glucose: Test Strips #100 ea 01/06/19 spironolactone 100 mg tablet 100 mg PO DAILY #30 tabs 12/06/22 ondansetron 4 mg disintegrating 4 mg PO DAILY PRN nausea and 04/10/23 tablet vomiting #90 tabs insulin glargine 100 unit/mL (3 28 unit (0.28 mL) SUBCUT QPM #15 mL 08/06/23 mL) subcutaneous pen (Chenteaglar DamirPen U-100 Insulin) B-D PEN NEEDLE #400 ea 08/20/23 insulin aspart U-100 100 unit/mL 5 unit (0.05 mL) SUBCUT TID #15 mL 08/20/23 (3 mL) subcutaneous pen (Novolog FlexPen U-100 Insulin aspart) flash glucose scanning reader #1 ea 08/31/23 (FreeStyle Dilia 2 [place]) escitalopram oxalate 10 mg tablet 5 mg (1/2 x 10 mg) PO DAILY #45 10/01/23 tabs levothyroxine 150 mcg tablet 150 mcg PO QAM #90 tabs 10/08/23 flash glucose sensor (FreeStyle #2 ea 10/19/23 Dilia 2 Sensor kit) pen needle, diabetic 32 gauge x #100 ea 10/19/23 (BD Ultra-Fine Neelima Pen Needle) omeprazole 20 mg capsule,delayed 20 mg PO DAILY #30 caps 10/22/23 release potassium chloride 10 mEq 10 meq PO DAILY #14 tabs 10/31/23 tablet,extended release(part/cryst) (Klor-Con M) clonidine 0.3 mg/24 hr weekly 1 patch transdermal QWEEK #4 ea 11/05/23 transdermal patch Allergies Allergy/AdvReac Type Severity Reaction Status Date / Time atorvastatin Allergy Mild kidney Verified 01/22/24 16:00 pain apple juice AdvReac Uncoded 10/22/23 10:02 Patient History Medical History Benign essential HTN Breast mass in male Mastodynia of left breast Palpitations Diabetes mellitus type 1 Shingles Sleep apnea Seasonal allergies Post traumatic stress disorder (PTSD) Restless leg syndrome Chronic back pain Chicken pox (~1996) Hearing loss Hypothyroidism (~1995) Depression Anxiety Ankle pain Acne Dental caries Surgical History History of repair of pyloric stenosis Family History Father Age: 55 Cancer Hypertension Social History Smoking Status: Former smoker alcohol intake: current substance use type: marijuana Smoking Status: Former smoker alcohol intake frequency: a few times a week Substance Use Type: marijuana Exam Initial Vital Signs Initial Vital Signs: Vital Signs Pulse Rate 74 01/22/24 15:55 Blood Pressure 183/88 H 01/22/24 15:55 Pulse Oximetry 100 01/22/24 15:55 GENERAL: Thin alert well-appearing 33-year-old male and in no acute distress. HEENT: Head atraumatic,EOMI, pupils reactive, face symmetric, moist mucous membranes CARDIOVASCULAR: Regular rate and rhythm without murmurs, rubs or gallops. RESPIRATORY: Breath sounds equal bilaterally, no wheezes rales or rhonchi. ABDOMEN: Soft, nontender. Normoactive bowel sounds all 4 quadrants. No guarding or rebound. EXTREMITIES: Normal range of motion, no clubbing or edema. Neurovascularly intact NEUROLOGICAL: Alert and oriented x4.Normal gait and speech. Cranial nerves II through XII grossly intact. SKIN: Warm, dry, no laceration, no petechiae, no rashes or lesions. Dialysis catheter in place on right-sided chest dressing in place no erythema Course Orders Ordered: ED Orders 01/22/24 16:01 XR chest 1V Stat EKG-12 Lead Stat Vital Signs Vital signs: Vital Signs - 8 hr 01/22/24 15:55 01/22/24 15:55 01/22/24 15:58 Temperature 98.0 F Pulse Rate 74 70 Respiratory Rate 16 Blood Pressure 183/88 H 183/88 H Pulse Oximetry 100 99 Oxygen Delivery Method Room Air 01/22/24 16:00 01/22/24 16:00 01/22/24 16:30 Temperature Pulse Rate 69 65 Respiratory Rate 14 11 L Blood Pressure 161/78 H Pulse Oximetry 100 95 Oxygen Delivery Method 01/22/24 16:30 01/22/24 17:00 01/22/24 17:00 Temperature Pulse Rate 66 Respiratory Rate 11 L Blood Pressure 129/66 129/69 Pulse Oximetry 99 Oxygen Delivery Method 01/22/24 17:30 01/22/24 17:30 Temperature Pulse Rate 67 Respiratory Rate 11 L Blood Pressure 133/66 Pulse Oximetry 99 Oxygen Delivery Method MDM - Chest Pain Lab Data Labs: Point of Care Testing Glucose POC 84 ECG Data Attestation: I personally reviewed and interpreted this ECG as follows: Prior ECG tracings: available for review Interpretation: Normal sinus rhythm rate 71 NV interval 202 QRS [address] changes similar to previous EKGs [facility] Narrative Medical decision making narrative: Patient 33-year-old dialysis patient presents today with dizziness and hypertension. He has had similar episodes to this before. He has fear of needles. He does not want any type of blood work. Accu-Chek does show POC glucose of 84. Blood pressure has improved he initially had blood pressure of 183/88 it is now 133/66 heart rate of 67 he is resting comfortably his symptoms have completely resolved. He drank some juice. He understands this happens to him he does not want any further workup and would like to go home. He overall appears well I think this is reasonable. Discharge Plan Departure Patient Disposition: Home Clinical Impression: Hypoglycemia Instructions: DI for Hypoglycemia Activity Restrictions/Additional Instructions: *You have been diagnosed with hypoglycemia *What to do: At this time please go home and eat. *Continue to take medications as directed *Follow up with your primary care provider in 2-3 days or call [phone] *Return to ER if you should have dizziness weakness or any new, worsening or concerning symptoms Prescriptions: No Action escitalopram oxalate 10 mg tablet 5 mg PO DAILY Qty: 45 3RF (DME) Glucose: Test Strips 0 .Route .MEDSUPPLY Qty: 100 11RF Dose Instruction: As directed Rx Instructions: Test blood sugars up to 3 times daily ondansetron 4 mg tablet,disintegrating 4 mg PO DAILY PRN (Reason: nausea and vomiting) Qty: 90 0RF insulin glargine [Basaglar KwikPen U-100 Insulin] 100 unit/mL (3 mL) insulin pen 28 unit SUBCUT QPM Qty: 15 3RF (DME) FreeStyle Dilia 2 [place] Misc See Rx Instructions .Route Qty: 1 4RF Rx Instructions: Use to continuously monitor blood sugars levothyroxine 150 mcg tablet 150 mcg PO QAM Qty: 90 3RF clonidine 0.3 mg/24 hr patch weekly 1 patch transdermal QWEEK Qty: 4 5RF losartan 50 mg tablet 50 mg PO BEDTIME Patient Comments: TAKE ONE TABLET BY MOUTH NIGHTLY AT BEDTIME hydralazine 100 mg tablet 100 mg PO TID Hold Instructions: Patient insists on once daily dosing Patient Comments: TAKE ONE TABLET BY MOUTH THREE TIMES DAILY spironolactone 100 mg tablet 100 mg PO DAILY Qty: 30 0RF carvedilol 25 mg tablet 25 mg PO BID Rx Instructions: must administer with a meal/food cyclobenzaprine 5 mg tablet 5 mg PO TID PRN furosemide 80 mg tablet 80 mg PO BID isosorbide dinitrate 30 mg tablet 30 mg PO BID Rx Instructions: allow nitrate-free interval of 12-14 hrs per 24-hr period sevelamer HCl 800 mg tablet 1,600 mg PO TID Rx Instructions: must administer with a meal/food trazodone 50 mg tablet 50 mg PO BEDTIME PRN insulin aspart U-100 [Novolog FlexPen U-100 Insulin] 100 unit/mL (3 mL) insulin pen 5 unit SUBCUT TID Qty: 15 11RF Rx Instructions: before meals (DME) B-D PEN NEEDLE 8MM Qty: 400 11RF Dose Instruction: As directed Rx Instructions: TO ADMINISTER INSULIN UP TO 4 TIMES A DAY felodipine 2.5 mg tablet extended release 24 hr 2.5 mg PO BID PRN (DME) FreeStyle Dilia 2 Sensor Kit See Rx Instructions .Route Qty: 2 11RF Rx Instructions: Use to continuously monitor blood sugars (DME) pen needle, diabetic [BD Ultra-Fine Neelima Pen Needle] 32 gauge x 5/32 needle See Rx Instructions .ROUTE .MEDSUPPLY Qty: 100 4RF Rx Instructions: to adminster insulin four times daily omeprazole 20 mg capsule,delayed release(DR/EC) 20 mg PO DAILY Qty: 30 0RF potassium chloride [Klor-Con M10] 10 mEq tablet,ER particles/crystals 10 meq PO DAILY Qty: 14 0RF Referrals: Juaquin Moreland DO [Primary Care Provider] - Stand Alone Forms: Patient Portal/API
== END 2024-01-22 17:56 | disposition home or self-care (01) ==
PROVIDERS: Emergency Provider Emergency Medicine; PCP Family Medicine
DX: E10.649 Type 1 diabetes mellitus with hypoglycemia without coma (principal); I10 Essential (primary) hypertension; Z99.2 Dependence on renal dialysis; Z87.891 Personal history of nicotine dependence
CPT/HCPCS: 71045; 82962; 93005; 99283; 99284

== ENCOUNTER 2024-02-24 22:19 | Emergency (ER) | payer MEDICARE, MEDICAID, SELFPAY ==
--- NOTE | 2024-02-24 22:31 | DI.RAD.S_ITS ---
PROCEDURE: XR CHEST 1V INDICATIONS: Chest pain TECHNIQUE: One view of the chest was acquired. COMPARISON: [facility], CR, XR CHEST 1V, 01/22/2024, 16:07. [facility], CR, XR CHEST 1V, 10/30/2023, 23:45. FINDINGS: Surgical changes and devices: Dual-lumen dialysis catheter terminates in the lower SVC/proximal right atrium. Lungs and pleura: Prominent pulmonary vasculature. No airspace disease or pleural effusion. Mediastinum: Heart size is at the upper limit of normal. Bones and chest wall: Unremarkable IMPRESSION: Prominent pulmonary vasculature and heart size. No airspace disease or pleural effusions. Dictated by: Jose Ronquillo M.D. on 02/24/2024 at 23:00 Approved by: Jose Ronquillo M.D. on 02/24/2024 at 23:01
[2024-02-24 22:39] VITALS: BP 192/96; PULSE 79; RESP 18; TEMP 36.7; O2SAT 98; BMI 21.2
--- NOTE | 2024-02-24 23:13 | ED.CHESTPAIN ---
HPI - Chest Pain General Chief Complaint: Chest Pain Stated Complaint: Chest pain, on dialysis Time Seen by Provider: 02/24/24 22:30 Source: patient Mode of arrival: Ambulatory Limitations: no limitations History of Present Illness HPI narrative: Patient is a 33-year-old male. He has an insulin-dependent diabetic. History of chronic hypertension, end-stage renal disease on dialysis. His last dialysis treatment was yesterday. He was here for evaluation of chest discomfort. He also states that his blood pressure medications that he has been taking have not been working as well recently. It is his machine plate stacker who is maintaining his blood pressure medicines. He does have medication that he can take as needed for elevations in blood pressure. He has been taking hydralazine but only 1 tablet a day when he states he can take up to 3 tablets a day as needed. He states hydralazine does seem to make him somewhat nauseous. He was taking the rest of his medications as directed. He was told by his machine plate stacker that if he ever has chest discomfort that he needs to come to the emergency department for further evaluation. Related Data Home Medications Medication Instructions Recorded Confirmed hydralazine 100 mg tablet 100 mg PO TID 11/24/22 10/19/23 losartan 50 mg tablet 50 mg PO BEDTIME 11/24/22 10/19/23 carvedilol 25 mg tablet 25 mg PO BID 01/18/23 10/19/23 cyclobenzaprine 5 mg tablet 5 mg PO TID PRN 01/18/23 10/19/23 furosemide 80 mg tablet 80 mg PO BID 01/18/23 10/19/23 isosorbide dinitrate 30 mg tablet 30 mg PO BID 01/18/23 10/19/23 sevelamer HCl 800 mg tablet 1,600 mg PO TID 01/18/23 10/19/23 trazodone 50 mg tablet 50 mg PO BEDTIME PRN 01/18/23 10/19/23 felodipine 2.5 mg tablet,extended 2.5 mg PO BID PRN 10/19/23 10/19/23 release 24 hr Previous Rx's Medication Instructions Recorded Glucose: Test Strips #100 ea 01/06/19 spironolactone 100 mg tablet 100 mg PO DAILY #30 tabs 12/06/22 ondansetron 4 mg disintegrating 4 mg PO DAILY PRN nausea and 04/10/23 tablet vomiting #90 tabs insulin glargine 100 unit/mL (3 28 unit (0.28 mL) SUBCUT QPM #15 mL 08/06/23 mL) subcutaneous pen (Basaglar KwikPen U-100 Insulin) B-D PEN NEEDLE #400 ea 08/20/23 insulin aspart U-100 100 unit/mL 5 unit (0.05 mL) SUBCUT TID #15 mL 08/20/23 (3 mL) subcutaneous pen (Novolog FlexPen U-100 Insulin aspart) flash glucose scanning reader #1 ea 08/31/23 (FreeStyle Dilia 2 [place]) escitalopram oxalate 10 mg tablet 5 mg (1/2 x 10 mg) PO DAILY #45 10/01/23 tabs levothyroxine 150 mcg tablet 150 mcg PO QAM #90 tabs 10/08/23 flash glucose sensor (FreeStyle #2 ea 10/19/23 Dilia 2 Sensor kit) pen needle, diabetic 32 gauge x #100 ea 10/19/23 (BD Ultra-Fine Neelima Pen Needle) omeprazole 20 mg capsule,delayed 20 mg PO DAILY #30 caps 10/22/23 release potassium chloride 10 mEq 10 meq PO DAILY #14 tabs 10/31/23 tablet,extended release(part/cryst) (Klor-Con M) clonidine 0.3 mg/24 hr weekly 1 patch transdermal QWEEK #4 ea 11/05/23 transdermal patch Allergies Allergy/AdvReac Type Severity Reaction Status Date / Time atorvastatin Allergy Mild kidney Verified 01/22/24 16:00 pain apple juice AdvReac Uncoded 10/22/23 10:02 Review of Systems Review of Systems ROS Unobtainable: All systems reviewed & are unremarkable except as noted in HPI and below Patient History Medical History Benign essential HTN Breast mass in male Mastodynia of left breast Palpitations Diabetes mellitus type 1 Shingles Sleep apnea Seasonal allergies Post traumatic stress disorder (PTSD) Restless leg syndrome Chronic back pain Chicken pox (~1996) Hearing loss Hypothyroidism (~1995) Depression Anxiety Ankle pain Acne Dental caries Surgical History History of repair of pyloric stenosis Family History Father Age: 56 Cancer Hypertension Social History Smoking Status: Former smoker alcohol intake: current substance use type: marijuana Smoking Status: Former smoker alcohol intake frequency: a few times a week Substance Use Type: does not use Exam Initial Vital Signs Initial Vital Signs: Vital Signs Temperature 98.1 F 02/24/24 22:39 Pulse Rate 79 02/24/24 22:39 Respiratory Rate 18 02/24/24 22:39 Blood Pressure 192/96 H 02/24/24 22:39 Pulse Oximetry 98 02/24/24 22:39 Oxygen Delivery Method Room Air 02/24/24 22:39 Const General: cooperative, comfortable and No ill appearing HENMT Head: normal to inspection and normocephalic Chest Other: Dialysis catheter right upper chest Resp Effort & Inspection: normal respiratory effort Auscultation: clear to auscultation bilaterally Cardio Rate: regular rate Rhythm: regular rhythm GI Inspection: normal to inspection and non-distended Skin General: no rashes or lesions noted Neuro General: patient alert, patient awake, patient oriented x3 and moves all extremities Extrem General: capillary refill normal Course Orders Ordered: ED Orders 02/24/24 22:31 XR chest 1V Stat EKG-12 Lead Stat 02/24/24 22:45 Consult to NECK CUTTER - Sleep Manager Stat 02/24/24 23:07 Complete Blood Count AUTO DIFF Stat Comprehensive Metabolic Panel Stat Lipase Stat Magnesium Stat Troponin & CK Cardiac Panel Stat Vital Signs Vital signs: Vital Signs - 8 hr 02/24/24 22:39 02/25/24 00:06 Temperature 98.1 F Pulse Rate 79 71 Respiratory Rate 18 18 Blood Pressure 192/96 H 144/76 H Pulse Oximetry 98 96 Oxygen Delivery Method Room Air Room Air MDM - Chest Pain Lab Data Attestation: I reviewed the patient's lab results. 02/24/24 23:07 02/24/24 23:07 Labs: Lab Results 02/24/24 Range/Units 23:07 WBC 7.3 (4.5-11.0) X10^3/uL RBC 3.80 L (4.5-5.9) X10^6/uL Hgb 11.0 L (13.5-17.5) g/dL Hct 31.9 L (41-53) % MCV 83.7 (80-100) fL MCH 28.9 (26-34) PG MCHC 34.5 (30-36) % RDW 14.5 (11.6-14.8) % Plt Count 259 (150-400) X10^3/uL Neut % (Auto) 65.6 (50-75) % Lymph % (Auto) 24.0 L (25-40) % [place] % (Auto) 7.2 (3-14) % Eos % (Auto) 2.0 (2-4) % Baso % (Auto) 1.2 (0-2) % Neut # (Auto) 4800 (7464-3804) /uL Lymph # (Auto) 1700 (6712-0375) /uL [place] # (Auto) 500 (0-900) /uL Eos # (Auto) 100 (0-450) /uL Baso # (Auto) 100 (0-100) /uL Sodium 135 L (137-145) mmol/L Potassium 3.6 (3.4-5.1) mmol/L Chloride 100 (98-107) mmol/L Carbon Dioxide 26 (22-32) mmol/L BUN 36 H (9-20) mg/dL Creatinine 5.89 H (0.66-1.25) mg/dL Estimated GFR 12 L (>60) mL/min BUN/Creatinine Ratio 6.1 (6-22) Glucose 210 H (70-100) mg/dL Calcium 8.5 (8.4-10.2) mg/dL Magnesium 2.2 (1.6-2.3) mg/dL Total Bilirubin 0.6 (0.2-1.3) mg/dL AST 24 (17-59) IU/L ALT 17 (<50) IU/L Alkaline Phosphatase 74 (38-126) U/L Total Creatine Kinase 213 H (55-170) U/L Troponin I 0.017 (0.01-0.034) ng/mL Total Protein 6.8 (6.3-8.2) g/dL Albumin 3.9 (3.5-5.0) g/dL Globulin 2.9 (1.7-4.1) g/dL Albumin/Globulin Ratio 1.3 (1.0-2.8) Lipase 30 (23-300) U/L Imaging Data Chest x-ray: Radiologist's Impression: PROCEDURE: XR CHEST 1V INDICATIONS: Chest pain TECHNIQUE: One view of the chest was acquired. COMPARISON: [facility], CR, XR CHEST 1V, 01/22/2024, 16:07. [facility], CR, XR CHEST 1V, 10/30/2023, 23:45. FINDINGS: Surgical changes and devices: Dual-lumen dialysis catheter terminates in the lower SVC/proximal right atrium. Lungs and pleura: Prominent pulmonary vasculature. No airspace disease or pleural effusion. Mediastinum: Heart size is at the upper limit of normal. Bones and chest wall: Unremarkable IMPRESSION: Prominent pulmonary vasculature and heart size. No airspace disease or pleural effusions. ECG Data Attestation: I personally reviewed and interpreted this ECG as follows: Interpretation: Sinus rhythm Ventricular rate of 80 Left axis deviation Nonspecific ST T wave changes MDM Narrative Medical decision making narrative: Low suspicion for ACS. Kidney function is at baseline any scheduled for dialysis on Sunday of this week. No indication of CHF or fluid overload. Electrolytes are unremarkable. Troponin is negative. I discussed with him that he can take his hydralazine as directed by his machine plate stacker if his blood pressure remains elevated despite his normal treatment. I advised that he talk with his machine plate stacker tomorrow to discuss potentially changing any of his medications if needed. No indication for admission to hospital. He was given return precautions. He expressed understanding and agreement. Discharge Plan Departure Patient Disposition: Home Clinical Impression: Atypical chest pain, End stage renal disease on dialysis, Hypertension Instructions: High Blood Pressure, DI for Atypical Chest Pain Activity Restrictions/Additional Instructions: I do recommend that you continue to take all of your medications as directed. Tomorrow contact your machine plate stacker to discuss your blood pressure to see if you need to change any of your medications to help control your blood pressure better. Keep your scheduled dialysis appointment on Sunday. Prescriptions: No Action escitalopram oxalate 10 mg tablet 5 mg PO DAILY Qty: 45 3RF (DME) Glucose: Test Strips 0 .Route .MEDSUPPLY Qty: 100 11RF Dose Instruction: As directed Rx Instructions: Test blood sugars up to 3 times daily ondansetron 4 mg tablet,disintegrating 4 mg PO DAILY PRN (Reason: nausea and vomiting) Qty: 90 0RF insulin glargine [Basaglar KwikPen U-100 Insulin] 100 unit/mL (3 mL) insulin pen 28 unit SUBCUT QPM Qty: 15 3RF (DME) FreeStyle Dilia 2 [place] Misc See Rx Instructions .Route Qty: 1 4RF Rx Instructions: Use to continuously monitor blood sugars levothyroxine 150 mcg tablet 150 mcg PO QAM Qty: 90 3RF clonidine 0.3 mg/24 hr patch weekly 1 patch transdermal QWEEK Qty: 4 5RF losartan 50 mg tablet 50 mg PO BEDTIME Patient Comments: TAKE ONE TABLET BY MOUTH NIGHTLY AT BEDTIME hydralazine 100 mg tablet 100 mg PO TID Hold Instructions: Patient insists on once daily dosing Patient Comments: TAKE ONE TABLET BY MOUTH THREE TIMES DAILY spironolactone 100 mg tablet 100 mg PO DAILY Qty: 30 0RF carvedilol 25 mg tablet 25 mg PO BID Rx Instructions: must administer with a meal/food cyclobenzaprine 5 mg tablet 5 mg PO TID PRN furosemide 80 mg tablet 80 mg PO BID isosorbide dinitrate 30 mg tablet 30 mg PO BID Rx Instructions: allow nitrate-free interval of 12-14 hrs per 24-hr period sevelamer HCl 800 mg tablet 1,600 mg PO TID Rx Instructions: must administer with a meal/food trazodone 50 mg tablet 50 mg PO BEDTIME PRN insulin aspart U-100 [Novolog FlexPen U-100 Insulin] 100 unit/mL (3 mL) insulin pen 5 unit SUBCUT TID Qty: 15 11RF Rx Instructions: before meals (DME) B-D PEN NEEDLE 8MM Qty: 400 11RF Dose Instruction: As directed Rx Instructions: TO ADMINISTER INSULIN UP TO 4 TIMES A DAY felodipine 2.5 mg tablet extended release 24 hr 2.5 mg PO BID PRN (DME) FreeStyle Dilia 2 Sensor Kit See Rx Instructions .Route Qty: 2 11RF Rx Instructions: Use to continuously monitor blood sugars (DME) pen needle, diabetic [BD Ultra-Fine Neelima Pen Needle] 32 gauge x 5/32 needle See Rx Instructions .ROUTE .MEDSUPPLY Qty: 100 4RF Rx Instructions: to adminster insulin four times daily omeprazole 20 mg capsule,delayed release(DR/EC) 20 mg PO DAILY Qty: 30 0RF potassium chloride [Klor-Con M10] 10 mEq tablet,ER particles/crystals 10 meq PO DAILY Qty: 14 0RF Referrals: Juaquin Moreland DO [Primary Care Provider] - Stand Alone Forms: Patient Portal/API
--- NOTE | 2024-02-24 23:17 | PC.NURSE ---
Pt refuses IV. Pt is OK with lab draw.
[2024-02-24 23:22] LABS: Add Manual Diff / Slide Review NO; Basophils Absolute Auto 100 /uL (0-100); Basophils Percent Auto 1.2 % (0-2); Eosinophils Absolute Auto 100 /uL (0-450); Hematocrit 31.9 % (41-53); Lymphocytes Absolute Auto 1700 /uL (1100-4500); Mean Corpuscular HGB Conc 34.5 % (30-36); Mean Corpuscular Hemoglobin 28.9 PG (26-34); Mean Corpuscular Volume 83.7 fL (80-100); Monocytes Absolute Auto 500 /uL (0-900); Monocytes Percent Auto 7.2 % (3-14); Neutrophils Absolute Auto 4800 /uL (1500-7000); Neutrophils Percent Auto 65.6 % (50-75); Platelet Count 259 X10^3/uL (150-400); Red Cell Distribution Width 14.5 % (11.6-14.8); White Blood Cell Count 7.3 X10^3/uL (4.5-11.0)
[2024-02-24 23:28] LABS: Alanine Aminotransferase 17 IU/L (<50); Albumin 3.9 g/dL (3.5-5.0); Albumin Globulin Ratio 1.3 (1.0-2.8); Alkaline Phosphatase 74 U/L (38-126); Aspartate Aminotransferase 24 IU/L (17-59); BUN Creatinine Ratio 6.1 (6-22); Bilirubin Total 0.6 mg/dL (0.2-1.3); Blood Urea Nitrogen 36 mg/dL (9-20); Calcium 8.5 mg/dL (8.4-10.2); Carbon Dioxide 26 mmol/L (22-32); Chloride 100 mmol/L (98-107); Creatine Kinase 213 U/L (55-170); Estimated Glomerular Filt Rate 12 mL/min (>60); Globulin 2.9 g/dL (1.7-4.1); Glucose 210 mg/dL (70-100); HEMOLYSIS < 15 (0-50); Lipase 30 U/L (23-300); Magnesium 2.2 mg/dL (1.6-2.3); Potassium 3.6 mmol/L (3.4-5.1); Sodium 135 mmol/L (137-145); Total Protein 6.8 g/dL (6.3-8.2)
[2024-02-24 23:39] LABS: Troponin I 0.017 ng/mL (0.01-0.034)
[2024-02-25 00:06] VITALS: BP 144/76; PULSE 71; RESP 18; O2SAT 96
== END 2024-02-25 00:07 | disposition home or self-care (01) ==
PROVIDERS: Emergency Provider Emergency Medicine; PCP Family Medicine
DX: R07.89 Other chest pain (principal); N18.6 End stage renal disease; I10 Essential (primary) hypertension; Z99.2 Dependence on renal dialysis
CPT/HCPCS: 36415; 71045; 80053; 82550; 83690; 83735; 84484; 85025; 93005; 99282; 99284

== ENCOUNTER → 2024-03-06 14:48 | Outpatient (CLI) | payer MEDICARE, MEDICAID, SELFPAY ==
[2024-03-06 17:22] LABS: Influenza A - CEPHEID Flu A NEGATIVE (NEGATIVE); Influenza B - CEPHEID Flu B NEGATIVE (NEGATIVE); Respiratory Syncytial Virus Negative (Negative)
[2024-03-06 17:26] LABS: COVID-19 CEPHEID 4-PLEX PCR Negative (Negative)
== END ==
PROVIDERS: PCP Family Medicine; Visit Provider Nurse Practitioner Family
DX: R05.1 Acute cough (principal); R50.9 Fever, unspecified
CPT/HCPCS: 0241U; 87070

== ENCOUNTER 2024-03-30 15:38 | Emergency (ER) | payer MEDICARE, MEDICAID, SELFPAY ==
[2024-03-30 15:40] VITALS: BP 177/90; PULSE 79; RESP 20; TEMP 36.9; O2SAT 98; BMI 22.5
--- NOTE | 2024-03-30 15:53 | DI.RAD.S_ITS ---
PROCEDURE: XR CHEST 1V INDICATIONS: chest pain TECHNIQUE: One view of the chest was acquired. COMPARISON: [facility], CR, XR CHEST 1V, 02/24/2024, 22:32. FINDINGS: Surgical changes and devices: A left-sided dialysis catheter is now seen, with the tip overlying the inferior aspect superior vena cava, with the inferior tip seen near the cavoatrial junction. Lungs and pleura: Lungs are clear. No pleural effusions or pneumothorax. Mediastinum: Mediastinal contours appear normal. Heart size is normal. Bones and chest wall: No suspicious bony lesions. Overlying soft tissues appear unremarkable. IMPRESSION: Appropriate placement left-sided dialysis catheter. Dictated by: Brodie Jean M.D. on 03/30/2024 at 15:58 Approved by: Brodie Jean M.D. on 03/30/2024 at 16:00
[2024-03-30 16:14] LABS: INR 1.1 (0.9-1.3); Prothrombin Time 12.4 SECONDS (9.4-12.5)
[2024-03-30 16:17] LABS: PTT Partial Thromboplastin Tim 39 SECONDS (25.1-36.5)
[2024-03-30 16:19] LABS: Add Manual Diff / Slide Review NO; Basophils Absolute Auto 100 /uL (0-100); Basophils Percent Auto 1.2 % (0-2); Eosinophils Absolute Auto 300 /uL (0-450); Eosinophils Percent Auto 4.9 % (2-4); Hematocrit 34.8 % (41-53); Hemoglobin 11.9 g/dL (13.5-17.5); Lymphocytes Absolute Auto 1700 /uL (1100-4500); Lymphocytes Percent Auto 23.6 % (25-40); Mean Corpuscular HGB Conc 34.1 % (30-36); Mean Corpuscular Hemoglobin 28.7 PG (26-34); Mean Corpuscular Volume 84.3 fL (80-100); Monocytes Absolute Auto 400 /uL (0-900); Monocytes Percent Auto 6.3 % (3-14); Neutrophils Absolute Auto 4500 /uL (1500-7000); Platelet Count 279 X10^3/uL (150-400); Red Blood Cell Count 4.13 X10^6/uL (4.5-5.9); Red Cell Distribution Width 16.2 % (11.6-14.8); White Blood Cell Count 7.1 X10^3/uL (4.5-11.0)
[2024-03-30 16:21] LABS: Alanine Aminotransferase 5 IU/L (<50); Albumin 4.1 g/dL (3.5-5.0); Albumin Globulin Ratio 1.2 (1.0-2.8); Alkaline Phosphatase 85 U/L (38-126); Aspartate Aminotransferase 27 IU/L (17-59); BUN Creatinine Ratio 4.1 (6-22); Bilirubin Total 0.6 mg/dL (0.2-1.3); Blood Urea Nitrogen 21 mg/dL (9-20); Carbon Dioxide 28 mmol/L (22-32); Chloride 100 mmol/L (98-107); Creatine Kinase 118 U/L (55-170); Estimated Glomerular Filt Rate 14 mL/min (>60); Globulin 3.5 g/dL (1.7-4.1); Glucose 140 mg/dL (70-100); HEMOLYSIS < 15 (0-50); Lipase 31 U/L (23-300); Magnesium 2.1 mg/dL (1.6-2.3); Potassium 3.9 mmol/L (3.4-5.1); Sodium 136 mmol/L (137-145); Total Protein 7.6 g/dL (6.3-8.2)
--- NOTE | 2024-03-30 16:22 | PC.NURSE ---
patient was being treated for staph in his R port. He had the port taken out and now has a left port for dialysis. He was also told he has pneumonia and is uncertain if the abx he was given fixed his Pneumonia. He is here for SOB and chest pain. Patient also states his BP is high today and isn't being helped with his BP medications. His lungs sounds are clear on both sides throughout.
[2024-03-30 16:26] VITALS: BP 167/107; PULSE 78; RESP 16; O2SAT 99
[2024-03-30 16:33] LABS: Troponin I 0.032 ng/mL (0.01-0.034)
[2024-03-30 17:10] VITALS: BP 167/86; PULSE 75; RESP 14; O2SAT 98
--- NOTE | 2024-03-30 18:39 | ED_ITS ---
HPI - Chest Pain General Chief Complaint: Chest Pain Stated Complaint: difficulty breathing/chest pain Time Seen by Provider: 03/30/24 17:52 Source: patient Mode of arrival: Ambulatory Limitations: no limitations History of Present Illness HPI narrative: 33-year-old male with history of type 1 diabetes, ESRD on Sunday dialysis presents by private vehicle for left-sided chest pain and shortness of breath. Patient states that chest pain began after finishing full dialysis session yesterday and has been persistent until today. Patient states that he has had a progressive decrease in his breathing capacity since being placed on dialysis. 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 He has been talking to his primary care doctor about a referral to pulmonology. Related Data Home Medications Medication Instructions Recorded Confirmed hydralazine 100 mg tablet 100 mg PO TID 11/24/22 03/26/24 losartan 50 mg tablet 50 mg PO BEDTIME 11/24/22 03/26/24 carvedilol 25 mg tablet 25 mg PO BID 01/18/23 03/26/24 cyclobenzaprine 5 mg tablet 5 mg PO TID PRN 01/18/23 03/26/24 furosemide 80 mg tablet 80 mg PO BID 01/18/23 03/26/24 isosorbide dinitrate 30 mg tablet 30 mg PO BID 01/18/23 03/26/24 sevelamer HCl 800 mg tablet 1,600 mg PO TID 01/18/23 03/26/24 trazodone 50 mg tablet 50 mg PO BEDTIME PRN 01/18/23 03/26/24 felodipine 2.5 mg tablet,extended 5 mg PO BID PRN 03/26/24 03/26/24 release 24 hr Previous Rx's Medication Instructions Recorded Glucose: Test Strips #100 ea 01/06/19 spironolactone 100 mg tablet 100 mg PO DAILY #30 tabs 12/06/22 ondansetron 4 mg disintegrating 4 mg PO DAILY PRN nausea and 04/10/23 tablet vomiting #90 tabs insulin glargine 100 unit/mL (3 28 unit (0.28 mL) SUBCUT QPM #15 mL 08/06/23 mL) subcutaneous pen (Lucy KwikPen U-100 Insulin) B-D PEN NEEDLE #400 ea 08/20/23 insulin aspart U-100 100 unit/mL 5 unit (0.05 mL) SUBCUT TID #15 mL 08/20/23 (3 mL) subcutaneous pen (Novolog FlexPen U-100 Insulin aspart) flash glucose scanning reader #1 ea 08/31/23 (FreeStyle Dilia 2 [place]) escitalopram oxalate 10 mg tablet 5 mg (1/2 x 10 mg) PO DAILY #45 10/01/23 tabs levothyroxine 150 mcg tablet 150 mcg PO QAM #90 tabs 10/08/23 flash glucose sensor (FreeStyle #2 ea 10/19/23 Dilia 2 Sensor kit) pen needle, diabetic 32 gauge x #100 ea 10/19/23 (BD Ultra-Fine Neelima Pen Needle) omeprazole 20 mg capsule,delayed 20 mg PO DAILY #30 caps 10/22/23 release potassium chloride 10 mEq 10 meq PO DAILY #14 tabs 10/31/23 tablet,extended release(part/cryst) (Klor-Con M) clonidine 0.3 mg/24 hr weekly 1 patch transdermal QWEEK #4 ea 11/05/23 transdermal patch fluticasone propionate 50 1 spray intranasal Q12H #16 grams 03/06/24 mcg/actuation nasal spray,suspension (Flonase Allergy Relief) Allergies Allergy/AdvReac Type Severity Reaction Status Date / Time atorvastatin Allergy Mild kidney Verified 03/30/24 15:49 pain apple juice AdvReac Uncoded 03/30/24 15:49 Review of Systems Review of Systems Narrative: See HPI Patient History Medical History Current mild episode of major depressive disorder Benign essential HTN Breast mass in male Mastodynia of left breast Palpitations Diabetes mellitus type 1 Shingles Sleep apnea Seasonal allergies Post traumatic stress disorder (PTSD) Restless leg syndrome Chronic back pain Chicken pox (~1996) Hearing loss Hypothyroidism (~1995) Depression Anxiety Ankle pain Acne Dental caries Surgical History History of repair of pyloric stenosis Family History Father Age: 56 Cancer Hypertension Social History Smoking Status: Former smoker alcohol intake: current substance use type: marijuana Smoking Status: Former smoker alcohol intake frequency: a few times a month Substance Use Type: does not use Exam Initial Vital Signs Initial Vital Signs: Vital Signs Temperature 98.4 F 03/30/24 15:40 Pulse Rate 79 03/30/24 15:40 Respiratory Rate 20 03/30/24 15:40 Blood Pressure 177/90 H 03/30/24 15:40 Pulse Oximetry 98 03/30/24 15:40 Oxygen Delivery Method Room Air 03/30/24 15:40 Const: Awake, alert, no acute distress, appears chronically unwell Cardiac: regular rate, regular rhythm Chest: Dialysis port in left chest, generalized tenderness to palpation over left chest wall RESP: unlabored, clear bilaterally, no wheezing MSK: Atraumatic, no edema Skin: Warm, Dry, intact, no rashes Neuro: AO x3, CN II-XII grossly intact, moves all extremities Course Orders Ordered: Discontinued Medications Aspirin (Aspirin 81 Mg Chew Tab) 324 mg PO NOW ONE Stop: 03/30/24 15:54 Vital Signs Vital signs: Vital Signs - 8 hr 03/30/24 15:40 03/30/24 16:26 03/30/24 17:10 Temperature 98.4 F Pulse Rate 79 78 75 Respiratory Rate 20 16 14 Blood Pressure 177/90 H 167/107 H 167/86 H Pulse Oximetry 98 99 98 Oxygen Delivery Method Room Air Room Air MDM - Chest Pain Differential Diagnosis Differential diagnosis: Likely fracture of rib, stable angina and atypical chest pain Lab Data 03/30/24 15:58 03/30/24 15:58 Labs: Lab Results 03/30/24 Range/Units 15:58 WBC 7.1 (4.5-11.0) X10^3/uL RBC 4.13 L (4.5-5.9) X10^6/uL Hgb 11.9 L (13.5-17.5) g/dL Hct 34.8 L (41-53) % MCV 84.3 (80-100) fL MCH 28.7 (26-34) PG MCHC 34.1 (30-36) % RDW 16.2 H (11.6-14.8) % Plt Count 279 (150-400) X10^3/uL Neut % (Auto) 64.0 (50-75) % Lymph % (Auto) 23.6 L (25-40) % [place] % (Auto) 6.3 (3-14) % Eos % (Auto) 4.9 H (2-4) % Baso % (Auto) 1.2 (0-2) % Neut # (Auto) 4500 (0013-8736) /uL Lymph # (Auto) 1700 (9296-3858) /uL [place] # (Auto) 400 (0-900) /uL Eos # (Auto) 300 (0-450) /uL Baso # (Auto) 100 (0-100) /uL PT 12.4 (9.4-12.5) SECONDS INR 1.1 (0.9-1.3) APTT 39 H (25.1-36.5) SECONDS Sodium 136 L (137-145) mmol/L Potassium 3.9 (3.4-5.1) mmol/L Chloride 100 (98-107) mmol/L Carbon Dioxide 28 (22-32) mmol/L BUN 21 H (9-20) mg/dL Creatinine 5.09 H (0.66-1.25) mg/dL Estimated GFR 14 L (>60) mL/min BUN/Creatinine Ratio 4.1 L (6-22) Glucose 140 H (70-100) mg/dL Calcium 9.0 (8.4-10.2) mg/dL Magnesium 2.1 (1.6-2.3) mg/dL Total Bilirubin 0.6 (0.2-1.3) mg/dL AST 27 (17-59) IU/L ALT 5 (<50) IU/L Alkaline Phosphatase 85 (38-126) U/L Total Creatine Kinase 118 (55-170) U/L Troponin I 0.032 (0.01-0.034) ng/mL Total Protein 7.6 (6.3-8.2) g/dL Albumin 4.1 (3.5-5.0) g/dL Globulin 3.5 (1.7-4.1) g/dL Albumin/Globulin Ratio 1.2 (1.0-2.8) Lipase 31 (23-300) U/L Imaging Data Chest x-ray: Radiologist's Impression: PROCEDURE: XR CHEST 1V INDICATIONS: chest pain TECHNIQUE: One view of the chest was acquired. COMPARISON: Located Within [facility], CR, XR CHEST 1V, 02/24/2024, 22:32. FINDINGS: Surgical changes and devices: A left-sided dialysis catheter is now seen, with the tip overlying the inferior aspect superior vena cava, with the inferior tip seen near the cavoatrial junction. Lungs and pleura: Lungs are clear. No pleural effusions or pneumothorax. Mediastinum: Mediastinal contours appear normal. Heart size is normal. Bones and chest wall: No suspicious bony lesions. Overlying soft tissues appear unremarkable. IMPRESSION: Appropriate placement left-sided dialysis catheter. Dictated by: Brodie Jean M.D. on 03/30/2024 at 15:58 Approved by: Brodie Jean M.D. on 03/30/2024 at 16:00 ECG Data Interpretation: Normal sinus rhythm at 76 beats per minute. T-wave inversions in lateral leads, no significant change from prior EKG 10/30/2023 MDM Narrative Medical decision making narrative: Left-sided chest pain and shortness of breath since dialysis yesterday. Reports that chest pain is a pressure sensation that is reproduced when pressing on his chest wall. Shortness of breath is chronic, slightly worse after dialysis yesterday. Saturating well on room air, speaking in complete sentences without dyspnea. Lungs are clear to auscultation bilaterally, slightly decreased lung sounds on the right-hand side, but no rales or rhonchi to suggest pulmonary edema. Completed full session of dialysis yesterday. EKG shows lateral T-wave inversions, however these were present on a prior EKG from 10/30/2023. Laboratory work is reviewed, no significant abnormalities. Elevated creatinine, consistent with the patient's known history of ESRD. Troponin undetectable. Chest x-ray negative for volume overload, pneumonia, pleural effusion, or other acute abnormalities. Lab and imaging findings discussed with the patient at bedside. Recommended continued discussion with Nephrology to see if maybe taking additional fluid off during dialysis sessions would help his symptoms. In addition patient may benefit from pulmonology consult as he has had reported progressive decline in his pulmonary function. Discharge Plan Departure Patient Disposition: Home Clinical Impression: Chest pain, Shortness of breath Instructions: DI for Chest Pain Activity Restrictions/Additional Instructions: Your laboratory work, EKG, and chest x-ray did not indicate any heart attack or volume overload at this time. I do not know for sure the cause of your symptoms, but there was no indication for hospitalization at this time. 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 It may also be worthwhile asking your primary doctor about a referral to pulmonology if you continue to have shortness of breath. Prescriptions: No Action fluticasone propionate [Flonase Allergy Relief] 50 mcg/actuation spray,suspension 1 spray intranasal Q12H Qty: 16 0RF Rx Instructions: administer into each nostril escitalopram oxalate 10 mg tablet 5 mg PO DAILY Qty: 45 3RF (DME) Glucose: Test Strips 0 .Route .MEDSUPPLY Qty: 100 11RF Dose Instruction: As directed Rx Instructions: Test blood sugars up to 3 times daily ondansetron 4 mg tablet,disintegrating 4 mg PO DAILY PRN (Reason: nausea and vomiting) Qty: 90 0RF insulin glargine [Basaglar KwikPen U-100 Insulin] 100 unit/mL (3 mL) insulin pen 28 unit SUBCUT QPM Qty: 15 3RF (DME) FreeStyle Dilia 2 [place] Misc See Rx Instructions .Route Qty: 1 4RF Rx Instructions: Use to continuously monitor blood sugars levothyroxine 150 mcg tablet 150 mcg PO QAM Qty: 90 3RF clonidine 0.3 mg/24 hr patch weekly 1 patch transdermal QWEEK Qty: 4 5RF losartan 50 mg tablet 50 mg PO BEDTIME Patient Comments: TAKE ONE TABLET BY MOUTH NIGHTLY AT BEDTIME hydralazine 100 mg tablet 100 mg PO TID Hold Instructions: Patient insists on once daily dosing Patient Comments: TAKE ONE TABLET BY MOUTH THREE TIMES DAILY spironolactone 100 mg tablet 100 mg PO DAILY Qty: 30 0RF carvedilol 25 mg tablet 25 mg PO BID Rx Instructions: must administer with a meal/food cyclobenzaprine 5 mg tablet 5 mg PO TID PRN furosemide 80 mg tablet 80 mg PO BID isosorbide dinitrate 30 mg tablet 30 mg PO BID Rx Instructions: allow nitrate-free interval of 12-14 hrs per 24-hr period sevelamer HCl 800 mg tablet 1,600 mg PO TID Rx Instructions: must administer with a meal/food trazodone 50 mg tablet 50 mg PO BEDTIME PRN insulin aspart U-100 [Novolog FlexPen U-100 Insulin] 100 unit/mL (3 mL) insulin pen 5 unit SUBCUT TID Qty: 15 11RF Rx Instructions: before meals (DME) B-D PEN NEEDLE 8MM Qty: 400 11RF Dose Instruction: As directed Rx Instructions: TO ADMINISTER INSULIN UP TO 4 TIMES A DAY (DME) FreeStyle Dilia 2 Sensor Kit See Rx Instructions .Route Qty: 2 11RF Rx Instructions: Use to continuously monitor blood sugars (DME) pen needle, diabetic [BD Ultra-Fine Neelima Pen Needle] 32 gauge x 5/32 needle See Rx Instructions .ROUTE .MEDSUPPLY Qty: 100 4RF Rx Instructions: to adminster insulin four times daily felodipine 2.5 mg tablet extended release 24 hr 5 mg PO BID PRN omeprazole 20 mg capsule,delayed release(DR/EC) 20 mg PO DAILY Qty: 30 0RF potassium chloride [Klor-Con M10] 10 mEq tablet,ER particles/crystals 10 meq PO DAILY Qty: 14 0RF Referrals: Juaquin Moreland DO [Primary Care Provider] - Stand Alone Forms: Patient Portal/API
[2024-03-30 20:03] VITALS: BP 151/78; PULSE 84; RESP 16; O2SAT 97
== END 2024-03-30 20:04 | disposition home or self-care (01) ==
PROVIDERS: Emergency Medicine; Emergency Provider Emergency Medicine; PCP Family Medicine
DX: R07.9 Chest pain, unspecified (principal); R06.02 Shortness of breath
CPT/HCPCS: 36415; 71045; 80053; 82550; 83690; 83735; 84484; 85025; 85610; 85730; 93005; 93010; 99284

== ENCOUNTER 2024-08-14 16:12 | Emergency (ER) | payer MEDICARE, MEDICAID, SELFPAY ==
[2024-08-14] VITALS (7 sets, daily range): BP systolic 127–174; BP diastolic 62–85; PULSE 69–74; RESP 9–18; TEMP 36.9; O2SAT 95–100; BMI 21.4
--- NOTE | 2024-08-14 16:26 | DI.RAD.S_ITS ---
PROCEDURE: XR CHEST 1V INDICATIONS: Shortness of breath TECHNIQUE: One view of the chest was acquired. COMPARISON: , CR, XR CHEST 1 VIEW, 03/08/2024, 13:35. [facility], CR, XR CHEST 1V, 03/30/2024, 16:19. FINDINGS: Surgical changes and devices: There is a stable left-sided dialysis catheter. Lungs and pleura: Mild generalized interstitial prominence can be seen. Low lung volumes are noted. This causes a crowded appearance to the lung markings and limits evaluation. There is blunting of the left costophrenic angle. No pneumothorax. Mediastinum: Mediastinal contours appear normal. Heart size is at the upper limits of normal. Bones and chest wall: No suspicious bony lesions. Overlying soft tissues appear unremarkable. IMPRESSION: Mild interstitial prominence, with a small right-sided pleural effusion. Please consider mild fluid overload. Low lung volumes noted. Stable dialysis catheter. Dictated by: Brodie Jean M.D. on 08/14/2024 at 16:32 Approved by: Brodie Jean M.D. on 08/14/2024 at 16:33
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
--- NOTE | 2024-08-14 19:11 | ED_ITS ---
HPI - SOB/Dyspnea General Chief Complaint: Shortness of Breath/Dyspnea Stated Complaint: SOB after dialysis today Time Seen by Provider: 08/14/24 19:08 Source: patient Mode of arrival: Wheelchair Limitations: no limitations History of Present Illness HPI Narrative: 33-year-old male with history of end-stage renal disease, on hemodialysis via left anterior chest hemodialysis site, usually receives Sunday hemodialysis sessions, had short session on Sunday, had more fluid taken off today earlier today, felt like he was having some chest discomfort and stopped the session 9 minutes short of full session today. Chest discomfort resolved prior to arrival without specific treatment. No recent cough or shortness of breath. No fevers or chills. No abdominal discomfort. Related Data Home Medications Medication Instructions Recorded Confirmed hydralazine 100 mg tablet 100 mg PO TID 11/24/22 03/26/24 losartan 50 mg tablet 50 mg PO BEDTIME 11/24/22 03/26/24 carvedilol 25 mg tablet 25 mg PO BID 01/18/23 03/26/24 cyclobenzaprine 5 mg tablet 5 mg PO TID PRN 01/18/23 03/26/24 furosemide 80 mg tablet 80 mg PO BID 01/18/23 03/26/24 isosorbide dinitrate 30 mg tablet 30 mg PO BID 01/18/23 03/26/24 sevelamer HCl 800 mg tablet 1,600 mg PO TID 01/18/23 03/26/24 trazodone 50 mg tablet 50 mg PO BEDTIME PRN 01/18/23 03/26/24 felodipine 2.5 mg tablet,extended 5 mg PO BID PRN 03/26/24 03/26/24 release 24 hr Previous Rx's Medication Instructions Recorded Glucose: Test Strips #100 ea 01/06/19 spironolactone 100 mg tablet 100 mg PO DAILY #30 tabs 12/06/22 ondansetron 4 mg disintegrating 4 mg PO DAILY PRN nausea and 04/10/23 tablet vomiting #90 tabs B-D PEN NEEDLE #400 ea 08/20/23 insulin aspart U-100 100 unit/mL 5 unit (0.05 mL) SUBCUT TID #15 mL 08/20/23 (3 mL) subcutaneous pen (Novolog FlexPen U-100 Insulin aspart) flash glucose scanning reader #1 ea 08/31/23 (FreeStyle Dilia 2 Cutler) levothyroxine 150 mcg tablet 150 mcg PO QAM #90 tabs 10/08/23 flash glucose sensor (FreeStyle #2 ea 10/19/23 Dilia 2 Sensor kit) pen needle, diabetic 32 gauge x #100 ea 10/19/23 (BD Ultra-Fine Neelima Pen Needle) omeprazole 20 mg capsule,delayed 20 mg PO DAILY #30 caps 10/22/23 release potassium chloride 10 mEq 10 meq PO DAILY #14 tabs 10/31/23 tablet,extended release(part/cryst) (Klor-Con M) clonidine 0.3 mg/24 hr weekly 1 patch transdermal QWEEK #4 ea 11/05/23 transdermal patch fluticasone propionate 50 1 spray intranasal Q12H #16 grams 03/06/24 mcg/actuation nasal spray,suspension (Flonase Allergy Relief) insulin glargine 100 unit/mL (3 28 unit (0.28 mL) SUBCUT QPM #15 mL 04/30/24 mL) subcutaneous pen (Basaglar KwikPen U-100 Insulin) escitalopram oxalate 10 mg tablet 5 mg (1/2 x 10 mg) PO DAILY #45 08/11/24 tabs Allergies Allergy/AdvReac Type Severity Reaction Status Date / Time atorvastatin Allergy Mild kidney Verified 08/14/24 16:25 pain chlorhexidine AdvReac Mild Rash Verified 08/14/24 16:25 apple juice AdvReac Uncoded 08/14/24 16:25 Review of Systems Review of Systems Narrative: see HPI Patient History Medical History Current mild episode of major depressive disorder Benign essential HTN Breast mass in male Mastodynia of left breast Palpitations Diabetes mellitus type 1 Shingles Sleep apnea Seasonal allergies Post traumatic stress disorder (PTSD) Restless leg syndrome Chronic back pain Chicken pox (~1996) Hearing loss Hypothyroidism (~1995) Depression Anxiety Ankle pain Acne Dental caries Surgical History History of repair of pyloric stenosis Family History Father Age: 56 Cancer Hypertension Social History Smoking Status: Former smoker alcohol intake: current substance use type: marijuana Smoking Status: Former smoker alcohol intake frequency: a few times a month Substance Use Type: does not use Exam Narrative Exam Narrative: GENERAL: Well-developed patient, in mild distress. HEAD: Atraumatic. Normocephalic. EYES: Pupils equal round and reactive. Extraocular motions intact. No scleral icterus. No injection or drainage. ENT: Nose without bleeding, purulent drainage. Throat without erythema, tonsillar hypertrophy or exudate. Airway patent. NECK: Trachea midline. Non tender CARDIOVASCULAR: Regular rate and rhythm without murmurs, gallops, or rubs. RESPIRATORY: Clear to auscultation. Breath sounds equal bilaterally. No wheezes, rales, or rhonchi. Left anterior upper chest hemodialysis catheter site, without redness or swelling or bleeding. GASTROINTESTINAL: Abdomen soft, non-tender, nondistended. EXTREMITIES: No edema or joint tenderness. BACK: Nontender without deformity or crepitance. No flank tenderness. NEURO: AOx3. Motor functions grossly nonfocal SKIN: No rash or erythema of visible areas. Sandals like lora lines feet, no lower extremity edema. Initial Vital Signs Initial Vital Signs: Vital Signs Temperature 98.5 F 08/14/24 16:17 Pulse Rate 74 08/14/24 16:17 Respiratory Rate 18 08/14/24 16:17 Blood Pressure 172/82 H 08/14/24 16:17 Pulse Oximetry 100 08/14/24 16:17 Oxygen Delivery Method Room Air 08/14/24 16:17 Course Orders Ordered: ED Orders 08/14/24 16:26 XR chest 1V Stat EKG-12 Lead Stat Measure peak expiratory flow ONCE RT Consult Eval and Treat NOW Vital Signs Vital signs: Vital Signs - 8 hr 08/14/24 16:17 08/14/24 17:54 08/14/24 17:55 Temperature 98.5 F Pulse Rate 74 Respiratory Rate 18 Blood Pressure 172/82 H 174/84 H Pulse Oximetry 100 99 Oxygen Delivery Method Room Air 08/14/24 17:55 08/14/24 18:00 08/14/24 18:00 Temperature Pulse Rate 72 69 Respiratory Rate 9 L Blood Pressure 166/85 H Pulse Oximetry 98 98 Oxygen Delivery Method 08/14/24 18:30 08/14/24 18:30 08/14/24 19:00 Temperature Pulse Rate 69 Respiratory Rate 13 Blood Pressure 159/77 H 140/69 Pulse Oximetry 95 Oxygen Delivery Method 08/14/24 19:00 08/14/24 19:30 08/14/24 19:30 Temperature Pulse Rate 70 69 Respiratory Rate 12 15 Blood Pressure 127/62 Pulse Oximetry 96 98 Oxygen Delivery Method Room Air MDM - SOB/Dyspnea Imaging Data Chest x-ray: Radiologist's Impression: [address] [address] XRay Report Signed Patient: Francis Bazan MR#: [id number] : 1990 Acct:[id number] Age/Sex: 33 / M Date of Service: 08/14/24 Loc: ED Accession Number: [id number] Procedure: XR chest 1V Ordering Provider: Keesha Dean MD PROCEDURE: XR CHEST 1V INDICATIONS: Shortness of breath TECHNIQUE: One view of the chest was acquired. COMPARISON: [facility], CR, XR CHEST 1 VIEW, 03/08/2024, 13:35. Formerly [facility], CR, XR CHEST 1V, 03/30/2024, 16:19. FINDINGS: Surgical changes and devices: There is a stable left-sided dialysis catheter. Lungs and pleura: Mild generalized interstitial prominence can be seen. Low lung volumes are noted. This causes a crowded appearance to the lung markings and limits evaluation. There is blunting of the left costophrenic angle. No pneumothorax. Mediastinum: Mediastinal contours appear normal. Heart size is at the upper limits of normal. Bones and chest wall: No suspicious bony lesions. Overlying soft tissues appear unremarkable. IMPRESSION: Mild interstitial prominence, with a small right-sided pleural effusion. Please consider mild fluid overload. Low lung volumes noted. Stable dialysis catheter. Dictated by: Brodie Jean M.D. on 08/14/2024 at 16:32 Approved by: Brodie Jean M.D. on 08/14/2024 at 16:33 ECG Data Attestation: I personally reviewed and interpreted this ECG as follows: Interpretation: Normal sinus rhythm with rate of 70, no obvious ST segment elevation or depression changes. T-wave inversion lead V6 noted. WA 202, QRS 82, QTC 470. MDM Narrative Medical decision making narrative: 33-year-old male had hemodialysis session earlier today, more fluid taken off today due to short session on Sunday, session today stopped 9 minutes short of full session due to chest discomfort. On arrival here he had no chest discomfort. Elevated blood pressure improved after patient had taken his oral blood pressure medications. He allowed chest x-ray, no infiltrates, mild fluid over load only, see radiology report. He allowed EKG, lateral T-wave inversion lead V6 noted. He did not allow blood draws. He did not allow COVID/flu swabs. He felt better, able to take oral fluids, glucose 100s noted. History of diabetes noted. He would like to leave, expressed understanding of risk refusal for testing, and will leave against medical advice, no blood work assessment to evaluate further for his episode of chest pain. Follow up advised for next hemodialysis session on Sunday as scheduled. Return precautions discussed. Left against medical advice, having been noncompliant with laboratory assessments ordered Discharge Plan Departure Patient Disposition: Left Against Medical Advice Clinical Impression: Chest discomfort, History of chronic renal failure, History of diabetes mellitus, History of hemodialysis, Left against medical advice Activity Restrictions/Additional Instructions: Chest discomfort near and session hemodialysis earlier today, 9 minutes left of full session completed. Recent Sunday session was short. Chest discomfort earlier today, EKG showed no definite heart attack like changes. Chest x-ray without obvious pneumonia changes. You however refused to have blood work to further assess the type of chest pain that you were having. It is not possible to tell if there is certain forms of heart attack without blood testing. You felt better, wanted to leave, your blood pressure was improved. You left against medical advice, having not participated with advised laboratory evaluations to make sure that no emergency medical condition exists. You are encouraged to follow up for your Sunday hemodialysis as scheduled. Take your medications as prescribed. Return for any further chest pain events. Return earlier any time to this/nearest emergency department for any change worsening symptoms or any concerns prior to your next hemodialysis sessions. Prescriptions: No Action fluticasone propionate [Flonase Allergy Relief] 50 mcg/actuation spray,suspension 1 spray intranasal Q12H Qty: 16 0RF Rx Instructions: administer into each nostril escitalopram oxalate 10 mg tablet 5 mg PO DAILY Qty: 45 3RF (DME) Glucose: Test Strips 0 .Route .MEDSUPPLY Qty: 100 11RF Dose Instruction: As directed Rx Instructions: Test blood sugars up to 3 times daily ondansetron 4 mg tablet,disintegrating 4 mg PO DAILY PRN (Reason: nausea and vomiting) Qty: 90 0RF (DME) FreeStyle Dilia 2 Cutler Misc See Rx Instructions .Route Qty: 1 4RF Rx Instructions: Use to continuously monitor blood sugars levothyroxine 150 mcg tablet 150 mcg PO QAM Qty: 90 3RF clonidine 0.3 mg/24 hr patch weekly 1 patch transdermal QWEEK Qty: 4 5RF insulin glargine [Basaglar KwikPen U-100 Insulin] 100 unit/mL (3 mL) insulin pen 28 unit SUBCUT QPM Qty: 15 5RF losartan 50 mg tablet 50 mg PO BEDTIME Patient Comments: TAKE ONE TABLET BY MOUTH NIGHTLY AT BEDTIME hydralazine 100 mg tablet 100 mg PO TID Hold Instructions: Patient insists on once daily dosing Patient Comments: TAKE ONE TABLET BY MOUTH THREE TIMES DAILY spironolactone 100 mg tablet 100 mg PO DAILY Qty: 30 0RF carvedilol 25 mg tablet 25 mg PO BID Rx Instructions: must administer with a meal/food cyclobenzaprine 5 mg tablet 5 mg PO TID PRN furosemide 80 mg tablet 80 mg PO BID isosorbide dinitrate 30 mg tablet 30 mg PO BID Rx Instructions: allow nitrate-free interval of 12-14 hrs per 24-hr period sevelamer HCl 800 mg tablet 1,600 mg PO TID Rx Instructions: must administer with a meal/food trazodone 50 mg tablet 50 mg PO BEDTIME PRN insulin aspart U-100 [Novolog FlexPen U-100 Insulin] 100 unit/mL (3 mL) insulin pen 5 unit SUBCUT TID Qty: 15 11RF Rx Instructions: before meals (DME) B-D PEN NEEDLE 8MM Qty: 400 11RF Dose Instruction: As directed Rx Instructions: TO ADMINISTER INSULIN UP TO 4 TIMES A DAY (DME) FreeStyle Dilia 2 Sensor Kit See Rx Instructions .Route Qty: 2 11RF Rx Instructions: Use to continuously monitor blood sugars (DME) pen needle, diabetic [BD Ultra-Fine Neelima Pen Needle] 32 gauge x 5/32 needle See Rx Instructions .ROUTE .MEDSUPPLY Qty: 100 4RF Rx Instructions: to adminster insulin four times daily felodipine 2.5 mg tablet extended release 24 hr 5 mg PO BID PRN omeprazole 20 mg capsule,delayed release(DR/EC) 20 mg PO DAILY Qty: 30 0RF potassium chloride [Klor-Con M10] 10 mEq tablet,ER particles/crystals 10 meq PO DAILY Qty: 14 0RF Referrals: Juaquin Moreland DO [Primary Care Provider] - Stand Alone Forms: Patient Portal/API, Against Medical Advice
== END 2024-08-14 19:46 | disposition left against medical advice (07) ==
PROVIDERS: Emergency Provider Emergency Medicine; PCP Family Medicine
DX: R07.9 Chest pain, unspecified (principal); R06.02 Shortness of breath; N18.6 End stage renal disease; Z99.2 Dependence on renal dialysis; E11.9 Type 2 diabetes mellitus without complications; Z79.899 Other long term (current) drug therapy
CPT/HCPCS: 71045; 93005; 99283; 99284

== ENCOUNTER 2024-10-19 16:24 | Emergency (ER) | payer MEDICARE, MEDICAID, SELFPAY ==
[2024-10-19 16:27] VITALS: BP 201/98; PULSE 62; RESP 16; TEMP 36.1; O2SAT 98; BMI 21.1
--- NOTE | 2024-10-19 16:44 | EKG_ITS ---
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
--- NOTE | 2024-10-19 17:05 | PC.NURSE ---
Been out of sensor x1 week.
[2024-10-19] MEDS: DEXTROSE 10 % IN WATER 100 ML 999 ML IV (17:06)
--- NOTE | 2024-10-19 17:11 | ED.GENADULT ---
HPI - General Adult General Chief complaint: Diabetic Problem Stated complaint: weakness Time Seen by Provider: 10/19/24 16:54 Source: patient Mode of arrival: Family Vehicle History of Present Illness HPI narrative: Patient is a 34-year-old male history of insulin-dependent diabetes hypertension chronic kidney disease on hemodialysis Sunday he has not missed dialysis he went yesterday presenting today with hypoglycemia. He reports he takes Lantus 10 units at night which is what he normally does. He had his 2 cups coffee this morning he did not eat anything all day today also abnormal for him started to feel little bit shaky and lightheaded. Came to ED POC glucoses in the 50s. He has received some D10 and actually feeling better. He says that historically his glucose has been in the 30s he is he has been awake and alert. He says that yesterday dialysis they took off more than they normally do. Related Data Home Medications Medication Instructions Recorded Confirmed hydralazine 100 mg tablet 100 mg PO TID 11/24/22 03/26/24 losartan 50 mg tablet 50 mg PO BEDTIME 11/24/22 03/26/24 carvedilol 25 mg tablet 25 mg PO BID 01/18/23 03/26/24 cyclobenzaprine 5 mg tablet 5 mg PO TID PRN 01/18/23 03/26/24 furosemide 80 mg tablet 80 mg PO BID 01/18/23 03/26/24 isosorbide dinitrate 30 mg tablet 30 mg PO BID 01/18/23 03/26/24 sevelamer HCl 800 mg tablet 1,600 mg PO TID 01/18/23 03/26/24 trazodone 50 mg tablet 50 mg PO BEDTIME PRN 01/18/23 03/26/24 felodipine 2.5 mg tablet,extended 5 mg PO BID PRN 03/26/24 03/26/24 release 24 hr Previous Rx's Medication Instructions Recorded Glucose: Test Strips #100 ea 01/06/19 spironolactone 100 mg tablet 100 mg PO DAILY #30 tabs 12/06/22 ondansetron 4 mg disintegrating 4 mg PO DAILY PRN nausea and 04/10/23 tablet vomiting #90 tabs B-D PEN NEEDLE #400 ea 08/20/23 insulin aspart U-100 100 unit/mL 5 unit (0.05 mL) SUBCUT TID #15 mL 08/20/23 (3 mL) subcutaneous pen (Novolog FlexPen U-100 Insulin aspart) flash glucose scanning reader #1 ea 08/31/23 (FreeStyle Dilia 2 Natoma) levothyroxine 150 mcg tablet 150 mcg PO QAM #90 tabs 10/08/23 flash glucose sensor (FreeStyle #2 ea 10/19/23 Dilia 2 Sensor kit) pen needle, diabetic 32 gauge x #100 ea 10/19/23 (BD Ultra-Fine Neelima Pen Needle) omeprazole 20 mg capsule,delayed 20 mg PO DAILY #30 caps 10/22/23 release potassium chloride 10 mEq 10 meq PO DAILY #14 tabs 10/31/23 tablet,extended release(part/cryst) (Klor-Con M) clonidine 0.3 mg/24 hr weekly 1 patch transdermal QWEEK #4 ea 11/05/23 transdermal patch fluticasone propionate 50 1 spray intranasal Q12H #16 grams 03/06/24 mcg/actuation nasal spray,suspension (Flonase Allergy Relief) insulin glargine 100 unit/mL (3 28 unit (0.28 mL) SUBCUT QPM #15 mL 04/30/24 mL) subcutaneous pen (Basaglar KwikPen U-100 Insulin) escitalopram oxalate 10 mg tablet 5 mg (1/2 x 10 mg) PO DAILY #45 08/11/24 tabs Allergies Allergy/AdvReac Type Severity Reaction Status Date / Time atorvastatin Allergy Mild kidney Verified 08/14/24 16:25 pain chlorhexidine AdvReac Mild Rash Verified 08/14/24 16:25 apple juice AdvReac Uncoded 08/14/24 16:25 Patient History Medical History Current mild episode of major depressive disorder Benign essential HTN Breast mass in male Mastodynia of left breast Palpitations Diabetes mellitus type 1 Shingles Sleep apnea Seasonal allergies Post traumatic stress disorder (PTSD) Restless leg syndrome Chronic back pain Chicken pox (~1996) Hearing loss Hypothyroidism (~1995) Depression Anxiety Ankle pain Acne Dental caries Surgical History History of repair of pyloric stenosis Family History Father Age: 56 Cancer Hypertension Social History Smoking Status: Former smoker alcohol intake: current substance use type: marijuana Smoking Status: Former smoker alcohol intake frequency: a few times a month Exam Initial Vital Signs Initial Vital Signs: Vital Signs Temperature 97.0 F L 10/19/24 16:27 Pulse Rate 62 10/19/24 16:27 Respiratory Rate 16 10/19/24 16:27 Blood Pressure 201/98 H 10/19/24 16:27 Pulse Oximetry 98 10/19/24 16:27 Oxygen Delivery Method Room Air 10/19/24 16:27 GENERAL: Thin chronically ill 34-year-old male and in no acute distress. HEENT: Head atraumatic,EOMI, pupils reactive, face symmetric, moist mucous membranes CARDIOVASCULAR: Regular rate and rhythm without murmurs, rubs or gallops. Dialysis catheter left side RESPIRATORY: Breath sounds equal bilaterally, no wheezes rales or rhonchi. ABDOMEN: Soft, nontender. Normoactive bowel sounds all 4 quadrants. No guarding or rebound. EXTREMITIES: Normal range of motion, no clubbing or edema. Neurovascularly intact NEUROLOGICAL: Alert and oriented x4.Normal gait and speech. SKIN: Warm, dry, no laceration, no petechiae, no rashes or lesions. Course Orders Ordered: Discontinued Medications Dextrose (D10w) 100 mls @ 1,200 mls/hr IV PRN PRN PRN Reason: Hypoglycemia Last Infusion: 10/19/24 17:06 Dose: Infused Documented By: Admin: 10/19/24 17:06 Dose: 999 mls/hr Documented By: PARRIS Vital Signs Vital signs: Vital Signs - 8 hr 10/19/24 16:27 Temperature 97.0 F L Pulse Rate 62 Respiratory Rate 16 Blood Pressure 201/98 H Pulse Oximetry 98 Oxygen Delivery Method Room Air Medical Decision Making Lab Data 10/19/24 16:40 10/19/24 17:39 Labs: Lab Results 10/19/24 10/19/24 Range/Units 16:40 17:39 WBC 7.7 (4.5-11.0) X10^3/uL RBC 4.31 L (4.5-5.9) X10^6/uL Hgb 12.8 L (13.5-17.5) g/dL Hct 37.7 L (41-53) % MCV 87.5 (80-100) fL MCH 29.8 (26-34) PG MCHC 34.1 (30-36) % RDW 17.7 H (11.6-14.8) % Plt Count 262 (150-400) X10^3/uL Neut % (Auto) 71.4 (50-75) % Lymph % (Auto) 15.9 L (25-40) % Rogers % (Auto) 6.5 (3-14) % Eos % (Auto) 5.4 H (2-4) % Baso % (Auto) 0.8 (0-2) % Neut # (Auto) 5500 (8742-2800) /uL Lymph # (Auto) 1200 (7091-6664) /uL Rogers # (Auto) 500 (0-900) /uL Eos # (Auto) 400 (0-450) /uL Baso # (Auto) 100 (0-100) /uL Sodium 136 L (137-145) mmol/L Potassium 4.7 (3.4-5.1) mmol/L Chloride 99 (98-107) mmol/L Carbon Dioxide 23 (22-32) mmol/L BUN 39 H (9-20) mg/dL Creatinine 7.38 H (0.66-1.25) mg/dL Estimated GFR 9 L (>60) mL/min BUN/Creatinine Ratio 5.3 L (6-22) Glucose 145 H (70-100) mg/dL Calcium 8.8 (8.4-10.2) mg/dL Total Bilirubin 1.0 (0.2-1.3) mg/dL AST 37 (17-59) IU/L ALT 17 (<50) IU/L Alkaline Phosphatase 59 (38-126) U/L Total Protein 7.6 (6.3-8.2) g/dL Albumin 4.6 (3.5-5.0) g/dL Globulin 3.0 (1.7-4.1) g/dL Albumin/Globulin Ratio 1.5 (1.0-2.8) Point of Care Testing Glucose POC 139 Point of care testing: Point of Care Testing Glucose POC 139 ECG Data Attestation: I personally reviewed and interpreted this ECG as follows: Prior ECG tracings: available for review Interpretation: Normal sinus rhythm rate 56 IN interval 218 QRS [address] depression noted in V6 similar to previous EKGs no new changes today MDM Narrative Medical decision making narrative: Patient 34-year-old male chronic kidney disease on hemodialysis insulin-dependent diabetic presenting today with hypoglycemia. Glucose quickly improved with p.o. intake but also required some D10. He is now eating [employer] and having more food. Glucose has been stable. He did not have much p.o. intake today but this is normal for him. Strongly encouraged him to decrease his Lantus dose tonight. Blood work has been reviewed no leukocytosis or anemia Sodium 136 potassium 4.7 chloride 99 carbon dioxide 23 BUN 39 creatinine 7.39 previously was 5.0 in March of 2024 Glucose 145 Patient awake alert oriented would like to go home glucose is stable and he has had p.o. intake here in the ED Discharge Plan Departure Patient Disposition: Home Clinical Impression: Hypoglycemia Instructions: DI for Hypoglycemia Activity Restrictions/Additional Instructions: *You have been diagnosed with hypoglycemia *What to do: At this time I recommend that you eat small meals regularly to help avoid this problem *Continue to take medications as directed I do recommend that you decrease your Lantus dose tonight to tender 11 units and eat tomorrow., you may go back to your regular dose tomorrow *Follow up with your primary care provider in 2-3 days or call [phone] *Return to ER if you should have increasing confusion persistent low sugar or any new, worsening or concerning symptoms Prescriptions: No Action fluticasone propionate [Flonase Allergy Relief] 50 mcg/actuation spray,suspension 1 spray intranasal Q12H Qty: 16 0RF Rx Instructions: administer into each nostril escitalopram oxalate 10 mg tablet 5 mg PO DAILY Qty: 45 3RF (DME) Glucose: Test Strips 0 .Route .MEDSUPPLY Qty: 100 11RF Dose Instruction: As directed Rx Instructions: Test blood sugars up to 3 times daily ondansetron 4 mg tablet,disintegrating 4 mg PO DAILY PRN (Reason: nausea and vomiting) Qty: 90 0RF (DME) FreeStyle Dilia 2 Natoma Misc See Rx Instructions .Route Qty: 1 4RF Rx Instructions: Use to continuously monitor blood sugars levothyroxine 150 mcg tablet 150 mcg PO QAM Qty: 90 3RF clonidine 0.3 mg/24 hr patch weekly 1 patch transdermal QWEEK Qty: 4 5RF insulin glargine [Basaglar KwikPen U-100 Insulin] 100 unit/mL (3 mL) insulin pen 28 unit SUBCUT QPM Qty: 15 5RF losartan 50 mg tablet 50 mg PO BEDTIME Patient Comments: TAKE ONE TABLET BY MOUTH NIGHTLY AT BEDTIME hydralazine 100 mg tablet 100 mg PO TID Hold Instructions: Patient insists on once daily dosing Patient Comments: TAKE ONE TABLET BY MOUTH THREE TIMES DAILY spironolactone 100 mg tablet 100 mg PO DAILY Qty: 30 0RF carvedilol 25 mg tablet 25 mg PO BID Rx Instructions: must administer with a meal/food cyclobenzaprine 5 mg tablet 5 mg PO TID PRN furosemide 80 mg tablet 80 mg PO BID isosorbide dinitrate 30 mg tablet 30 mg PO BID Rx Instructions: allow nitrate-free interval of 12-14 hrs per 24-hr period sevelamer HCl 800 mg tablet 1,600 mg PO TID Rx Instructions: must administer with a meal/food trazodone 50 mg tablet 50 mg PO BEDTIME PRN insulin aspart U-100 [Novolog FlexPen U-100 Insulin] 100 unit/mL (3 mL) insulin pen 5 unit SUBCUT TID Qty: 15 11RF Rx Instructions: before meals (DME) B-D PEN NEEDLE 8MM Qty: 400 11RF Dose Instruction: As directed Rx Instructions: TO ADMINISTER INSULIN UP TO 4 TIMES A DAY (DME) FreeStyle Dilia 2 Sensor Kit See Rx Instructions .Route Qty: 2 11RF Rx Instructions: Use to continuously monitor blood sugars (DME) pen needle, diabetic [BD Ultra-Fine Neelima Pen Needle] 32 gauge x 5/32 needle See Rx Instructions .ROUTE .MEDSUPPLY Qty: 100 4RF Rx Instructions: to adminster insulin four times daily felodipine 2.5 mg tablet extended release 24 hr 5 mg PO BID PRN omeprazole 20 mg capsule,delayed release(DR/EC) 20 mg PO DAILY Qty: 30 0RF potassium chloride [Klor-Con M10] 10 mEq tablet,ER particles/crystals 10 meq PO DAILY Qty: 14 0RF Referrals: Juaquin Moreland DO [Primary Care Provider] - Stand Alone Forms: Patient Portal/API/Survey
[2024-10-19 17:13] LABS: Add Manual Diff / Slide Review NO; Basophils Absolute Auto 100 /uL (0-100); Basophils Percent Auto 0.8 % (0-2); Eosinophils Absolute Auto 400 /uL (0-450); Eosinophils Percent Auto 5.4 % (2-4); Hematocrit 37.7 % (41-53); Hemoglobin 12.8 g/dL (13.5-17.5); Lymphocytes Absolute Auto 1200 /uL (1100-4500); Lymphocytes Percent Auto 15.9 % (25-40); Mean Corpuscular HGB Conc 34.1 % (30-36); Mean Corpuscular Hemoglobin 29.8 PG (26-34); Mean Corpuscular Volume 87.5 fL (80-100); Monocytes Absolute Auto 500 /uL (0-900); Monocytes Percent Auto 6.5 % (3-14); Neutrophils Absolute Auto 5500 /uL (1500-7000); Neutrophils Percent Auto 71.4 % (50-75); Platelet Count 262 X10^3/uL (150-400); Red Blood Cell Count 4.31 X10^6/uL (4.5-5.9); Red Cell Distribution Width 17.7 % (11.6-14.8); White Blood Cell Count 7.7 X10^3/uL (4.5-11.0)
[2024-10-19 17:58] LABS: Alanine Aminotransferase 17 IU/L (<50); Albumin 4.6 g/dL (3.5-5.0); Albumin Globulin Ratio 1.5 (1.0-2.8); Alkaline Phosphatase 59 U/L (38-126); Aspartate Aminotransferase 37 IU/L (17-59); BUN Creatinine Ratio 5.3 (6-22); Blood Urea Nitrogen 39 mg/dL (9-20); Calcium 8.8 mg/dL (8.4-10.2); Carbon Dioxide 23 mmol/L (22-32); Chloride 99 mmol/L (98-107); Estimated Glomerular Filt Rate 9 mL/min (>60); Glucose 145 mg/dL (70-100); HEMOLYSIS 37 (0-50); Potassium 4.7 mmol/L (3.4-5.1); Sodium 136 mmol/L (137-145); Total Protein 7.6 g/dL (6.3-8.2)
[2024-10-19 18:32] VITALS: BP 189/92; PULSE 57; RESP 16; O2SAT 98
== END 2024-10-19 18:34 | disposition home or self-care (01) ==
PROVIDERS: Emergency Provider Emergency Medicine; PCP Family Medicine
DX: E16.2 Hypoglycemia, unspecified (principal); E10.9 Type 1 diabetes mellitus without complications; Z79.4 Long term (current) use of insulin
CPT/HCPCS: 80053; 82962; 85025; 93005; 96374; 99283; 99284

== ENCOUNTER 2025-01-30 19:42 | Emergency (ER) | payer MEDICARE, MEDICAID, SELFPAY ==
[2025-01-30 19:46] VITALS: BP 185/87; PULSE 71; RESP 20; TEMP 37.9; O2SAT 99; BMI 21.0
--- NOTE | 2025-01-30 20:09 | DI.RAD.S_ITS ---
PROCEDURE: XR CHEST 2V INDICATIONS: blood in sputum TECHNIQUE: 2 views of the chest were acquired. COMPARISON: [facility], CR, XR CHEST 1V, 08/14/2024, 17:09. FINDINGS: Surgical changes and devices: Left-sided unchanged Lungs and pleura: Lungs are clear. No pleural effusions or pneumothorax. Mediastinum: Mediastinal contours are normal. Heart size is enlarged. Bones and chest wall: No suspicious bony abnormalities. Soft tissues appear unremarkable. IMPRESSION: No acute pulmonary process. Dictated by: Nely Salazar M.D. on 01/30/2025 at 20:28 Approved by: Nely Salazar M.D. on 01/30/2025 at 20:29
--- NOTE | 2025-01-30 23:24 | ED.GENADULT ---
HPI - General Adult General Chief complaint: Upper Respiratory Symptoms Stated complaint: Coughing up red blood Time Seen by Provider: 01/30/25 23:13 Source: patient Mode of arrival: Ambulatory History of Present Illness HPI narrative: 34-year-old type 1 diabetic on dialysis Sunday, hypertension who recently completed antibiotics for dental infection. Had an episode of minor aspiration while eating as well as some mild increased congestion from seasonal allergies. About 10 minutes after feeling like he aspirated slightly, he was clearing his lungs he had bit of bright red blood with coughing. The red blood has cleared completely, you have no fevers or chills. No respiratory distress no persistent cough Related Data Home Medications Medication Instructions Recorded Confirmed hydralazine 100 mg tablet 100 mg PO TID 11/24/22 03/26/24 losartan 50 mg tablet 50 mg PO BEDTIME 11/24/22 03/26/24 carvedilol 25 mg tablet 25 mg PO BID 01/18/23 03/26/24 cyclobenzaprine 5 mg tablet 5 mg PO TID PRN 01/18/23 03/26/24 furosemide 80 mg tablet 80 mg PO BID 01/18/23 03/26/24 isosorbide dinitrate 30 mg tablet 30 mg PO BID 01/18/23 03/26/24 sevelamer HCl 800 mg tablet 1,600 mg PO TID 01/18/23 03/26/24 trazodone 50 mg tablet 50 mg PO BEDTIME PRN 01/18/23 03/26/24 felodipine 2.5 mg tablet,extended 5 mg PO BID PRN 03/26/24 03/26/24 release 24 hr Previous Rx's Medication Instructions Recorded Glucose: Test Strips #100 ea 01/06/19 spironolactone 100 mg tablet 100 mg PO DAILY #30 tabs 12/06/22 ondansetron 4 mg disintegrating 4 mg PO DAILY PRN nausea and 04/10/23 tablet vomiting #90 tabs B-D PEN NEEDLE #400 ea 08/20/23 insulin aspart U-100 100 unit/mL 5 unit (0.05 mL) SUBCUT TID #15 mL 08/20/23 (3 mL) subcutaneous pen (Novolog FlexPen U-100 Insulin aspart) flash glucose scanning reader #1 ea 08/31/23 (FreeStyle Dilia 2 [place]) flash glucose sensor (FreeStyle #2 ea 10/19/23 Dilia 2 Sensor kit) pen needle, diabetic 32 gauge x #100 ea 10/19/23 (BD Ultra-Fine Neelima Pen Needle) omeprazole 20 mg capsule,delayed 20 mg PO DAILY #30 caps 10/22/23 release potassium chloride 10 mEq 10 meq PO DAILY #14 tabs 10/31/23 tablet,extended release(part/cryst) (Klor-Con M) clonidine 0.3 mg/24 hr weekly 1 patch transdermal QWEEK #4 ea 11/05/23 transdermal patch fluticasone propionate 50 1 spray intranasal Q12H #16 grams 03/06/24 mcg/actuation nasal spray,suspension (Flonase Allergy Relief) insulin glargine 100 unit/mL (3 28 unit (0.28 mL) SUBCUT QPM #15 mL 04/30/24 mL) subcutaneous pen (Basaglar KwikPen U-100 Insulin) escitalopram oxalate 10 mg tablet 5 mg (1/2 x 10 mg) PO DAILY #45 08/11/24 tabs levothyroxine 150 mcg tablet 150 mcg PO QAM #90 tabs 01/19/25 Allergies Allergy/AdvReac Type Severity Reaction Status Date / Time atorvastatin Allergy Mild kidney Verified 08/14/24 16:25 pain chlorhexidine AdvReac Mild Rash Verified 08/14/24 16:25 apple juice AdvReac Uncoded 08/14/24 16:25 Review of Systems Review of Systems Narrative: Pertinent positive and negative findings as per HPI Patient History Medical History Current mild episode of major depressive disorder Benign essential HTN Breast mass in male Mastodynia of left breast Palpitations Diabetes mellitus type 1 Shingles Sleep apnea Seasonal allergies Post traumatic stress disorder (PTSD) Restless leg syndrome Chronic back pain Chicken pox (~1996) Hearing loss Hypothyroidism (~1995) Depression Anxiety Ankle pain Acne Dental caries Surgical History History of repair of pyloric stenosis Family History Father Age: 56 Cancer Hypertension Social History alcohol intake: current substance use type: marijuana Smoking Status: Former smoker tobacco type: cigarettes alcohol intake frequency: a few times a month Exam Initial Vital Signs Initial Vital Signs: Vital Signs Temperature 100.2 F H 01/30/25 19:46 Pulse Rate 71 01/30/25 19:46 Respiratory Rate 20 01/30/25 19:46 Blood Pressure 185/87 H 01/30/25 19:46 Pulse Oximetry 99 01/30/25 19:46 Oxygen Delivery Method Room Air 01/30/25 19:46 General: Alert appropriate in no acute distress HEENT: Posterior pharynx is slightly erythematous but otherwise unremarkable Respiratory: Able to speak in full sentences, no obvious respiratory distress. No wheezing, full and unrestricted respiratory movement, no rhonchi Skin: No obvious rashes, warm and dry Neurologic: Grossly intact no obvious asymmetries or abnormalities Psych: appropriate insight and affect, cooperative Course Orders Ordered: ED Orders 01/30/25 20:09 XR chest 2V Stat Vital Signs Vital signs: Vital Signs - 8 hr 01/30/25 19:46 Temperature 100.2 F H Pulse Rate 71 Respiratory Rate 20 Blood Pressure 185/87 H Pulse Oximetry 99 Oxygen Delivery Method Room Air Medical Decision Making [facility] Narrative Medical decision making narrative: 34-year-old gentleman with type 1 diabetes difficult to control blood pressure dialysis patient who had single episode of hemoptysis. It was associated with fairly significant coughing that he related to minor aspiration and seasonal allergies. Lungs are completely clear, chest x-ray is unremarkable, labs are reassuring. Physical exam does not suggest diminished air movement, rales, rhonchi or wheeze. There was no evidence of pneumonia, sinus infection, obviously ruptured blood vessels, chest x-ray does not suggest mass or tumor. Findings reviewed with the patient. Oxygen saturations are appropriate. He is no longer coughing, comfortably breathing and safe for discharge with no additional workup at this time. Discharge Plan Departure Patient Disposition: Home Clinical Impression: Hemoptysis, Diabetes mellitus type 1, ESRD (end stage renal disease) on dialysis Instructions: DI for Hemoptysis Activity Restrictions/Additional Instructions: Thank you for coming in today I suspect the the blood that you were coughing up is from a small broken blood vessel in the back of your throat. There was no evidence of pneumonia, significant aspiration, severe respiratory distress, no lung masses or tumors. If you have another episode, develop an more concerning cough with sputum or feel like you are getting sick short of breath you do need to be re-evaluated Prescriptions: No Action fluticasone propionate [Flonase Allergy Relief] 50 mcg/actuation spray,suspension 1 spray intranasal Q12H Qty: 16 0RF Rx Instructions: administer into each nostril escitalopram oxalate 10 mg tablet 5 mg PO DAILY Qty: 45 3RF (DME) Glucose: Test Strips 0 .Route .MEDSUPPLY Qty: 100 11RF Dose Instruction: As directed Rx Instructions: Test blood sugars up to 3 times daily ondansetron 4 mg tablet,disintegrating 4 mg PO DAILY PRN (Reason: nausea and vomiting) Qty: 90 0RF (DME) FreeStyle Dilia 2 [place] Misc See Rx Instructions .Route Qty: 1 4RF Rx Instructions: Use to continuously monitor blood sugars clonidine 0.3 mg/24 hr patch weekly 1 patch transdermal QWEEK Qty: 4 5RF insulin glargine [Basaglar KwikPen U-100 Insulin] 100 unit/mL (3 mL) insulin pen 28 unit SUBCUT QPM Qty: 15 5RF levothyroxine 150 mcg tablet 150 mcg PO QAM Qty: 90 0RF losartan 50 mg tablet 50 mg PO BEDTIME Patient Comments: TAKE ONE TABLET BY MOUTH NIGHTLY AT BEDTIME hydralazine 100 mg tablet 100 mg PO TID Hold Instructions: Patient insists on once daily dosing Patient Comments: TAKE ONE TABLET BY MOUTH THREE TIMES DAILY spironolactone 100 mg tablet 100 mg PO DAILY Qty: 30 0RF carvedilol 25 mg tablet 25 mg PO BID Rx Instructions: must administer with a meal/food cyclobenzaprine 5 mg tablet 5 mg PO TID PRN furosemide 80 mg tablet 80 mg PO BID isosorbide dinitrate 30 mg tablet 30 mg PO BID Rx Instructions: allow nitrate-free interval of 12-14 hrs per 24-hr period sevelamer HCl 800 mg tablet 1,600 mg PO TID Rx Instructions: must administer with a meal/food trazodone 50 mg tablet 50 mg PO BEDTIME PRN insulin aspart U-100 [Novolog FlexPen U-100 Insulin] 100 unit/mL (3 mL) insulin pen 5 unit SUBCUT TID Qty: 15 11RF Rx Instructions: before meals (DME) B-D PEN NEEDLE 8MM Qty: 400 11RF Dose Instruction: As directed Rx Instructions: TO ADMINISTER INSULIN UP TO 4 TIMES A DAY (DME) FreeStyle Dilia 2 Sensor Kit See Rx Instructions .Route Qty: 2 11RF Rx Instructions: Use to continuously monitor blood sugars (DME) pen needle, diabetic [BD Ultra-Fine Neelima Pen Needle] 32 gauge x 5/32 needle See Rx Instructions .ROUTE .MEDSUPPLY Qty: 100 4RF Rx Instructions: to adminster insulin four times daily felodipine 2.5 mg tablet extended release 24 hr 5 mg PO BID PRN omeprazole 20 mg capsule,delayed release(DR/EC) 20 mg PO DAILY Qty: 30 0RF potassium chloride [Klor-Con M10] 10 mEq tablet,ER particles/crystals 10 meq PO DAILY Qty: 14 0RF Referrals: Juaquin Moreland DO [Primary Care Provider] - Stand Alone Forms: Patient Portal/API/Survey
[2025-01-30 23:54] VITALS: BP 173/81; PULSE 72; RESP 16; O2SAT 98
== END 2025-01-30 23:55 | disposition home or self-care (01) ==
PROVIDERS: Emergency Provider Emergency Medicine; PCP Family Medicine
DX: R04.2 Hemoptysis (principal); E10.22 Type 1 diabetes mellitus with diabetic chronic kidney disease; N18.6 End stage renal disease; Z99.2 Dependence on renal dialysis
CPT/HCPCS: 71046; 99281; 99283

== ENCOUNTER → 2025-06-26 13:57 | Outpatient (CLI) | payer MEDICARE, MEDICAID, SELFPAY ==
--- NOTE | 2025-06-26 14:03 | DI.RAD.S_ITS ---
PROCEDURE: XR CHEST 2V INDICATIONS: Cough TECHNIQUE: 2 views of the chest were acquired. COMPARISON: [facility], CR, XR CHEST 2V, 01/30/2025, 20:07. [facility], CR, XR CHEST 1V, 08/14/2024, 17:09. FINDINGS AND IMPRESSION: There is a questionable ill-defined opacity in the right upper lung. Peribronchial thickening also seen, possibly bronchitis. Consider future imaging surveillance to assess for resolution. No pleural effusions. Left dual lumen central line with tip projecting over the cavoatrial junction. Heart size is at the upper limit of normal. Degenerative osseous changes. Dictated by: Jose Ronquillo M.D. on 06/26/2025 at 14:34 Approved by: Jose Ronquillo M.D. on 06/26/2025 at 14:35
== END ==
PROVIDERS: PCP Family Medicine; Referring Provider Nurse Practitioner Family; Visit Provider Nurse Practitioner Family
DX: R05.9 Cough, unspecified (principal)
CPT/HCPCS: 71046

== ENCOUNTER 2025-07-19 13:36 | Emergency (ER) | payer MEDICARE, MEDICAID, SELFPAY ==
[2025-07-19 13:56] VITALS: BP 113/57; PULSE 60; RESP 18; TEMP 37.2; O2SAT 100; BMI 21.5
[2025-07-19 14:11] VITALS: BP 130/67; PULSE 65; RESP 19; O2SAT 98
[2025-07-19 14:30] VITALS: BP 133/68; PULSE 61; O2SAT 99
[2025-07-19 15:00] VITALS: BP 148/71; PULSE 60; O2SAT 100
--- NOTE | 2025-07-19 15:13 | EKG_ITS ---
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
--- NOTE | 2025-07-19 15:13 | DI.RAD.S_ITS ---
PROCEDURE: XR CHEST 1V INDICATIONS: sob, low hemoglobin. TECHNIQUE: One view of the chest was acquired. COMPARISON: [facility], CR, XR CHEST 2V, 01/30/2025, 20:07. [facility], CR, XR CHEST 1V, 08/14/2024, 17:09. [facility], CR, XR CHEST 2V, 06/26/2025, 13:58. FINDINGS: Surgical changes and devices: A stable left-sided dialysis catheter is seen. Lungs and pleura: Lungs are clear. No pleural effusions or pneumothorax. Mediastinum: Mediastinal contours appear normal. Heart size is mildly enlarged. Bones and chest wall: No suspicious bony lesions. Overlying soft tissues appear unremarkable. IMPRESSION: Mild cardiomegaly. Clear lungs. Stable dialysis catheter. Dictated by: Brodie Jean M.D. on 07/19/2025 at 14:44 Approved by: Brodie Jean M.D. on 07/19/2025 at 14:45
--- NOTE | 2025-07-19 15:14 | ED.WEAKNESS ---
HPI - Weakness General Chief complaint: Weakness Stated complaint: EMS rec: mehreen hemog low; on dialysis Time Seen by Provider: 07/19/25 15:03 Source: patient, RN notes reviewed and old records reviewed Mode of arrival: Wheelchair Limitations: no limitations History of Present Illness HPI Narrative: [age] year old male with a history of insulin-dependent diabetes since age 6 months, hypertension, CHF, end-stage renal disease on dialysis who presents with complaint of feeling weak, describes feeling a little bit short of breath. Denies any fevers. States he always feels cold. Denies any chest pain. States he felt a little bit short of breath earlier today. Was diagnosed with a upper respiratory infection started on 5 days of oral antibiotics about 2 weeks ago which he has completed. States he had a chest x-ray of the walk-in clinic at that time. Denies any nausea or vomiting. States he has had some mild constipation but stooling regularly. No black or bloody stools. He does still make small amount of urine he has not noticed any changes or discoloration. Notes he was told his hemoglobin was low in his last 2 dialysis visits. He states he has never had a blood transfusion but has had similar issue in the past. He is unsure if he has ever received EPO or similar medication. Related Data Home Medications ?Medication ?Instructions ?Recorded ?Confirmed hydralazine 100 mg tablet 100 mg PO TID 11/24/22 06/26/25 Held on 12/07/22. Instructions: Patient insists on once daily dosing carvedilol 25 mg tablet 25 mg PO BID 01/18/23 06/26/25 furosemide 80 mg tablet 80 mg PO BID 01/18/23 06/26/25 felodipine 2.5 mg tablet,extended 5 mg PO BID PRN 03/26/24 06/26/25 release 24 hr clonidine HCl 0.1 mg tablet 0.1 mg PO 3XD PRN blood pressure 04/06/25 06/26/25 insulin degludec 100 unit/mL (3 13 unit SUBCUT DAILY 04/06/25 06/26/25 mL) subcutaneous pen insulin lispro 100 unit/mL 1 - 20 unit SUBCUT 3XD 04/06/25 06/26/25 subcutaneous pen isosorbide mononitrate 30 mg 30 mg PO BID PRN 04/06/25 06/26/25 tablet,extended release 24 hr losartan 50 mg tablet 50 mg PO BID 04/06/25 06/26/25 omeprazole 40 mg capsule,delayed 40 mg PO DAILY 04/06/25 06/26/25 release sennosides 8.6 mg tablet (Jacinta-reena) 17.2 mg PO DAILY 04/06/25 06/26/25 spironolactone 25 mg tablet 25 mg PO BID 04/06/25 06/26/25 prazosin 1 mg capsule 1 mg PO ONCE PM 06/26/25 06/26/25 Previous Rx's ?Medication ?Instructions ?Recorded Glucose: Test Strips #100 ea 01/06/19 B-D PEN NEEDLE #400 ea 08/20/23 flash glucose scanning reader #1 ea 08/31/23 (FreeStyle Dilia 2 [place]) flash glucose sensor (FreeStyle #2 ea 10/19/23 Dilia 2 Sensor kit) pen needle, diabetic 32 gauge x #100 ea 10/19/23 (BD Ultra-Fine Neelima Pen Needle) clonidine 0.3 mg/24 hr weekly 1 patch transdermal QWEEK #4 ea 11/05/23 transdermal patch escitalopram oxalate 10 mg tablet 5 mg (1/2 x 10 mg) PO DAILY #45 08/11/24 tabs levothyroxine 150 mcg tablet 150 mcg PO QAM #90 tabs 04/20/25 doxycycline hyclate 100 mg capsule 100 mg PO BID #10 caps 06/26/25 Allergies Allergy/AdvReac Type Severity Reaction Status Date / Time atorvastatin Allergy Mild kidney Verified 07/19/25 13:57 pain chlorhexidine AdvReac Mild Rash Verified 07/19/25 13:57 apple juice AdvReac Uncoded 07/19/25 13:57 Review of Systems Review of Systems ROS Unobtainable: All systems reviewed & are unremarkable except as noted in HPI and below Patient History Medical History Current mild episode of major depressive disorder Benign essential HTN Breast mass in male Mastodynia of left breast Palpitations Diabetes mellitus type 1 Shingles Sleep apnea Seasonal allergies Post traumatic stress disorder (PTSD) Restless leg syndrome Chronic back pain Chicken pox (~1996) Hearing loss Hypothyroidism (~1995) Depression Anxiety Ankle pain Acne Dental caries Surgical History History of repair of pyloric stenosis Family History Father Age: 57 Cancer Hypertension Social History Smoking Status: Former smoker alcohol intake: current substance use type: marijuana Smoking Status: Former smoker tobacco type: cigarettes alcohol intake frequency: a few times a month Exam Narrative Exam Narrative: GENERAL: Alert and oriented x three, male in mild distress HEENT: Head normocephalic, atraumatic, EOMI, pupils reactive, positive or conjunctival pallor, face symmetric, moist mucous membranes NECK: Supple, full range of motion CARDIOVASCULAR: Regular rate and rhythm without murmurs, rubs or gallops. No JVD. No edema bilateral lower extremities. Patient has not lady catheter in the left upper chest. RESPIRATORY: Breath sounds equal bilaterally, no wheezes rales or rhonchi. ABDOMEN: Soft, nontender. She had nondistended. Normoactive bowel sounds all 4 quadrants. No guarding or rebound, rigidity, no mass : No CVA tenderness EXTREMITIES: Normal range of motion, no clubbing or edema. Neurovascularly intact NEUROLOGICAL: Cranial nerves II through XII grossly intact. Moving all extremities SKIN: Warm, dry, no petechiae, no rashes or lesions. Initial Vital Signs Initial Vital Signs: Vital Signs Temperature 98.9 F 07/19/25 13:56 Pulse Rate 60 07/19/25 13:56 Respiratory Rate 18 07/19/25 13:56 Blood Pressure 113/57 L 07/19/25 13:56 Pulse Oximetry 100 07/19/25 13:56 Oxygen Delivery Method Room Air 07/19/25 13:56 Course Orders Ordered: ED Orders 07/19/25 15:13 Chest [XR chest 1V] Stat EKG-12 Lead Stat 07/19/25 15:30 CBC Auto Diff [Complete Blood Count AUTO DIFF] Stat CMP [Comprehensive Metabolic Panel] Stat Lipase Stat MAG [Magnesium] Stat PHOS [Phosphorous] Stat Vital Signs Vital signs: Vital Signs - 8 hr 07/19/25 15:00 07/19/25 15:00 07/19/25 16:47 Pulse Rate 60 64 Respiratory Rate 14 Blood Pressure 148/71 H 161/81 H Pulse Oximetry 100 100 Oxygen Delivery Method Room Air MDM - Weakness Lab Data 07/19/25 15:30 07/19/25 15:30 Labs: Lab Results 07/19/25 Range/Units 15:30 WBC 6.3 (4.5-11.0) X10^3/uL RBC 3.17 L (4.5-5.9) X10^6/uL Hgb 9.7 L (13.5-17.5) g/dL Hct 27.3 L (41-53) % MCV 86.3 (80-100) fL MCH 30.5 (26-34) PG MCHC 35.4 (30-36) % RDW 14.8 (11.6-14.8) % Plt Count 195 (150-400) X10^3/uL Neut % (Auto) 68.1 (50-75) % Lymph % (Auto) 14.1 L (25-40) % [place] % (Auto) 9.0 (3-14) % Eos % (Auto) 8.1 H (2-4) % Baso % (Auto) 0.7 (0-2) % Neut # (Auto) 4300 (5931-8444) /uL Lymph # (Auto) 900 L (0142-3001) /uL [place] # (Auto) 600 (0-900) /uL Eos # (Auto) 500 H (0-450) /uL Baso # (Auto) 0 (0-100) /uL Sodium 134 L (137-145) mmol/L Potassium 3.7 (3.4-5.1) mmol/L Chloride 97 L (98-107) mmol/L Carbon Dioxide 25 (22-32) mmol/L BUN 11 (9-20) mg/dL Creatinine 4.93 H (0.66-1.25) mg/dL Estimated GFR 15 L (>60) mL/min BUN/Creatinine Ratio 2.2 L (6-22) Glucose 160 H (70-99) mg/dL Calcium 9.3 (8.4-10.2) mg/dL Phosphorus 4.4 (2.5-4.5) mg/dL Magnesium 2.1 (1.6-2.3) mg/dL Total Bilirubin 0.6 (0.2-1.3) mg/dL AST 29 (17-59) IU/L ALT 14 (<50) IU/L Alkaline Phosphatase 47 (38-126) U/L Total Protein 7.2 (6.3-8.2) g/dL Albumin 4.4 (3.5-5.0) g/dL Globulin 2.8 (1.7-4.1) g/dL Albumin/Globulin Ratio 1.6 (1.0-2.8) Lipase 15 L (23-300) U/L [facility] Narrative Medical decision making narrative: Labs shows a hemoglobin 9.7 platelets are 195 white count 6.3, INR is 1.1 creatinine is 4.93 improved from September 2024 when he was 7.38 electrolytes are overall fairly appropriate with a sodium 134 chloride 97 potassium 3.7 CO2 is 25 with a BUN 11, Mag and phos are normal range, LFTs are normal lipase is normal. EKG sinus rhythm first-degree AV block possible left atrial enlargement rate of 62 QRS of 224 QRS of 82 QTC 481 appears similar to prior on 09/29/2024 Chest x-ray shows mild cardiomegaly, clear lung stable dialysis catheter. Reviewed findings with the patient, he does not appear fluid overloaded and went away way. Vitals here has been appropriate. We will discharge home but with return precautions. Discharge Plan Departure Patient Disposition: Home Clinical Impression: Anemia Activity Restrictions/Additional Instructions: Follow up with your dialysis team. Your hemoglobin today was 9.7. Your electrolytes were overall appropriate. Please return if you have new or worsening symptoms, any new chest pain, increasing shortness of breath any lightheadedness or passing out, vomiting, any new swelling in your extremities or any other new or concerning changes. Prescriptions: No Action prazosin 1 mg capsule 1 mg PO ONCE PM escitalopram oxalate 10 mg tablet 5 mg PO DAILY Qty: 45 3RF (DME) Glucose: Test Strips 0 .Route .MEDSUPPLY Qty: 100 11RF Dose Instruction: As directed Rx Instructions: Test blood sugars up to 3 times daily (DME) FreeStyle Dilia 2 [place] Misc See Rx Instructions .Route Qty: 1 4RF Rx Instructions: Use to continuously monitor blood sugars clonidine 0.3 mg/24 hr patch weekly 1 patch transdermal QWEEK Qty: 4 5RF levothyroxine 150 mcg tablet 150 mcg PO QAM Qty: 90 3RF doxycycline hyclate 100 mg capsule 100 mg PO BID Qty: 10 0RF hydralazine 100 mg tablet 100 mg PO TID Patient Comments: TAKE ONE TABLET BY MOUTH THREE TIMES DAILY losartan 50 mg tablet 50 mg PO BID Patient Comments: TAKE ONE TABLET BY MOUTH NIGHTLY AT BEDTIME carvedilol 25 mg tablet 25 mg PO BID Rx Instructions: must administer with a meal/food furosemide 80 mg tablet 80 mg PO BID (DME) B-D PEN NEEDLE 8MM Qty: 400 11RF Dose Instruction: As directed Rx Instructions: TO ADMINISTER INSULIN UP TO 4 TIMES A DAY (DME) FreeStyle Dilia 2 Sensor Kit See Rx Instructions .Route Qty: 2 11RF Rx Instructions: Use to continuously monitor blood sugars (DME) pen needle, diabetic [BD Ultra-Fine Neelima Pen Needle] 32 gauge x 5/32 needle See Rx Instructions .ROUTE .MEDSUPPLY Qty: 100 4RF Rx Instructions: to adminster insulin four times daily felodipine 2.5 mg tablet extended release 24 hr 5 mg PO BID PRN clonidine HCl 0.1 mg tablet 0.1 mg PO 3XD PRN (Reason: blood pressure) isosorbide mononitrate 30 mg tablet extended release 24 hr 30 mg PO BID PRN insulin lispro 100 unit/mL insulin pen 1 - 20 unit SUBCUT 3XD insulin degludec 100 unit/mL (3 mL) insulin pen 13 unit SUBCUT DAILY sennosides [Jacinta-reena] 8.6 mg tablet 17.2 mg PO DAILY omeprazole 40 mg capsule,delayed release(DR/EC) 40 mg PO DAILY spironolactone 25 mg tablet 25 mg PO BID Referrals: Juaquin Moreland DO [Primary Care Provider, Family Practice] Stand Alone Forms: Patient Portal/API
[2025-07-19 15:38] LABS: Add Manual Diff / Slide Review NO; Hematocrit 27.3 % (41-53); Hemoglobin 9.7 g/dL (13.5-17.5); Lymphocytes Absolute Auto 900 /uL (1100-4500); Mean Corpuscular HGB Conc 35.4 % (30-36); Mean Corpuscular Hemoglobin 30.5 PG (26-34); Mean Corpuscular Volume 86.3 fL (80-100); Platelet Count 195 X10^3/uL (150-400)
[2025-07-19 16:22] LABS: Alanine Aminotransferase 14 IU/L (<50); Albumin 4.4 g/dL (3.5-5.0); Albumin Globulin Ratio 1.6 (1.0-2.8); Alkaline Phosphatase 47 U/L (38-126); Blood Urea Nitrogen 11 mg/dL (9-20); Calcium 9.3 mg/dL (8.4-10.2); Carbon Dioxide 25 mmol/L (22-32); Chloride 97 mmol/L (98-107); Estimated Glomerular Filt Rate 15 mL/min (>60); Globulin 2.8 g/dL (1.7-4.1); Glucose 160 mg/dL (70-99); HEMOLYSIS < 15 (0-50); Lipase 15 U/L (23-300); Magnesium 2.1 mg/dL (1.6-2.3); Phosphorous 4.4 mg/dL (2.5-4.5); Potassium 3.7 mmol/L (3.4-5.1); Sodium 134 mmol/L (137-145); Total Protein 7.2 g/dL (6.3-8.2)
[2025-07-19 16:47] VITALS: BP 161/81; PULSE 64; RESP 14; O2SAT 100
== END 2025-07-19 16:50 | disposition home or self-care (01) ==
PROVIDERS: Emergency Provider Emergency Medicine; PCP Family Medicine
DX: D64.9 Anemia, unspecified (principal); R06.02 Shortness of breath; I10 Essential (primary) hypertension; I50.9 Heart failure, unspecified; N18.6 End stage renal disease; Z99.2 Dependence on renal dialysis; E10.9 Type 1 diabetes mellitus without complications; Z79.4 Long term (current) use of insulin
CPT/HCPCS: 71045; 80053; 83690; 83735; 84100; 85025; 93005; 99281; 99284

== ENCOUNTER 2025-10-09 12:26 | Emergency (ER) | payer MEDICARE, MEDICAID, SELFPAY ==
[2025-10-09] VITALS (33 sets, daily range): BP systolic 124–212; BP diastolic 68–105; PULSE 63–80; RESP 11–25; TEMP 36.9; O2SAT 94–100; BMI 21.4
--- NOTE | 2025-10-09 13:36 | EKG_ITS ---
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
--- NOTE | 2025-10-09 13:36 | DI.RAD.S_ITS ---
PROCEDURE: XR CHEST 1V INDICATIONS: sob TECHNIQUE: One view of the chest was acquired. COMPARISON: [facility], , XR CHEST 1V, 07/19/2025, 15:21. FINDINGS: Surgical changes and devices: Tunneled left chest dialysis catheter in satisfactory position. Lungs and pleura: Lungs are clear. No pleural effusions or pneumothorax. Mediastinum: Mediastinal contours appear normal. Heart size is mildly enlarged. Bones and chest wall: No suspicious bony lesions. Overlying soft tissues appear unremarkable. IMPRESSION: No significant volume overload noted. Dictated by: Francisco Mccann M.D. on 10/09/2025 at 14:56 Approved by: Francisco Mccann M.D. on 10/09/2025 at 14:57
[2025-10-09 14:08] LABS: Add Manual Diff / Slide Review NO; Hematocrit 38.8 % (41-53); Hemoglobin 13.5 g/dL (13.5-17.5); Lymphocytes Absolute Auto 1100 /uL (1100-4500); Mean Corpuscular HGB Conc 34.7 % (30-36); Mean Corpuscular Hemoglobin 29.8 PG (26-34); Mean Corpuscular Volume 85.7 fL (80-100); Platelet Count 177 X10^3/uL (150-400)
[2025-10-09 14:19] LABS: Alanine Aminotransferase 19 IU/L (<50); Albumin 5.1 g/dL (3.5-5.0); Albumin Globulin Ratio 1.5 (1.0-2.8); Alkaline Phosphatase 52 U/L (38-126); Blood Urea Nitrogen 22 mg/dL (9-20); Calcium 9.3 mg/dL (8.4-10.2); Carbon Dioxide 24 mmol/L (22-32); Chloride 97 mmol/L (98-107); Estimated Glomerular Filt Rate 13 mL/min (>60); Globulin 3.5 g/dL (1.7-4.1); Glucose 177 mg/dL (70-99); HEMOLYSIS 18 (0-50); Potassium 5.0 mmol/L (3.4-5.1); Sodium 136 mmol/L (137-145); Total Protein 8.6 g/dL (6.3-8.2)
[2025-10-09 14:31] LABS: Troponin I 0.029 ng/mL (0.01-0.034)
--- NOTE | 2025-10-09 15:42 | ED.SOB ---
HPI - SOB/Dyspnea General Chief Complaint: Shortness of Breath/Dyspnea Stated Complaint: SOB, faint, numbness/tingling, on dialysis Time Seen by Provider: 10/09/25 13:06 Source: patient Mode of arrival: Wheelchair Limitations: no limitations History of Present Illness HPI Narrative: 35 male presents for fatigue and shortness of breath. Past medical history significant for anemia, diabetes mellitus type 1, CKD on dialysis (TWSa, last dialysis session yesterday), hypertension, hypothyroidism. Patient was in his usual state of health yesterday states that his house recently tested positive for carbon monoxide secondary to gas leak and he is concerned that his shortness of breath is due to carbon monoxide poisoning. He reports whole-body weakness, fatigue, and shortness of breath that started today. Sister is at bedside who corroborated/collaborated with story. Denies headache, visual disturbances, ataxia, syncope. No denies fevers, chills, nausea, vomiting. No chest pain, diaphoresis. Related Data Home Medications ?Medication ?Instructions ?Recorded ?Confirmed hydralazine 100 mg tablet 100 mg PO TID 11/24/22 06/26/25 Held on 12/07/22. Instructions: Patient insists on once daily dosing carvedilol 25 mg tablet 25 mg PO BID 01/18/23 06/26/25 furosemide 80 mg tablet 80 mg PO BID 01/18/23 06/26/25 felodipine 2.5 mg tablet,extended 5 mg PO BID PRN 03/26/24 06/26/25 release 24 hr clonidine HCl 0.1 mg tablet 0.1 mg PO 3XD PRN blood pressure 04/06/25 06/26/25 insulin degludec 100 unit/mL (3 13 unit SUBCUT DAILY 04/06/25 06/26/25 mL) subcutaneous pen insulin lispro 100 unit/mL 1 - 20 unit SUBCUT 3XD 04/06/25 06/26/25 subcutaneous pen isosorbide mononitrate 30 mg 30 mg PO BID PRN 04/06/25 06/26/25 tablet,extended release 24 hr losartan 50 mg tablet 50 mg PO BID 04/06/25 06/26/25 omeprazole 40 mg capsule,delayed 40 mg PO DAILY 04/06/25 06/26/25 release sennosides 8.6 mg tablet (Jacinta-reena) 17.2 mg PO DAILY 04/06/25 06/26/25 spironolactone 25 mg tablet 25 mg PO BID 04/06/25 06/26/25 prazosin 1 mg capsule 1 mg PO ONCE PM 06/26/25 06/26/25 Previous Rx's ?Medication ?Instructions ?Recorded Glucose: Test Strips #100 ea 01/06/19 B-D PEN NEEDLE #400 ea 08/20/23 flash glucose scanning reader #1 ea 08/31/23 (FreeStyle Dilia 2 Eden) flash glucose sensor (FreeStyle #2 ea 10/19/23 Dilia 2 Sensor kit) pen needle, diabetic 32 gauge x #100 ea 10/19/23 (BD Ultra-Fine Neelima Pen Needle) clonidine 0.3 mg/24 hr weekly 1 patch transdermal QWEEK #4 ea 11/05/23 transdermal patch escitalopram oxalate 10 mg tablet 5 mg (1/2 x 10 mg) PO DAILY #45 08/11/24 tabs levothyroxine 150 mcg tablet 150 mcg PO QAM #90 tabs 04/20/25 doxycycline hyclate 100 mg capsule 100 mg PO BID #10 caps 06/26/25 Allergies Allergy/AdvReac Type Severity Reaction Status Date / Time atorvastatin Allergy Mild kidney Verified 10/09/25 12:37 pain chlorhexidine AdvReac Mild Rash Verified 10/09/25 12:37 apple juice AdvReac Uncoded 10/09/25 12:37 Review of Systems Review of Systems Narrative: See HPI. Patient History Medical History Current mild episode of major depressive disorder Benign essential HTN Breast mass in male Mastodynia of left breast Palpitations Diabetes mellitus type 1 Shingles Sleep apnea Seasonal allergies Post traumatic stress disorder (PTSD) Restless leg syndrome Chronic back pain Chicken pox (~1996) Hearing loss Hypothyroidism (~1995) Depression Anxiety Ankle pain Acne Dental caries Surgical History History of repair of pyloric stenosis Family History Father Age: 57 Cancer Hypertension Social History Smoking Status: Former smoker alcohol intake: current substance use type: marijuana Smoking Status: Former smoker tobacco type: cigarettes alcohol intake frequency: a few times a month Exam Narrative Exam Narrative: Vitals: Reviewed by myself, within normal range. Gen: Well-developed, skinny, pale, appears fatigued, no acute distress Eyes: No scleral icterus, EOMI Cards: Regular rate, no murmurs, rubs, gallops Pulm: Normal respiratory rate, clear to auscultation bilaterally Abd: Soft, mildly distended, no rebound or guarding. Skin/chest: Dialysis catheter in left anterior chest wall, no surrounding erythema, edema, or evidence of infection. MSK: No peripheral edema bilaterally Neuro: A&O x 4, cranial nerves grossly intact Psych: Appropriate Initial Vital Signs Initial Vital Signs: Vital Signs Temperature 98.5 F 10/09/25 12:37 Pulse Rate 68 10/09/25 12:37 Respiratory Rate 14 10/09/25 12:37 Blood Pressure 173/76 H 10/09/25 12:37 Pulse Oximetry 94 10/09/25 12:37 Oxygen Delivery Method Room Air 10/09/25 12:37 Course Orders Ordered: ED Orders 10/09/25 13:36 CXR [XR chest 1V] Stat ABG [Arterial Blood Gas] STAT EKG-12 Lead Stat 10/09/25 13:45 CBC Auto Diff [Complete Blood Count AUTO DIFF] Stat CMP [Comprehensive Metabolic Panel] Stat Troponin I Stat Vital Signs Vital signs: Vital Signs - 8 hr 10/09/25 12:37 10/09/25 13:09 10/09/25 13:15 Temperature 98.5 F Pulse Rate 68 74 76 Respiratory Rate 14 16 15 Blood Pressure 173/76 H Pulse Oximetry 94 99 99 Oxygen Delivery Method Room Air 10/09/25 13:15 10/09/25 13:20 10/09/25 13:20 Temperature Pulse Rate 80 Respiratory Rate 15 Blood Pressure 212/105 H 205/101 H Pulse Oximetry 100 Oxygen Delivery Method 10/09/25 13:25 10/09/25 13:25 10/09/25 13:30 Temperature Pulse Rate 75 Respiratory Rate 16 Blood Pressure 201/92 H 190/97 H Pulse Oximetry 98 Oxygen Delivery Method 10/09/25 13:30 10/09/25 13:35 10/09/25 13:35 Temperature Pulse Rate 71 70 Respiratory Rate 20 16 Blood Pressure 188/97 H Pulse Oximetry 98 99 Oxygen Delivery Method 10/09/25 13:40 10/09/25 13:40 10/09/25 13:50 Temperature Pulse Rate 71 Respiratory Rate 19 Blood Pressure 187/99 H 203/100 H Pulse Oximetry 99 Oxygen Delivery Method 10/09/25 13:50 10/09/25 13:55 10/09/25 13:55 Temperature Pulse Rate 72 74 Respiratory Rate 13 17 Blood Pressure 182/101 H Pulse Oximetry 99 99 Oxygen Delivery Method 10/09/25 14:00 10/09/25 14:00 10/09/25 14:05 Temperature Pulse Rate 73 Respiratory Rate 25 H Blood Pressure 179/98 H 176/96 H Pulse Oximetry Oxygen Delivery Method 10/09/25 14:05 10/09/25 14:10 10/09/25 14:10 Temperature Pulse Rate 68 67 Respiratory Rate 19 12 Blood Pressure 176/92 H Pulse Oximetry Oxygen Delivery Method 10/09/25 14:15 10/09/25 14:15 10/09/25 14:20 Temperature Pulse Rate 69 70 Respiratory Rate 12 12 Blood Pressure 176/93 H Pulse Oximetry 99 98 Oxygen Delivery Method 10/09/25 14:20 10/09/25 14:25 10/09/25 14:25 Temperature Pulse Rate 67 Respiratory Rate 12 Blood Pressure 172/91 H 165/88 H Pulse Oximetry 97 Oxygen Delivery Method 10/09/25 14:30 10/09/25 14:30 10/09/25 14:35 Temperature Pulse Rate 66 66 Respiratory Rate 12 12 Blood Pressure 150/82 H Pulse Oximetry 96 97 Oxygen Delivery Method 10/09/25 14:35 10/09/25 14:40 10/09/25 14:40 Temperature Pulse Rate 66 Respiratory Rate 11 L Blood Pressure 147/79 H 142/76 H Pulse Oximetry 98 Oxygen Delivery Method 10/09/25 14:45 10/09/25 14:45 10/09/25 14:50 Temperature Pulse Rate 65 Respiratory Rate 11 L Blood Pressure 133/75 135/75 Pulse Oximetry 97 Oxygen Delivery Method 10/09/25 14:50 10/09/25 14:55 10/09/25 14:55 Temperature Pulse Rate 66 67 Respiratory Rate 12 11 L Blood Pressure 133/74 Pulse Oximetry 97 98 Oxygen Delivery Method 10/09/25 15:00 10/09/25 15:00 10/09/25 15:05 Temperature Pulse Rate 66 66 Respiratory Rate 11 L 12 Blood Pressure 134/74 Pulse Oximetry 99 99 Oxygen Delivery Method 10/09/25 15:05 10/09/25 15:10 10/09/25 15:10 Temperature Pulse Rate 65 Respiratory Rate 12 Blood Pressure 132/74 130/71 Pulse Oximetry 97 Oxygen Delivery Method 10/09/25 15:15 10/09/25 15:15 Temperature Pulse Rate 64 Respiratory Rate 12 Blood Pressure 132/73 Pulse Oximetry 98 Oxygen Delivery Method MDM - SOB/Dyspnea Lab Data 10/09/25 13:45 10/09/25 13:45 Labs: Lab Results 10/09/25 Range/Units 13:45 WBC 7.9 (4.5-11.0) X10^3/uL RBC 4.52 (4.5-5.9) X10^6/uL Hgb 13.5 (13.5-17.5) g/dL Hct 38.8 L (41-53) % MCV 85.7 (80-100) fL MCH 29.8 (26-34) PG MCHC 34.7 (30-36) % RDW 14.3 (11.6-14.8) % Plt Count 177 (150-400) X10^3/uL Neut % (Auto) 66.8 (50-75) % Lymph % (Auto) 13.5 L (25-40) % Emmet % (Auto) 5.6 (3-14) % Eos % (Auto) 12.9 H (2-4) % Baso % (Auto) 1.2 (0-2) % Neut # (Auto) 5200 (7241-0502) /uL Lymph # (Auto) 1100 (9609-4118) /uL Emmet # (Auto) 400 (0-900) /uL Eos # (Auto) 1000 H (0-450) /uL Baso # (Auto) 100 (0-100) /uL Sodium 136 L (137-145) mmol/L Potassium 5.0 (3.4-5.1) mmol/L Chloride 97 L (98-107) mmol/L Carbon Dioxide 24 (22-32) mmol/L BUN 22 H (9-20) mg/dL Creatinine 5.54 H (0.66-1.25) mg/dL Estimated GFR 13 L (>60) mL/min BUN/Creatinine Ratio 4.0 L (6-22) Glucose 177 H (70-99) mg/dL Calcium 9.3 (8.4-10.2) mg/dL Total Bilirubin 0.8 (0.2-1.3) mg/dL AST 27 (17-59) IU/L ALT 19 (<50) IU/L Alkaline Phosphatase 52 (38-126) U/L Troponin I 0.029 (0.01-0.034) ng/mL Total Protein 8.6 H (6.3-8.2) g/dL Albumin 5.1 H (3.5-5.0) g/dL Globulin 3.5 (1.7-4.1) g/dL Albumin/Globulin Ratio 1.5 (1.0-2.8) Imaging Data Chest x-ray: Radiologist's Impression: PROCEDURE: XR CHEST 1V INDICATIONS: sob TECHNIQUE: One view of the chest was acquired. COMPARISON: [facility], , XR CHEST 1V, 07/19/2025, 15:21. FINDINGS: Surgical changes and devices: Tunneled left chest dialysis catheter in satisfactory position. Lungs and pleura: Lungs are clear. No pleural effusions or pneumothorax. Mediastinum: Mediastinal contours appear normal. Heart size is mildly enlarged. Bones and chest wall: No suspicious bony lesions. Overlying soft tissues appear unremarkable. IMPRESSION: No significant volume overload noted. ECG Data Interpretation: 1349 normal sinus rhythm, HR 70, NH 206, QTC 468 (proloned), left axis deviation, of soup and V3, T-wave inversion in V1 nonspecific. The left axis deviation, ST and T-wave abnormality as well as prolonged QT was seen on EKG on 07/19/2025 and appears largely unchanged. [facility] Narrative Medical decision making narrative: 35 male presents for fatigue and shortness of breath. Past medical history significant for anemia, diabetes mellitus type 1, CKD on dialysis (TWSa, last dialysis session yesterday), hypertension, hypothyroidism. Differential diagnosis: Carbon monoxide poisoning, ACS, anemia, pulmonary edema, hypoglycemia, hyperglycemia, other. Plan: Labs to include carboxyhemoglobin level, EKG, chest x-ray Labs: CBC without leukocytosis, anemia, thrombocytopenia, or left shift. Mild hyponatremia (Na 136), hypochloremia (Cl 97), elevated BUN 22, creatinine 5.54 which appears to be within patient's baseline ranges, GFR 13, glucose 177. Carboxyhemoglobin level 2. Imaging: Checks x-ray without any pleural effusions or pneumothorax there is no significant volume overload visualized. EKG: Left axis deviation with nonspecific ST and T-wave abnormalities as well as prolonged QT seen on prior EKGs. Nonischemic. ER Course: Patient arrived to the ER afebrile, vital signs normal aside from hypertension reporting 1 day history of fatigue and not feeling well with concerns for carbon monoxide poisoning. Physical exam findings were benign. In the ER, respiratory therapy obtain blood sample with carboxyhemoglobin level of 2. Labs and not reveal significant electrolyte derangement to explain the patient's fatigue. Chest x-ray was negative. Cardiac workup was not suggestive of ischemia. In the ER, patient was hypertensive and anxious and he stated that whenever he is hypertensive he gets short of breath. No additional antihypertensive was provided given patient stated that he had taken his antihypertensive medication approximately an hour ago. In the ER, patient's blood pressure trended downward, and as this occurred, his breathing and anxiety resolved. I discussed his workup and patient was discharged home. Discharge Plan Departure Patient Disposition: Home Clinical Impression: Weakness, Dialysis patient, Hypertension Activity Restrictions/Additional Instructions: You were seen the emergency department for shortness of breath, numbness, bloating, high blood pressure. In the ER: -- Blood count was not consistent with infection or anemia. your platelets were normal. -- Electrolytes and chemistry panel were within your normal ranges. -- EKG and cardiac enzyme was not suggestive of a heart attack. -- Chest xray revealed normal appearing lungs (no pneumonia or suggestion of viral infection). -- Dialysis catheter was in placed per chest xray. Your blood pressure went down in the ER. I offered a stomach xray to see if you had significant stool burden; however, you declined further imaging. Your symptoms improved after your blood pressure came down. Plan: -- Continue your home medications as prescribed. -- Follow your routine dialysis schedule. -- Return to the ER if you develop any new or worsening symptoms. Thank you for allowing me to be part of your care team. Take care and happy holidays. -- Dr. Joyce Prescriptions: No Action prazosin 1 mg capsule 1 mg PO ONCE PM escitalopram oxalate 10 mg tablet 5 mg PO DAILY Qty: 45 3RF (DME) Glucose: Test Strips 0 .Route .MEDSUPPLY Qty: 100 11RF Dose Instruction: As directed Rx Instructions: Test blood sugars up to 3 times daily (DME) FreeStyle Dilia 2 Eden Misc See Rx Instructions .Route Qty: 1 4RF Rx Instructions: Use to continuously monitor blood sugars clonidine 0.3 mg/24 hr patch weekly 1 patch transdermal QWEEK Qty: 4 5RF levothyroxine 150 mcg tablet 150 mcg PO QAM Qty: 90 3RF doxycycline hyclate 100 mg capsule 100 mg PO BID Qty: 10 0RF hydralazine 100 mg tablet 100 mg PO TID Patient Comments: TAKE ONE TABLET BY MOUTH THREE TIMES DAILY losartan 50 mg tablet 50 mg PO BID Patient Comments: TAKE ONE TABLET BY MOUTH NIGHTLY AT BEDTIME carvedilol 25 mg tablet 25 mg PO BID Rx Instructions: must administer with a meal/food furosemide 80 mg tablet 80 mg PO BID (DME) B-D PEN NEEDLE 8MM Qty: 400 11RF Dose Instruction: As directed Rx Instructions: TO ADMINISTER INSULIN UP TO 4 TIMES A DAY (DME) FreeStyle Dilia 2 Sensor Kit See Rx Instructions .Route Qty: 2 11RF Rx Instructions: Use to continuously monitor blood sugars (DME) pen needle, diabetic [BD Ultra-Fine Neelima Pen Needle] 32 gauge x 5/32 needle See Rx Instructions .ROUTE .MEDSUPPLY Qty: 100 4RF Rx Instructions: to adminster insulin four times daily felodipine 2.5 mg tablet extended release 24 hr 5 mg PO BID PRN clonidine HCl 0.1 mg tablet 0.1 mg PO 3XD PRN (Reason: blood pressure) isosorbide mononitrate 30 mg tablet extended release 24 hr 30 mg PO BID PRN insulin lispro 100 unit/mL insulin pen 1 - 20 unit SUBCUT 3XD insulin degludec 100 unit/mL (3 mL) insulin pen 13 unit SUBCUT DAILY sennosides [Jacinta-reena] 8.6 mg tablet 17.2 mg PO DAILY omeprazole 40 mg capsule,delayed release(DR/EC) 40 mg PO DAILY spironolactone 25 mg tablet 25 mg PO BID Referrals: Juaquin Moreland DO [Primary Care Provider, Family Practice] Stand Alone Forms: Patient Portal/API
--- NOTE | 2025-10-09 15:47 | PC.NURSE ---
Per parts remover (KB) pt declined ABG, provider aware.
== END 2025-10-09 16:05 | disposition home or self-care (01) ==
PROVIDERS: Emergency Provider Student in an Organized Health Care Education/Training Program; PCP Family Medicine
DX: I12.9 Hypertensive chronic kidney disease with stage 1 through stage 4 chronic kidney disease, or unspecified chronic kidney disease (principal); E10.22 Type 1 diabetes mellitus with diabetic chronic kidney disease; N18.9 Chronic kidney disease, unspecified; R53.1 Weakness; R53.83 Other fatigue; R55 Syncope and collapse; R20.0 Anesthesia of skin; R20.2 Paresthesia of skin; Z99.2 Dependence on renal dialysis
CPT/HCPCS: 36415; 71045; 80053; 84484; 85025; 93005; 93010; 99283; 99284